=== PATIENT | female | born 1955 | race Caucasian/White ===

== ENCOUNTER 2020-01-20 09:34 | Outpatient (CLI) | payer MEDICARE, OTHER, SELFPAY ==
--- NOTE | 2020-01-20 09:41 | CT_ITS ---
WS: [id number] CT LUNG CANCER SCREENING DLP: 92.11 mGy.cm DIvol: 2.85 mGy CLINICAL INFORMATION SCREENING VISIT: Initial exam. COMPARISON: 01/07/2016 FINDINGS Diagnostic quality: Satisfactory Comments: None. Lung Nodules: There are small peripheral micronodules in the periphery of the lungs. These nodules al l measure less than 3 mm. No groundglass attenuation. Benign calcified 8 mm granuloma LEFT lower lobe . No endobronchial lesions. Lungs: Moderate pulmonary hyperinflation from emphysema. Heart: Normal size heart. No coronary artery calcifications identified. Other findings: Benign calcified LEFT hilar lymph nodes. Mild atherosclerosis aorta. CT/CT lung screening [id number] IMPRESSION: LUNG-RADS: 2-Benign Appearance or Behavior FOLLOW UP: 12 Month: Continue annual screening with LDCT
== END 2020-01-20 09:35 | disposition home or self-care (01) ==
LOC: RAD 09:38
PROVIDERS: Family Provider Nurse Practitioner Family; Visit Provider Nurse Practitioner Family
DX: Z12.2 Encounter for screening for malignant neoplasm of respiratory organs (principal); F17.210 Nicotine dependence, cigarettes, uncomplicated; R91.8 Other nonspecific abnormal finding of lung field; J43.9 Emphysema, unspecified
CPT/HCPCS: G0297

== ENCOUNTER 2020-04-01 15:34 | Outpatient (CLI) | payer MEDICARE, OTHER, SELFPAY ==
[2020-04-01 16:20] LABS: INR 1.06 (0.8-1.2)
[2020-04-01 16:26] LABS: Basophils % 1.3 %; Eosinophils # 0.1 10^3/uL (0.0-0.8); Hematocrit 40.7 % (37.0-47.0); Hemoglobin 13.2 g/dL (11.5-15.3); Lymphocytes # 0.6 10^3/uL (0.8-4.8); Mean Corpuscular HGB Conc 32.4 g/dL (30.0-36.0); Mean Corpuscular Hemoglobin 31.1 pg (28.0-34.0); Mean Platelet Volume 12.1 fL (7.4-10.4); Monocytes # 0.4 10^3/uL (0.2-0.9); Monocytes % 15.3 %; Neutrophils # 1.31 10^3/uL (1.8-7.7); Neutrophils % 55.4 %; Nucleated Red Blood Cells % 0 %; Platelet Count 81 10^3/cmm (130-400); Red Blood Count 4.24 10^6/uL (4.1-5.3); Red Cell Distribution Width 12.4 % (12.1-15.1); White Blood Count 2.4 10^3/uL (4.0-10.0)
[2020-04-01 16:37] LABS: Protein Urine Neg (Negative); Urine Appearance Cloudy (CLEAR); Urine Color Yellow (Yellow); pH Urine 7 (5-7)
[2020-04-01 16:38] LABS: Bilirubin Urine Neg (NEGATIVE); Blood Urine Neg (Negative); Glucose Urine UA Norm (Normal); Ketones Urine Negative (Negative); Leukocyte Esterase Urine 2+ (Negative); Nitrate Urine Negative (Negative); Urobilinogen Urine Norm (Negative)
[2020-04-01 16:49] LABS: Alanine Aminotransferase 100 U/L (0-33); Albumin Level 3.9 g/dL (3.5-5.2); Alkaline Phosphatase 116 IU/L (35-105); Aspartate Amino Transferase 116 U/L (0-32); Blood Urea Nitrogen 14 mg/dL (8-23); Calcium 8.4 mg/dL (8.5-10.5); Carbon Dioxide 24 mmol/L (22-29); Chloride 105 mmol/L (98-107); Globulin 3.8 g/dL (1.3-4.6); Glomerular Filtration Rate 83.5 mL/min (90-130); Glucose 106 mg/dL (65-115); Osmolality Calculated 283 mOsm/kg (285-295); Sodium 138 mmol/L (136-145); Thyroid Stimulating Hormone 0.05 uIU/mL (0.27-4.20); Total Bilirubin 0.9 mg/dL (0.15-1.2); Total Protein 7.7 g/dL (6.6-8.7)
[2020-04-01 16:53] LABS: RBC Urine 0-4 /hpf (0-2); WBC Urine 15-25 /hpf (0-5)
[2020-04-01 16:54] LABS: Add Urine Culture? Yes; Amorphous Sediment Urine 2+; Bacteria Urine 1+
== END 2020-04-01 15:35 | disposition home or self-care (01) ==
PROVIDERS: Family Provider Nurse Practitioner Family; Visit Provider Nurse Practitioner Family
DX: K73.2 Chronic active hepatitis, not elsewhere classified (principal); E03.9 Hypothyroidism, unspecified; N30.00 Acute cystitis without hematuria
CPT/HCPCS: 80053; 81001; 84443; 85025; 85610; 87086

== ENCOUNTER 2020-04-12 06:57 | Outpatient (CLI) | payer MEDICARE, OTHER, SELFPAY ==
--- NOTE | 2020-04-12 07:12 | US_ITS ---
WS: [id number] RIGHT UPPER QUADRANT ULTRASOUND HISTORY: Cirrhosis COMPARISON: 07/25/2019 Liver: 14.4 cm in length. Liver is top normal size. Mild heterogeneity. Surface of the liver is irreg ular and lobular. No mass. No bile duct dilatation. Gallbladder: Normally distended gallbladder with diffuse gallbladder wall thickening and edema. Sever al stones are identified. Diffuse wall thickening is likely related to hepatocellular disease. No catrachita dence for acute cholecystitis. CBD: 0.3 cm Pancreas: Poorly visualized. Mid body is normal. Otherwise not well seen. Right kidney: 8.1 cm in length. Normal echogenicity with no mass or hydronephrosis. Aorta and IVC: Unremarkable. No ascites. US/US abdomen limited [id number] IMPRESSION: 1. Moderate to severe changes of cirrhosis. No mass. 2. Cholelithiasis. No evidence for acute cholecystitis.
== END 2020-04-12 06:58 | disposition home or self-care (01) ==
PROVIDERS: Visit Provider Nurse Practitioner Family
DX: B19.20 Unspecified viral hepatitis C without hepatic coma (principal); K74.60 Unspecified cirrhosis of liver; K80.20 Calculus of gallbladder without cholecystitis without obstruction
CPT/HCPCS: 76705

== ENCOUNTER → 2020-08-13 16:07 | Outpatient (BNVA) | payer MEDICARE, OTHER, SELFPAY | PROVIDERS: PCP Family Medicine Sports Medicine; Visit Provider Nurse Practitioner Family | DX: Z01.812 Encounter for preprocedural laboratory examination (principal); Z20.828 Contact with and (suspected) exposure to other viral communicable diseases | CPT/HCPCS: 87635 ==

== ENCOUNTER 2020-08-16 11:47 | Outpatient (CLI) | payer MEDICARE, OTHER, SELFPAY ==
--- NOTE | 2020-08-16 12:07 | CT_ITS ---
WS: [id number] CT ABDOMEN AND PELVIS NONCONTRAST HISTORY: GROSS HEMATURIA TECHNIQUE: Imaging performed through the abdomen and pelvis. Coronal and sagittal reformats are submi tted. All CT scans at [facility] use at least one of these dose optimization techniques: automated exposure control; mA and/or kV adjustment per patient size (includes targeted exams where d ose is matched to clinical indication); or iterative reconstruction. DLP: 1408.61 mGy.cm COMPARISON: None available. Lower thorax: Chronic emphysematous changes. No mass. Normal size heart. Liver: Marked nodularity involving the surface of the liver. No intrahepatic dilatation. No mass iden tified on this unenhanced study. Gallbladder: Normally distended gallbladder with a very large central calcification. Calcification is lamellated with a maximum diameter of 3.5 cm. No adjacent inflammation. Pancreas: Normal size and attenuation. Normal pancreatic duct. No pancreatitis or mass. Spleen: Enlarged spleen measuring 15.5 cm in length. Adrenal glands: Normal. No mass. Right kidney: Normal size kidney with no mass or hydronephrosis. Left kidney: Normal size kidney with no mass or hydronephrosis. Aorta: Mild atherosclerosis abdominal aorta with no aneurysm. No free fluid, intraperitoneal air or significant lymphadenopathy. GI tract: Mild constipation. The appendix is normal size. There is a calcification within the appendi x measuring 7 mm. Abdominal wall: Negative. No hernia. Pelvis: No free fluid or adenopathy. No wall thickening of the urinary bladder. Osseous structures: Moderate degenerative disc disease at L4-5 and L5-S1. CT/CT kidney stone [id number] IMPRESSION: 1. No renal or ureteral calcifications or obstruction. 2. Cholelithiasis. Large central gallstone within the lumen. No evidence for a cute cholecystitis. 3. Severe cirrhosis with hepatosplenomegaly. 4. Normal size appendix. Appendix contains an appendicolith with places the pa tient at increased risk for developing acute appendicitis.
== END 2020-08-16 11:48 | disposition home or self-care (01) ==
LOC: RAD 11:50
PROVIDERS: PCP Family Medicine Sports Medicine; Visit Provider Nurse Practitioner Family
DX: R31.0 Gross hematuria (principal); K80.20 Calculus of gallbladder without cholecystitis without obstruction; K74.60 Unspecified cirrhosis of liver; R16.2 Hepatomegaly with splenomegaly, not elsewhere classified
CPT/HCPCS: 74176

== ENCOUNTER 2020-08-19 14:07 | Outpatient (CLI) | payer MEDICARE, OTHER, SELFPAY ==
--- NOTE | 2020-08-19 14:25 | PFTS_ITS ---
Date of Study:08/19/20 Date of Dictation: MECHANICS: Forced vital capacity (FVC) is . Forced expiratory volume in one second (FEV1) is . FEV1/FVC is . FLOW VOLUME LOOP: . LUNG VOLUMES: Total lung capacity (TLC) is . Residual volume (RV) is . DIFFUSING CAPACITY FOR CARBON MONOXIDE: . INTERPRETATION: The pulmonary function tests are . mechanics and lung volumes. Gas exchange (DLCO) is . MTDD
--- NOTE | 2020-08-19 14:25 | PFTS_ITS ---
Date of Study:08/19/20 Date of Dictation: MECHANICS: Forced vital capacity (FVC) is normal. Forced expiratory volume in one second (FEV1) is normal. FEV1/FVC is normal. FLOW VOLUME LOOP: Normal. LUNG VOLUMES: Not measured DIFFUSING CAPACITY FOR CARBON MONOXIDE: Not measured. INTERPRETATION: The prebronchodilator spirometry is normal. MTDD
--- NOTE | 2020-08-19 15:07 | XR_ITS ---
WS: [id number] SCREENING DEXA SCAN [employer] CLINICAL INFORMATION: ENCOUNTER FOR SCREENING FOR OSTEOPOROSIS COMPARISON: None. FINDINGS: The L1-L4 bone mineral density measures 0.959 g/cm2. This corresponds to a T score score of -1.8 and Z score of -0.8. Left femoral neck bone mineral density measures 0.878 g/cm2. This corresponds to a T score of -1.0 an d Z score of -0.1. Right femoral neck bone mineral density measures 0.847 g/cm2. This corresponds to a T score -1.3of an d Z score of -0.3. Mean femoral neck bone mineral density measures 0.863 g/cm2. This corresponds to a T score of -1.2 an d Z score of -0.2. Left forearm bone mineral density 0.66 with a T score of -2.4 and Z score of -0.8 XR/XR DEXA peripheral [id number] IMPRESSION: Osteopenia Patient's FRAX calculated 10 year probability for major osteoporotic fracture i s 29.3 % and osteoporotic hip fracture is 7.1%.
== END 2020-08-19 14:08 | disposition home or self-care (01) ==
LOC: RT 14:11
PROVIDERS: PCP Family Medicine Sports Medicine; Visit Provider Nurse Practitioner Family
DX: Z13.820 Encounter for screening for osteoporosis (principal); J44.9 Chronic obstructive pulmonary disease, unspecified; M85.88 Other specified disorders of bone density and structure, other site
CPT/HCPCS: 77081; 94010

== ENCOUNTER → 2020-08-27 09:09 | Outpatient (BNVA) | payer MEDICARE, OTHER, SELFPAY | PROVIDERS: PCP Family Medicine Sports Medicine; Referring Provider Nurse Practitioner Family; Visit Provider Urology | DX: R31.0 Gross hematuria (principal); N35.92 Unspecified urethral stricture, female; N39.9 Disorder of urinary system, unspecified | CPT/HCPCS: 81003 ==

== ENCOUNTER 2021-08-02 11:22 | Outpatient (CLI) | payer MEDICARE, OTHER, SELFPAY ==
--- NOTE | 2021-08-02 | CT_ITS ---
WS: [id number] LDCT LUNG CANCER SCREENING HISTORY: NICOTINE DEPENDENCE,CIGARETTES TECHNIQUE: Axial imaging performed from the apices to 1 cm below the costophrenic angles. Coronal and sagittal reformats are submitted with axial MIP series. All CT scans at [facility] use at least one of these dose optimization techniques: automated exposure control; mA and/or kV adjustment per patient size (includes targeted exams where dose is matched to clinical indication); or iterativ e reconstruction. DLP: 54.58 mGy.cm DIvol: 1.58 mGy COMPARISON: 01/20/2020 Diagnostic quality: Satisfactory Lung Nodules: No enlarging or new pulmonary nodules. Benign granuloma LEFT lower lobe. Lungs: Hyperexpanded with moderate pulmonary hypertension. No pneumonia. Heart: Normal size heart. No effusion. Other findings: Mild atherosclerotic plaque within the aorta. Normal size pulmonary artery. Large gallbladder calcification measures 3.[address]/CT lung screening [id number] IMPRESSION: LUNG-RADS: 2-Benign Appearance or Behavior FOLLOW UP: 12 Month: Continue annual screening with LDCT OTHER FINDINGS (S MODIFIER): None.
== END 2021-08-02 11:23 | disposition home or self-care (01) ==
PROVIDERS: PCP Family Medicine Sports Medicine; Visit Provider Nurse Practitioner Family
DX: Z12.2 Encounter for screening for malignant neoplasm of respiratory organs (principal); F17.210 Nicotine dependence, cigarettes, uncomplicated; R31.0 Gross hematuria
CPT/HCPCS: 71271; 81003; 87086

== ENCOUNTER → 2021-09-20 15:37 | Outpatient (BNVA) | payer MEDICARE, OTHER, SELFPAY | PROVIDERS: PCP Surgery; Visit Provider Urology | DX: N30.80 Other cystitis without hematuria (principal) | CPT/HCPCS: 81003; 87077; 87086; 87184 ==

== ENCOUNTER → 2021-10-24 14:10 | Outpatient (BNVA) | payer MEDICARE, OTHER, SELFPAY | PROVIDERS: PCP Surgery; Visit Provider Social Worker | DX: F43.21 Adjustment disorder with depressed mood (principal); F31.9 Bipolar disorder, unspecified | CPT/HCPCS: 90837; 90834 ==

== ENCOUNTER → 2021-12-01 14:16 | Outpatient (BNVA) | payer MEDICARE, OTHER, SELFPAY | PROVIDERS: PCP Surgery; Visit Provider Urology | DX: N30.80 Other cystitis without hematuria (principal) | CPT/HCPCS: 81003 ==

== ENCOUNTER → 2022-02-07 14:28 | Outpatient (BNVA) | payer MEDICARE, OTHER, SELFPAY | PROVIDERS: PCP Surgery; Visit Provider Urology | DX: N30.80 Other cystitis without hematuria (principal); N35.92 Unspecified urethral stricture, female | CPT/HCPCS: 51798; 81003; 87086; 99213 ==

== ENCOUNTER → 2022-04-11 13:03 | Outpatient (BNVA) | payer MEDICARE, SELFPAY | PROVIDERS: PCP Surgery; Visit Provider Urology | DX: N30.80 Other cystitis without hematuria (principal); N35.92 Unspecified urethral stricture, female; R35.1 Nocturia | CPT/HCPCS: 51798; 52281; 81003; 99213 ==

== ENCOUNTER → 2022-04-17 10:44 | Outpatient (BNVA) | payer MEDICARE, SELFPAY | PROVIDERS: PCP Surgery; Visit Provider Nurse Practitioner Family | DX: N30.80 Other cystitis without hematuria (principal); N35.92 Unspecified urethral stricture, female | CPT/HCPCS: 51700; 99213 ==

== ENCOUNTER → 2022-05-02 13:40 | Outpatient (BNVA) | payer MEDICARE, SELFPAY | PROVIDERS: PCP Surgery; Visit Provider Internal Medicine Cardiovascular Disease | DX: I11.0 Hypertensive heart disease with heart failure (principal); I50.32 Chronic diastolic (congestive) heart failure; B18.2 Chronic viral hepatitis C; F17.200 Nicotine dependence, unspecified, uncomplicated; R07.9 Chest pain, unspecified | CPT/HCPCS: 93005; 99214 ==

== ENCOUNTER → 2022-07-06 15:13 | Outpatient (BNVA) | payer MEDICARE, SELFPAY | PROVIDERS: PCP Surgery; Visit Provider Urology | DX: N30.80 Other cystitis without hematuria (principal); N35.92 Unspecified urethral stricture, female | CPT/HCPCS: 51798; 81003; 99213 ==

== ENCOUNTER → 2022-09-28 15:52 | Outpatient (BNVA) | payer MEDICARE, SELFPAY | PROVIDERS: PCP Surgery; Visit Provider Urology | DX: N30.80 Other cystitis without hematuria (principal); N35.82 Other urethral stricture, female | CPT/HCPCS: 51798; 81003; 99213 ==

== ENCOUNTER → 2022-10-31 13:48 | Outpatient (BNVA) | payer MEDICARE, SELFPAY | PROVIDERS: PCP Surgery; Visit Provider Internal Medicine Cardiovascular Disease | DX: I11.0 Hypertensive heart disease with heart failure (principal); I50.32 Chronic diastolic (congestive) heart failure; G20 Parkinson's disease; F17.210 Nicotine dependence, cigarettes, uncomplicated | CPT/HCPCS: 99214 ==

== ENCOUNTER 2022-12-21 10:11 | Outpatient (CLI) | payer MEDICARE, SELFPAY ==
--- NOTE | 2022-12-21 10:31 | CT_ITS ---
WS: [id number] LDCT LUNG CANCER SCREENING TECHNIQUE: Noncontrast CT of the chest with coronal and sagittal reformatted images. CLINICAL INFORMATION: NICOTINE DEPENDENCE,CIGARETTES COMPARISON: 2020 DLP: 60.67 mGy.cm DIvol: Mean CTDIvol: 1.00 (mGy) All CT scans at [facility] use at least one of these dose optimization techniques: automat ed exposure control; mA and/or kV adjustment per patient size (includes targeted exams where dose is matched to clinical indication); or iterative reconstruction. FINDINGS: Calcified granuloma LEFT lower lobe. Mild chronic emphysematous changes. No acute infiltrat es. Mild aortic calcification. Normal caliber thoracic aorta. Coronary calcification. No mediastinal or hilar lymphadenopathy. No axillary lymphadenopathy. Dense cholelithiasis. Adrenal glands are normal. Mild thoracic kyphosis. CT/CT lung screening [id number] IMPRESSION: LUNG-RADS: 2-Benign Appearance or Behavior FOLLOW UP: 12 Month: Continue annual screening with LDCT
== END 2022-12-21 10:12 | disposition home or self-care (01) ==
PROVIDERS: PCP Surgery; Visit Provider Nurse Practitioner Family
DX: Z12.2 Encounter for screening for malignant neoplasm of respiratory organs (principal); F17.210 Nicotine dependence, cigarettes, uncomplicated
CPT/HCPCS: 71271

== ENCOUNTER → 2023-01-24 13:33 | Outpatient (BNVA) | payer MEDICARE, SELFPAY | PROVIDERS: PCP Surgery; Visit Provider Urology | DX: N30.80 Other cystitis without hematuria (principal); R33.9 Retention of urine, unspecified; Z79.2 Long term (current) use of antibiotics; N35.92 Unspecified urethral stricture, female | CPT/HCPCS: 81003; 99213 ==

== ENCOUNTER → 2023-05-08 13:28 | Outpatient (BNVA) | payer MEDICARE, SELFPAY | PROVIDERS: PCP Surgery; Visit Provider Internal Medicine Cardiovascular Disease | DX: I11.0 Hypertensive heart disease with heart failure (principal); I50.32 Chronic diastolic (congestive) heart failure; G20 Parkinson's disease; B18.2 Chronic viral hepatitis C; F17.200 Nicotine dependence, unspecified, uncomplicated; R07.9 Chest pain, unspecified; R06.02 Shortness of breath | CPT/HCPCS: 36415; 80048; 83880; 99204 ==

== ENCOUNTER 2023-06-04 14:54 | Oncology outpatient (recurring) (ONCR) | payer MEDICARE, SELFPAY ==
[2023-06-04 17:16] LABS: Thyroid Stimulating Hormone 0.73 uIU/mL (0.27-4.20); Vitamin B12 585 pg/mL (232-1245)
[2023-06-04 17:33] LABS: HIV 1 & 2 Antibody Non-Reactive (Non-Reactiv); HIV 1 & 2 Antigen Non-Reactive (Non-Reactiv)
[2023-06-04 17:49] LABS: Folate Level > 20.0 ng/mL (4.8-37.3)
[2023-06-05 22:09] LABS: PTT-LA-Screen 31 sec (< OR = 40)
[2023-06-07 11:54] LABS: Anti-Nuclear Antibody Screen POSITIVE (NEGATIVE); Anti-Nuclear Antibody Titer > OR = 1:1280 titer
== END 2023-06-09 23:59 | disposition home or self-care (01) ==
LOC: ONCMED 14:55
PROVIDERS: PCP Surgery; Visit Provider Internal Medicine Medical Oncology
DX: D69.6 Thrombocytopenia, unspecified (principal); D72.810 Lymphocytopenia; I50.32 Chronic diastolic (congestive) heart failure; D73.1 Hypersplenism; K76.6 Portal hypertension
CPT/HCPCS: 36415; 82607; 82746; 84443; 85613; 85730; 86038; 87806; 99205

== ENCOUNTER 2023-07-03 12:36 | Oncology outpatient (recurring) (ONCR) | payer MEDICARE, SELFPAY | END 2023-07-10 23:59 | disposition home or self-care (01) | LOC: ONCMED 12:36 | PROVIDERS: PCP Surgery; Visit Provider Internal Medicine Medical Oncology | DX: D69.59 Other secondary thrombocytopenia (principal); D73.1 Hypersplenism; D72.810 Lymphocytopenia; Z79.899 Other long term (current) drug therapy | CPT/HCPCS: 99213 ==

== ENCOUNTER 2023-08-15 13:55 | Emergency (ER) | payer MEDICARE, SELFPAY ==
--- NOTE | 2023-08-15 14:02 | ECG_ITS ---
[facility] Test Date: 2023-08-15 Pat Name: Bárbara Mayfield Department: Room: Gender: Female Supervisor Coating: : 1955 Requested By: Sydney Camacho Order Number: [id number] Diane MD: Redd Hunt M.D. Measurements Intervals [place] Rate: 63 P: 77 NC: 139 QRS: -15 QRSD: 106 T: 62 QT: 398 QTc: 410 Interpretive Statements SINUS RHYTHM INCOMPLETE RIGHT BUNDLE BRANCH BLOCK [90+ ms QRS DURATION, TERMINAL R IN V1/V2, 40+ ms S IN I/aVL/V4/V5/V6] Non specific ST T wave changes Compared to ECG 12/07/2015 13:02:45 Incomplete right bundle-branch block now present Electronically Signed On 08-15-2023 15:29:10 HUMAN RESOURCES BENEFITS ASSISTANT by Redd Hunt M.D. [email or web address]/store/[id number]
--- NOTE | 2023-08-15 14:05 | XR_ITS ---
WS: [id number] Portable AP upright chest, 08/15/2023 Clinical Data: cp Comparison: Portable chest, 12/07/2015. Findings: No nodules, masses or effusions are seen. The heart is normal. The pulmonary vascularity is not increased. No pneumonia or pneumothorax is seen. There are calcified granulomas in both lungs. T he thoracic aorta shows mild tortuosity. There are monitor leads on the chest wall. Impression: Atherosclerosis and old granulomatous disease.
--- NOTE | 2023-08-15 14:05 | ECG_ITS ---
[facility] Test Date: 2023-08-15 Pat Name: Bárbara Mayfield Department: Room: Gender: Female Aligning Inspector: : 1955 Requested By: Sydney Camacho Order Number: [id number] Diane MD: Redd Hunt M.D. Measurements Intervals [place] Rate: 62 P: 73 AL: 147 QRS: 33 QRSD: 101 T: 66 QT: 403 QTc: 412 Interpretive Statements SINUS RHYTHM INCOMPLETE RIGHT BUNDLE BRANCH BLOCK [90+ ms QRS DURATION, TERMINAL R IN V1/V2, 40+ ms S IN I/aVL/V4/V5/V6] Compared to ECG 12/07/2015 13:02:45 Incomplete right bundle-branch block now present Electronically Signed On 08-15-2023 15:28:44 TONGUE AND QUARTER STITCHER by Redd Hunt M.D. [id number]
[2023-08-15 14:11] VITALS: BP 164/69; PULSE 62; RESP 18; TEMP 37.2; O2SAT 93; BMI 31.8
[2023-08-15 14:15] VITALS: BP 164/69; PULSE 64; RESP 18; O2SAT 92
--- NOTE | 2023-08-15 14:17 | ED_ITS ---
HPI - Chest Pain 2 General: Chief Complaint: Chest Pain Stated Complaint: chest pain Time Seen by Provider: 08/15/23 14:08 Source: patient Mode of arrival: ambulatory Limitations: no limitations History of Present Illness: 68-year-old female states that over the last 5 days she has had cough along with congestion she is a chronic smoker. She has been having sharp pains in her left chest over the last 5 days as well as states it is much worse with her cough and with palpation denies any known fever denies any vomiting or diarrhea. Associated symptoms: Reports dyspnea; Deny abdominal pain, fever(s), nausea or vomiting Review of Systems 2 Const: Denies: fever(s), chills, body aches or change in appetite Eyes: Denies: blurry vision or eye discomfort ENMT: Denies: throat pain or dental pain Card: Reports: chest pain Resp: Reports: dyspnea and non-productive cough GI: Denies: abdominal pain, nausea, vomiting or diarrhea : Denies: dysuria Musc: Denies: neck pain or back pain Skin/Breast: Denies: rash Neuro: Denies: headache(s) Psych: Denies: depression Hal/Lymph: Denies: easy bruising All/Imm: Denies: urticaria PFSH ED 2 PFSH: Medical History Bipolar disorder CHF (congestive heart failure) Cystitis cystica Gross hematuria Hepatitis C HTN (hypertension) Urethral stricture Discovered during gross hematuria work-up August 2020. Dilated and started SCIC for stricture patency maintenance. Family History Mother , at age 68 Myocardial infarct CAD (coronary artery disease), Onset Age: 50 Diabetes Cancer throat Lung disease Father , at age 77 Myocardial infarct CAD (coronary artery disease), Onset Age: 50 Stroke Hypertension Parkinson disease Dementia Brother Lung disease Sister Lung disease Denies family history of Clotting disorder Chronic kidney disease (CKD) Suicide Anesthesia complication Bleeding disorder Social History Smoking and tobacco/nicotine status: current every day tobacco/nicotine user cigarettes Packs smoked per day: 0.5 Years cigarettes smoked: 40 [ Other cigarette details: Trying to quit] Quit status (tobacco/nicotine): has tried quititng Alcohol intake: never Marital status: / Current occupational status: retired Course 2 Vital Signs: Vital signs: Vital Signs Temperature 98.9 F 08/15/23 14:11 Pulse Rate 63 08/15/23 17:19 Respiratory Rate 21 H 08/15/23 17:19 Blood Pressure 154/84 08/15/23 17:19 Pulse Oximetry 90 08/15/23 17:19 Oxygen Delivery Me thod Room Air 08/15/23 14:36 MDM - Chest Pain Medical Decision Making Patient presents for chest pains atypical in nature she is point tender on exam likely chest wall pain from coughing she has no signs of pneumonia does have a history of COPD likely has an upper respiratory infection we will did give her Decadron here she continue breathing treatments at home. She has no signs of acute coronary syndrome no signs of dissection no signs of pulmonary embolus. She is return to the ER if worsening. Medical Records I reviewed the patient's medical records. Lab Data I reviewed the patient's lab results. 08/15/23 14:24 08/15/23 14:24 Laboratory Results WBC 4.40 10^3/uL (3.29-11.43) 08/15/23 14:24 RBC 4.48 10^6/uL (3.85-5.65) 08/15/23 14:24 Hgb 14.10 g/dL (11.27-16.99) 08/15/23 14:24 Hct 42.1 % (36-47) 08/15/23 14:24 MCV 94.0 fl (85-98) 08/15/23 14:24 MCH 31.5 pg (27-33) 08/15/23 14:24 MCHC 33.5 g/dL (30-55) 08/15/23 14:24 RDW 13.2 % (12.1-15.1) 08/15/23 14:24 Plt Count 67 10^3/cmm (157-399) L 08/15/23 14:24 MPV 10.8 fL (7.4-10.4) H 08/15/23 14:24 Neut % (Auto) 68.4 % 08/15/23 14:24 Lymph % (Auto) 15.2 % 08/15/23 14:24 Campbell % (Auto) 13.4 % 08/15/23 14:24 Eos % (Auto) 2.0 % 08/15/23 14:24 Baso % (Auto) 0.5 % 08/15/23 14:24 Neut # (Auto) 3.01 10^3/uL (1.8-7.7) 08/15/23 14:24 Lymph # (Auto) 0.7 10^3/uL (0.8-4.8) L 08/15/23 14:24 Campbell # (Auto) 0.6 10^3/uL (0.2-0.9) 08/15/23 14:24 Eos # (Auto) 0.1 10^3/uL (0.0-0.8) 08/15/23 14:24 Baso # (Auto) 0.0 10^3/uL (0.0-0.1) 08/15/23 14:24 Nucleated RBC % (auto) 0 % 08/15/23 14:24 Nucleated RBCs # 0.0 /100WBC 08/15/23 14:24 Sodium 141 mmol/L (136-145) 08/15/23 14:24 Potassium 3.7 mmol/L (3.5-5.1) 08/15/23 14:24 Chloride 105 mmol/L (98-107) 08/15/23 14:24 Carbon Dioxide 27 mmol/L (22-29) 08/15/23 14:24 Anion Gap 12.7 (5-19) 08/15/23 14:24 BUN 16 mg/dL (8-23) 08/15/23 14:24 Creatinine 0.9 mg/dL (0.5-0.9) 08/15/23 14:24 GFR Calculation 61.9 mL/min (90-130) L 08/15/23 14:24 Glucose 96 mg/dL (65-115) 08/15/23 14:24 Calculated Osmolality 293 mOsm/kg (285-295) 08/15/23 14:24 Calcium 9.0 mg/dL (8.5-10.5) 08/15/23 14:24 Total Bilirubin 0.9 mg/dL (0.15-1.2) 08/15/23 14:24 AST 49 U/L (0-32) H 08/15/23 14:24 ALT 28 U/L (0-33) 08/15/23 14:24 Alkaline Phosphatase 82 U/L (35-105) 08/15/23 14:24 Troponin T Baseline 14 ng/L (0-10) H 08/15/23 14:24 Troponin T 120 Minute 13.32 ng/L (0-10) H 08/15/23 16:23 Delta Troponin T -0.68 ABS# (0-10) L 08/15/23 16:23 Total Protein 7.7 g/dL (6.6-8.7) 08/15/23 14:24 Albumin 3.8 g/dL (3.5-5.2) 08/15/23 14:24 Globulin 3.9 g/dL (1.3-4.6) 08/15/23 14:24 SARS-CoV-2 Ag (Rapid) negative (Negative) 08/15/23 15:13 All radiology interpretation(s) finalized by discharge EKG Data EKG 1: I personally reviewed and interpreted this EKG as follows: EKG interpretation date: 08/15/23 EKG interpretation time: 14:02 Interpretation: nsr hr [address] or t wave abnormalities qrs 101 qtc 409 Discharge Plan Discharge Patient Disposition: Home Clinical Impression: Acute upper respiratory infection, Chest wall pain Condition: Stable Prescriptions: New Naprosyn 500 mg tablet 500 mg PO BID PRN (Reason: pain) Qty: 20 0RF No Action albuterol sulfate [Ventolin HFA] 90 mcg/actuation HFA aerosol inhaler 2 puff INHALATION Q6H PRN (Reason: Shortness Of Breath Or Wheezing) magnesium oxide 400 mg magnesium capsule 400 mg PO DAILY potassium chloride 10 mEq tablet extended release 10 meq PO DAILY levothyroxine 100 mcg capsule 100 mcg PO DAILY pregabalin 100 mg capsule 100 mg PO BID alprazolam 0.25 mg tablet 0.25 mg PO DAILY omeprazole 20 mg capsule,delayed release(DR/EC) 20 mg PO DAILY buspirone 5 mg tablet 5 mg PO TID albuterol sulfate 2.5 mg/0.5 mL solution for nebulization 10 mg inhalation Q4H PRN (Reason: Shortness Of Breath Or Wheezing) nitroglycerin 0.4 mg tablet, sublingual 0.4 mg sublingual Q5M PRN (Reason: Chest Pain) Rx Instructions: do not exceed 3 doses per episode Probiotic (B. coagulans) 10 billion cell capsule,delayed release(DR/EC) 10 cell PO DAILY isosorbide mononitrate 30 mg tablet extended release 24 hr 15 mg PO DAILY Qty: 45 3RF furosemide 20 mg tablet 20 mg PO DAILY Qty: 90 3RF atenolol 25 mg tablet 25 mg PO DAILY sertraline 100 mg tablet 100 mg PO DAILY carbidopa-levodopa 25-100 mg tablet 1 tab PO TID nitrofurantoin macrocrystal 100 mg capsule 100 mg PO BID Rx Instructions: TAKE 1 CAPSULE BY MOUTH TWICE DAILY WITH MEAL/FOOD Discharge Orders: Discharge ED (Routine); Ordered 08/15/23 Ordered By: Sydney Camacho Referrals: BUNNY ADEN MD [Primary Care Provider] - 1-3 days Discharge Diet: Advance as tolerated Discharge Activity: Resume usual activity Patient Instructions: Upper Respiratory Infection (ED), Chest Wall Pain (ED) Coding Level of Care Code ED Warhead Maintenance Specialist for Barbara Yoder
[2023-08-15 14:36] VITALS: PULSE 62; RESP 16; O2SAT 94
[2023-08-15] MEDS: ondansetron 2 mg/ML SDV 2 mL 4 MG IVP (14:37)
[2023-08-15] MEDS: morphine 4 mg/mL SDV 1 mL IVP (14:37)
[2023-08-15] MEDS: ipratropium-albuterol 3 mL Neb INHALATION (14:39)
[2023-08-15 14:41] LABS: Basophils % 0.5 %; Eosinophils # 0.1 10^3/uL (0.0-0.8); Hematocrit 42.1 % (36-47); Lymphocytes # 0.7 10^3/uL (0.8-4.8); Lymphocytes % 15.2 %; Mean Corpuscular HGB Conc 33.5 g/dL (30-55); Mean Corpuscular Hemoglobin 31.5 pg (27-33); Mean Platelet Volume 10.8 fL (7.4-10.4); Monocytes # 0.6 10^3/uL (0.2-0.9); Monocytes % 13.4 %; Neutrophils # 3.01 10^3/uL (1.8-7.7); Neutrophils % 68.4 %; Nucleated Red Blood Cells % 0 %; Platelet Count 67 10^3/cmm (157-399); Red Blood Count 4.48 10^6/uL (3.85-5.65); Red Cell Distribution Width 13.2 % (12.1-15.1)
[2023-08-15 14:47] VITALS: PULSE 65
[2023-08-15 14:57] LABS: Alanine Aminotransferase 28 U/L (0-33); Albumin Level 3.8 g/dL (3.5-5.2); Alkaline Phosphatase 82 U/L (35-105); Anion Gap 12.7 (5-19); Aspartate Amino Transferase 49 U/L (0-32); Blood Urea Nitrogen 16 mg/dL (8-23); Carbon Dioxide 27 mmol/L (22-29); Chloride 105 mmol/L (98-107); Globulin 3.9 g/dL (1.3-4.6); Glomerular Filtration Rate 61.9 mL/min (90-130); Glucose 96 mg/dL (65-115); Osmolality Calculated 293 mOsm/kg (285-295); Potassium 3.7 mmol/L (3.5-5.1); Sodium 141 mmol/L (136-145); Total Bilirubin 0.9 mg/dL (0.15-1.2); Total Protein 7.7 g/dL (6.6-8.7)
[2023-08-15 14:58] LABS: Troponin(5th) Baseline 14 ng/L (0-10)
[2023-08-15 15:33] LABS: SARS Covid-2 Antigen negative (Negative)
--- NOTE | 2023-08-15 15:52 | PC.PHAR ---
EXTERNAL MED LIST SHOWS CARBIDOPA-LEVODOPA 25-100 TID FILLED 05/2023 90DS ALSO SHOWS CARBIDOPA-LEVODOPA 10-100 TID FILLED 07/05/23 90DS- PT HAS MEDIICATIONS IN THE ROOM WITH HER AND ONLY HAS THE 25-100 TID FILLED IN - PT STS THAT IS THE ONLY ONE SHE IS TAKING- SHIRA STATES THEY FILLED THE 10-100 IN JUNE AND IT WAS PICKED UP
--- NOTE | 2023-08-15 16:09 | ECG_ITS ---
[facility] Test Date: 2023-08-15 Pat Name: Bárbara Mayfield Department: Room: Gender: Female Diesel Technician: : 1955 Requested By: Sydney Camacho Order Number: [id number] Diane MD: Redd Hunt M.D. Measurements Intervals [place] Rate: 61 P: 61 OK: 156 QRS: 1 QRSD: 99 T: 61 QT: 442 QTc: 446 Interpretive Statements SINUS RHYTHM INCOMPLETE RIGHT BUNDLE BRANCH BLOCK [90+ ms QRS DURATION, TERMINAL R IN V1/V2, 40+ ms S IN I/aVL/V4/V5/V6] Compared to ECG 08/15/2023 14:05:50 No significant changes Electronically Signed On 08-15-2023 16:40:51 PAINT ROLLER COVERS SUPERVISOR by Redd Hunt M.D. [id number]
[2023-08-15 16:52] LABS: Troponin 5 2HR 13.32 ng/L (0-10)
[2023-08-15 16:54] LABS: Troponin 5 2HR Delta -0.68 ABS# (0-10)
[2023-08-15] MEDS: dexamethasone 10 mg/mL INJ IVP (17:12)
[2023-08-15 17:19] VITALS: BP 154/84; PULSE 63; RESP 21; O2SAT 90
== END 2023-08-15 17:20 | disposition home or self-care (01) ==
PROVIDERS: Emergency Provider Emergency Medicine; PCP Surgery
DX: J06.9 Acute upper respiratory infection, unspecified (principal); R07.89 Other chest pain; Z11.52 Encounter for screening for COVID-19; F17.210 Nicotine dependence, cigarettes, uncomplicated; I11.0 Hypertensive heart disease with heart failure; I50.9 Heart failure, unspecified; Z86.19 Personal history of other infectious and parasitic diseases
CPT/HCPCS: 36415; 71045; 80053; 84484; 85025; 87426; 93005; 94640; 96374; 96375; 99285; J1100; J2270; J2405

== ENCOUNTER 2023-08-23 09:06 | Outpatient (BNVA) | payer MEDICARE, SELFPAY | END 2023-08-23 11:03 | disposition home or self-care (01) | PROVIDERS: PCP Surgery; Visit Provider Internal Medicine Hematology & Oncology | DX: D69.59 Other secondary thrombocytopenia (principal); B18.2 Chronic viral hepatitis C; K74.69 Other cirrhosis of liver; R16.2 Hepatomegaly with splenomegaly, not elsewhere classified; M77.32 Calcaneal spur, left foot; F17.210 Nicotine dependence, cigarettes, uncomplicated | CPT/HCPCS: 36415; 82105; 85025; 87522; 99214 ==

== ENCOUNTER 2023-10-08 10:00 | Oncology outpatient (recurring) (ONCR) | payer MEDICARE, SELFPAY ==
--- NOTE | 2023-09-13 15:08 | MM_ITS ---
WS: [id number] BILATERAL SCREENING DIGITAL TOMOSYNTHESIS MAMMOGRAM WITH CAD HISTORY: SCREENING COMPARISON: 09/28/2014 Bilateral CC and MLO views with tomosynthesis and synthetic mammography submitted. Computer aided det ection analyzed. Breast composition: There are scattered areas of fibroglandular density. No suspicious masses, microc alcifications or architectural distortion. Long-term stability 6 mm nodule in the medial RIGHT breast . IMPRESSION: MM/[place] [id number] BI-RADS: 2-Benign FOLLOW UP: 1 Year Follow-up
== END 2023-10-10 23:59 | disposition home or self-care (01) ==
PROVIDERS: PCP Surgery; Visit Provider Internal Medicine Medical Oncology
DX: Z53.9 Procedure and treatment not carried out, unspecified reason (principal)
CPT/HCPCS: 36415; 77063; 77067; 82105; 85025; 87522; 99214

== ENCOUNTER 2023-12-21 10:05 | Outpatient (CLI) | payer MEDICARE, SELFPAY ==
--- NOTE | 2023-12-21 10:45 | US_ITS ---
WS: [id number] Complete ABDOMINAL ULTRASOUND HISTORY: hep c COMPARISON: 04/12/2020 Liver: 14.8 cm in length. Cirrhotic liver. Marked nodularity along the surface of the liver. No mass identified. Portal Vein: Normal hepatopetal flow with monophasic waveform. Gallbladder: Normally distended gallbladder with a large central stone. Calcification measures 2.9 cm in diameter and fills a large portion of the gallbladder. There may be a small amount of sludge mariana cent to the stone. CBD: 0.7 cm Pancreas: Normal size and echogenicity. Right kidney: 10.4 cm x 4.7 x 4.4 cm. Cortex:1.2 cm. Normal size and echogenicity. No hydronephrosis or mass. Left kidney: 10.2 cm x 4.8 cm x 4.1 cm. Cortex: 1.0 cm. Normal size and echogenicity. No hydronephrosis or mass. Spleen: 14.4 cm. Mildly enlarged spleen. Aorta and IVC: Poorly visualized. Impression: 1. Cholelithiasis. There is a large stone within the lumen of the gallbladder. No wall thickening. 2. Common bile duct is measuring top normal size. 3. Advanced cirrhosis with splenomegaly.
== END 2023-12-21 10:06 | disposition home or self-care (01) ==
PROVIDERS: PCP Surgery; Visit Provider Internal Medicine Hematology & Oncology
DX: B19.20 Unspecified viral hepatitis C without hepatic coma (principal); D69.6 Thrombocytopenia, unspecified; R16.2 Hepatomegaly with splenomegaly, not elsewhere classified; K80.20 Calculus of gallbladder without cholecystitis without obstruction; K74.60 Unspecified cirrhosis of liver; R16.1 Splenomegaly, not elsewhere classified
CPT/HCPCS: 76700

== ENCOUNTER 2024-01-03 12:01 | Oncology outpatient (recurring) (ONCR) | payer MEDICARE, SELFPAY ==
[2024-01-03 12:50] LABS: Eosinophils # 0.1 10^3/uL (0.0-0.8); Eosinophils % 2.9 %; Hematocrit 41.6 % (36-47); Lymphocytes # 0.7 10^3/uL (0.8-4.8); Mean Corpuscular HGB Conc 32.9 g/dL (30-55); Mean Corpuscular Volume 94.1 fl (85-98); Mean Platelet Volume 11.2 fL (7.4-10.4); Monocytes # 0.5 10^3/uL (0.2-0.9); Monocytes % 12.3 %; Neutrophils # 2.54 10^3/uL (1.8-7.7); Neutrophils % 66.5 %; Nucleated Red Blood Cells % 0 %; Platelet Count 67 10^3/cmm (157-399); Red Blood Count 4.42 10^6/uL (3.85-5.65); Red Cell Distribution Width 13.4 % (12.1-15.1); White Blood Count 3.82 10^3/uL (3.29-11.43)
[2024-01-03 13:07] LABS: Alanine Aminotransferase 19 U/L (0-33); Albumin Level 3.7 g/dL (3.5-5.2); Alkaline Phosphatase 105 U/L (35-105); Anion Gap 11.9 (5-19); Aspartate Amino Transferase 56 U/L (0-32); Blood Urea Nitrogen 11 mg/dL (8-23); Calcium 8.6 mg/dL (8.5-10.5); Carbon Dioxide 26 mmol/L (22-29); Chloride 107 mmol/L (98-107); Creatinine Clr Calc Pharmacy 67.4978; Globulin 3.9 g/dL (1.3-4.6); Glomerular Filtration Rate 70.9 mL/min (90-130); Glucose 95 mg/dL (65-115); Osmolality Calculated 291 mOsm/kg (285-295); Potassium 3.9 mmol/L (3.5-5.1); Sodium 141 mmol/L (136-145); Total Protein 7.6 g/dL (6.6-8.7)
== END 2024-01-08 23:59 | disposition home or self-care (01) ==
PROVIDERS: Internal Medicine; PCP Surgery; Visit Provider Internal Medicine Hematology & Oncology
DX: Z12.31 Encounter for screening mammogram for malignant neoplasm of breast (principal); D69.59 Other secondary thrombocytopenia; D73.1 Hypersplenism; D72.810 Lymphocytopenia; Z79.899 Other long term (current) drug therapy
CPT/HCPCS: 36415; 80053; 85025; 99214

== ENCOUNTER 2024-02-20 13:07 | Oncology outpatient (recurring) (ONCR) | payer MEDICARE, SELFPAY ==
[2024-02-20 13:56] LABS: Eosinophils # 0.1 10^3/uL (0.0-0.8); Hematocrit 40.7 % (36-47); Lymphocytes # 0.7 10^3/uL (0.8-4.8); Lymphocytes % 17.2 %; Mean Corpuscular HGB Conc 33.4 g/dL (30-55); Mean Corpuscular Hemoglobin 31.1 pg (27-33); Mean Corpuscular Volume 93.1 fl (85-98); Mean Platelet Volume 12.4 fL (7.4-10.4); Monocytes # 0.5 10^3/uL (0.2-0.9); Monocytes % 11.9 %; Neutrophils # 2.64 10^3/uL (1.8-7.7); Neutrophils % 66.6 %; Nucleated Red Blood Cells % 0 %; Platelet Count 61 10^3/cmm (157-399); Red Blood Count 4.37 10^6/uL (3.85-5.65); Red Cell Distribution Width 12.9 % (12.1-15.1); White Blood Count 3.96 10^3/uL (3.29-11.43)
[2024-02-20 14:23] LABS: Alanine Aminotransferase 24 U/L (0-33); Albumin Level 3.6 g/dL (3.5-5.2); Alkaline Phosphatase 105 U/L (35-105); Anion Gap 12.4 (5-19); Aspartate Amino Transferase 44 U/L (0-32); Blood Urea Nitrogen 14 mg/dL (8-23); Calcium 8.7 mg/dL (8.5-10.5); Carbon Dioxide 24 mmol/L (22-29); Chloride 104 mmol/L (98-107); Globulin 3.8 g/dL (1.3-4.6); Glucose 93 mg/dL (65-115); Osmolality Calculated 282 mOsm/kg (285-295); Potassium 4.4 mmol/L (3.5-5.1); Sodium 136 mmol/L (136-145); Total Bilirubin 0.8 mg/dL (0.15-1.2); Total Protein 7.4 g/dL (6.6-8.7)
== END 2024-03-09 23:59 | disposition home or self-care (01) ==
LOC: ONCMED 13:08
PROVIDERS: Internal Medicine Medical Oncology; PCP Surgery; Visit Provider Internal Medicine Hematology & Oncology
DX: D69.6 Thrombocytopenia, unspecified (principal); D69.59 Other secondary thrombocytopenia; D73.1 Hypersplenism
CPT/HCPCS: 36415; 80053; 85025; 99214

== ENCOUNTER 2025-06-07 11:13 | Inpatient (IN) | payer MEDICARE, SELFPAY ==
--- OUTSIDE RECORDS SUMMARY | 2021-01-24 03:28 | XMS_ITS | Continuity of Care Document ---
Author Organization [facility] Address [address] [place] [address] Phone Care Team Providers Care Job Setter Honing Name Role Phone Unavailable Unavailable Unavailable Allergies, Adverse Reactions, Alerts Substance Reaction Status Criticality PENICILLIN rash(severe) Active No Information erythromycin base Active No Informa tion codeine Anaphylaxis(severe) Active No Infor mation Medications Medication Instructions Dosage Effective Dates (start - stop) Status Comments LYRICA (unknown strength) Not Available - Active PROPRANOLOL HCL ER (unknown strength) Not Available - Active POTASSIUM ACETATE (unknown strength) Not Available - Active PROAIR RESPICLICK (unknown strength) Not Available - Active ISOSORBIDE MONONITRATE (unknown strength) Not Available - Active SYNTHROID (unknown strength) Not Available - Active Procedures Procedure Date COVID-19 In House Handl/convey Specmn-offic To L Offic/outpt E&m [facility] Services provided in an urgent care cent er Advance Directives Directive Yes / No Effective Date File Name No Information Encounters Encounter Description Practice Location Reason(s) For Visit Diagnoses Date Provider Providers Copied on Encounter [facility], [address], [place], [place], [id number] , [place] tel:[phone] [facility] No Information No Information Offic/outpt E&m [facility], [address], [place], [place], [id number] , [place] tel:[phone] [facility] Asymptomatic COVID evaluation (chief complaint) Contact with and (suspected) exposure to COVID-19 No Information Family History Family Member Type Diagnosis Age At Onset No Information Payers Payer name Insurance type Covered libertarian ID Shauna olivares(s) Medicare B GARETH [id number] Commercial Insurance [facility] [id number] Social History Type Description Quantity Date Captured Comments Alcohol Use Details Unknown Caffeine Use Details Unknown Tobacco Use Status Smoking Status No Information Sex Female Chief Complaint And Reason For Visit No Information Reason For Referral Reason For Referral No Information History Of Present Illness Encounter Date Complaint History Of Prese nt Illness Asymptomatic COVID evaluation On set of symptoms was asymptomatic. Symptoms are asymptomatic. Episodes occur asymptomatic. The patient notes asymptomatic. Context: No known exposure to COVID-19 but lives in a community w/known transmission.She denies any presenting symptoms. The patient does not present with abdominal pain, anorexia, arthralgia, back pain, chills, cough, diarrhea, fatigue, fever, generalized weakness, headache, loss of smell, lymphadenopathy, myalgia, nasal congestion, nausea, runny nose, shortness of breath, sore throat, change in taste or vomiting. Denies aggravating factors. Functional Status Date Functional Assessmen t No Information Instructions Date Instruction Additional Infor mation No Information Assessments Type Assessment Date No Information Patient Care Teams Name Effective Dates (start - stop) Status Members No Information
--- OUTSIDE RECORDS SUMMARY | 2024-04-17 08:20 | XMS_ITS ---
Author Organization [employer] Address [address] [place] [address] Care Team Providers Care Director Quality Assurance Name Role Phone Caden Haas Primary Care Provider Unavailab JOHN Webb Unavailable [phone] Clint Yuen Unavailable Unavailable GUSTAVO HOLLAND Unavailable [phone] REASON FOR VISIT urethral stricture Problems Problem Type SNOMED Code ICD Code Onset Dates Problem Status W/U Status Risk Notes Problem Chronic cystitis (19778971) Chronic cystitis (N30.20) Active confirmed Procedures Procedure Date Ordered Date Performed Result Body Sit e Bladder Scan 04/17/2024 N/A Encounters Encounter Location Date Provider Diagnosis [facility] [address] [place] [address] 04/17/2024 GUSTAVO HOLLAND Chronic cystitis N30.20 and Urethral stricture unspecified N35.919 Assessments Encounter Date Diagnosis (ICD Code) Assessment Notes Treatment Notes Treatment Clinical Notes Section Notes 04/17/2024 Chronic cystitis (ICD-10 - N30.20) 04/17/2024 Urethral stricture unspecified (ICD-10 - N35.919) Plan Of Treatment Pending Test Test Name Order Date Urinalysis, Routine 04/17/2024 Bladder Scan 04/17/2024 Progress Notes * Bárbara MAYFIELD JDOB:[birth year] (70 yo F)Acc No.[id number]:04/17/2024 Progress Notes Patient: Belen MOLINABárbara Provider: Laura Holland APRN :1955 A ge:69 Y S ex:Female Date:04/17/2024 Address:[address], [address] , [facility] Pcp:Caden Haas Subjective: * Chief Complaints: * 1 . Urethral stricture. * HPI: * : Pt is a 69yoF who is here today to transfer care from Dr. Yuen. She has a h/o gross hematuria with negative workup with CT and cystoscopy in August 2020. She did have dense urethral stricture and has undergone q6m in-office dilation. Her last dilation was . She performs CIC . She failed macrobid suppression and was then placed on methanamine suppression for UTI prevention. * Medical History: Objective: * Vitals: Assessment: * Assessment: 1. C hronic cystitis - N30.20 (Primary) 2 . U rethral stricture unspecified - N35.919 Plan: * Treatment: * Procedure Codes: 8 1003 URINALYSIS, AUTO, W/O SCOPE, 81063 US URINE CAPACITY MEASURE * Billing Information: * Visit Code: * Procedure Codes: 30344 URINALYSIS, AUTO, W/O SCOPE. 01392 US URINE CAPACITY MEASURE. * Electronic signature of PEDRO LUIS HOLLAND APRN on 06/07/2025 at 11:29 AM CDT Sign off status: Pending * Provider: Laura Holland APRN Date: 0 04/17/2024 Generated for Vianey veras/Renetta/Yenniitting on: 0 06/07/2025 11:29 AM CDT History and Physical Notes * HPI (History of Present Illness) Category Sub-Category Detail Notes Category Not es Pt is a 69yoF w ho is here today to transfer care from Dr. Yuen. She has a h/o gross hematuria with negative workup with CT and cystoscopy in August 2020. She did have dense urethral stricture and has undergone q6m in-office dilation. Her last dilation was . She performs CIC . She failed macrobid suppression and was then placed on methanamine suppression for UTI prevention.
--- OUTSIDE RECORDS SUMMARY | 2024-04-17 08:20 | XMS_ITS ---
Author Organization [employer] [employer] Address [address] [place] [address] Care Team Providers Care Supervisor Tumblers Name Role Phone Caden Haas Primary Care Provider Unavailab JOHN Webb Unavailable [phone] Clint Yuen Unavailable Unavailable GUSTAVO HOLLAND Unavailable [phone] REASON FOR VISIT urethral stricture Problems Problem Type SNOMED Code ICD Code Onset Dates Problem Status W/U Status Risk Notes Problem Chronic cystitis (47578944) Chronic cystitis (N30.20) Active confirmed Procedures Procedure Date Ordered Date Performed Result Body Sit e Bladder Scan 04/17/2024 N/A Encounters Encounter Location Date Provider Diagnosis [facility] [address] [place] [address] 04/17/2024 GUSTAVO HOLLAND Chronic cystitis N30.20 and [...] Bárbara MAYFIELD JDOB:[birth year] (70 yo F)Acc No.[id number]:04/17/2024 Progress Notes Patient: Belen MOLINABárbara Provider: Laura Holland APRN :1955 A ge:69 Y S ex:Female Date:04/17/2024 Address:[address] [facility] Pcp:Caden Haas Subjective: * Chief Complaints: [...] Codes: 8 1003 URINALYSIS, AUTO, W/O SCOPE, 20339 US URINE CAPACITY MEASURE * Billing Information: * Visit Code: * Procedure Codes: 12106 URINALYSIS, AUTO, W/O SCOPE. 43691 US URINE CAPACITY MEASURE. * Electronic signature of PEDRO LUIS HOLLAND APRN on 06/09/2025 at 10:35 AM CDT Sign off status: Pending * Provider: Laura Holland APRN Date: 0 04/17/2024 Generated for Vianey veras/Renetta/Yenniitting on: 0 06/09/2025 10:35 AM CDT History and Physical Notes * [...]
--- OUTSIDE RECORDS SUMMARY | 2024-05-29 08:00 | XMS_ITS ---
Author Organization [facility] Address [address] [facility] [place] [address] Care Team Providers Care Material Expeditor Name Role Phone Kwesi Carmichael Primary Care Provider UnavailJacky Olsen Unavailable Jorge Cohen Unavailable Unavailable Elicia Mcarthur Unavailable [phone] REASON FOR VISIT [id number] 3 mo f/u - Hep C Encounters Encounter Location Date Provider Diagnosis [facility] [address] [facility] [place] [address] 05/29/2024 Elicia Mcarthur Plan Of Treatment No Information Progress Notes * Bárbara MAYFIELDDOB:[birth year] (70 yo F)Acc No.[id number]:05/29/2024 Progress Notes Patient: Belen padronBárbara ca Provider: Sterling Mcarthur APRN :1955 A ge:69 Y S ex:Female Date:05/29/2024 Address:[address], [address], [place], [place] Pcp:Kwesi Carmichael Subjective: * Chief Complaints: * 6 [id number] 3 mo f/u - Hep C Billing Information: * Procedure Codes: Care Plan Details* * Electronic signature of Marco Mcarthur APRN on 06/09/2025 at 10:35 AM CDT Sign off status: Pending * Provider: Sterling Mcarthur APRN Date: 0 05/29/2024 Generated for Vianey veras/Renetta/Yeny on: 0 06/09/2025 10:35 AM MICHELLE
--- OUTSIDE RECORDS SUMMARY | 2024-05-29 08:00 | XMS_ITS ---
Author Organization [facility] Address [address] [facility] [place] [address] Care Team Providers Care Personal Computer Specialist Name Role Phone Kwesi Carmichael Primary Care Provider UnavailJacky Olsen Unavailable Jorge Cohen Unavailable Unavailable Elicia Mcarthur Unavailable [phone] REASON FOR VISIT [id number] 3 mo f/u - Hep C Encounters Encounter Location Date Provider Diagnosis [facility] [address] [place] [address] 05/29/2024 Elicia Mcarthur Plan Of Treatment No Information Progress Notes * Bárbara MAYFIELDDOB:[birth year] (70 yo F)Acc No.[id number]:05/29/2024 Progress Notes Patient: Belen padronBárbara ca Provider: Sterling Mcarthur APRN :1955 A ge:69 Y S ex:Female Date:05/29/2024 Address:[address], [address], [place], [place] Pcp:Kwesi Carmichael Subjective: * Chief Complaints: * 6 [id number] 3 mo f/u - Hep C Billing Information: * Procedure Codes: Care Plan Details* * Electronic signature of Marco Mcarthur APRN on 06/07/2025 at 11:28 AM CDT Sign off status: Pending * Provider: Sterling Mcarthur APRN Date: 0 05/29/2024 Generated for Vianey veras/Renetta/Yeny on: 0 06/07/2025 11:28 AM MICHELLE
--- OUTSIDE RECORDS SUMMARY | 2024-11-13 10:00 | XMS_ITS ---
Author Organization [facility] [employer] Address [address] [place] [address] Care Team Providers Care Lace Roller Name Role Phone Caden Haas Primary Care Provider Unavailab JOHN Webb Unavailable [phone] Clint Yuen Unavailable Unavailable GUSTAVO HOLLAND Unavailable [phone] REASON FOR VISIT 6 mo w/ ua/pvr Encounters Encounter Location Date Provider Diagnosis [facility] [address] [place] [address] 11/13/2024 GUSTAVO HOLLAND Plan Of Treatment No Information Progress Notes * Bárbara MAYFIELDDOB:[birth year] (70 yo F)Acc No.[id number]:11/13/2024 Progress Notes Patient: Belen MOLINA Bárbara Sanchez Provider: Laura Holland APRN :1955 A ge:69 Y S ex:Female Date:11/13/2024 Address:[address], [address] [place] [address] Pcp:Caden Haas Subjective: * Chief Complaints: * 1 . 6 mo w/ ua/pvr. * Medical History: Objective: * Vitals: Assessment: Plan: * Treatment: * Billing Information: * Visit Code: * Procedure Codes: * Electronic signature of PEDRO LUIS HOLLAND APRN on 06/07/2025 at 11:29 AM CDT Sign off status: Pending * Provider: Laura Holland APRN Date: 0 11/13/2024 Generated for Vianey veras/Renetta/Yenniitting on: 0 06/07/2025 11:29 AM CDT
--- OUTSIDE RECORDS SUMMARY | 2024-11-13 10:00 | XMS_ITS ---
Author Organization [employer] [employer] Address [address] [place] [address] Care Team Providers Care Service Or Work Dispatcher Chief Name Role Phone Caden Haas Primary Care Provider Unavailab JOHN Webb Unavailable [phone] Clint Yuen Unavailable Unavailable GUSTAVO HOLLAND Unavailable [phone] REASON FOR VISIT 6 mo w/ ua/pvr Encounters Encounter Location Date Provider Diagnosis [facility] [address] [place] [address] 11/13/2024 GUSTAVO HOLLAND Plan Of Treatment No Information Progress Notes * Bárbara MAYFIELDDOB:[birth year] (70 yo F)Acc No.[id number]:11/13/2024 Progress Notes Patient: Belen MOLINA Bárbara Sanchez Provider: Laura Holland APRN :1955 A ge:69 Y S ex:Female Date:11/13/2024 Address:[address], [address] [place] [address] Pcp:Caden Haas Subjective: * Chief Complaints: * [...] 11/13/2024 Generated for Vianey veras/Renetta/Yenniitting on: 0 06/09/2025 10:35 AM CDT
--- OUTSIDE RECORDS SUMMARY | 2025-02-17 08:40 | XMS_ITS ---
Author Organization [facility] Address [address] [place] [address] Care Team Providers Care Arranger Assembler Name Role Phone Kwesi Carmichael Primary Care Provider Jacky Robles Unavailable Jorge Cohen Unavailable Unavailable REASON FOR VISIT 4 MONTH F/U Encounters Encounter Location Date Provider Diagnosis [facility] [address] [place] [address] 02/17/2025 Jacky Ritter Plan Of Treatment No Information Progress Notes * Bárbara MAYFIELDDOB:[birth year] (70 yo F)Acc No.[id number]:02/17/2025 Progress Notes Patient: Belen lawrence Bárbara Sanchez Provider: Kelley Ritter MD :1955 A ge:70 Y S ex:Female Date:02/17/2025 Address:[address], [address], [place], [place] Pcp:Kwesi Carmichael Subjective: * Chief Complaints: * 4 MONTH F/U Care Plan Details* * Electronic signature of Marlee Ritter MD on 06/09/2025 at 10:34 AM CDT Sign off status: Pending * Provider: Kelley Ritter MD Date: 0 02/17/2025 Generated for Franciscoi ng/Faxing/eTransmitting on: 0 06/09/2025 10:34 AM CDT
--- OUTSIDE RECORDS SUMMARY | 2025-02-17 08:40 | XMS_ITS ---
Author Organization [facility] Address [address] [place] [address] Care Team Providers Care Plush Dresser Name Role Phone Kwesi Carmichael Primary Care Provider Jacky Robles Unavailable Jorge Cohen Unavailable Unavailable REASON FOR VISIT 4 MONTH F/U Encounters Encounter Location Date Provider Diagnosis [facility] [address] [place] [address] 02/17/2025 Jacky Ritter Plan Of Treatment No Information Progress Notes * Bárbara MAYFIELDDOB:[birth year] (70 yo F)Acc No.[id number]:02/17/2025 Progress Notes Patient: Belen lawrence Bárbara Sanchez Provider: Kelley Ritter MD :1955 A ge:70 Y S ex:Female Date:02/17/2025 Address:[address], [address], [place], [place] Pcp:Kwesi Carmichael Subjective: * Chief Complaints: * 4 MONTH F/U Care Plan Details* * Electronic signature of Marlee Ritter MD on 06/07/2025 at 11:28 AM CDT Sign off status: Pending * Provider: Kelley Ritter MD Date: 0 02/17/2025 Generated for Franciscoi ng/Faxing/eTransmitting on: 0 06/07/2025 11:28 AM CDT
--- OUTSIDE RECORDS SUMMARY | 2025-06-04 15:30 | XMS_ITS | Encounter Summary ---
Author Organization [facility] Address [address] [place] [address] Care Team Providers Care Help Aid Name Role Phone Dae Peacock MD Primary Care Provider [phone] Reason for Referral * Outpatient Surgery (Routine) - Open Specialty Diagnoses / Procedures Referred By Contact Referred To Contact Gastroenterology / Perioperative Diagnoses History of hepatitis C Procedures EGD ID ESOPHAGOGASTRODUODENOSCOPY TRANSORAL DIAGNOSTIC ID EGD TRANSORAL BIOPSY SINGLE/MULTIPLE ID EGD BALLOON DILATION ESOPHAGUS <30 MM DIAM ID DILATION ESOPH UNGUIDED SOUND/BOUGIE 1/MULT PASS Uli Gladis Allen FNP [address] [facility] [address] [place] [address] Phone: tel:[phone] fax:[phone] [facility] [place] [address] [facility] [address] [place] [address] Phone: tel:[phone] fax:[phone] Referral ID Status Reason Start Date Expiration Date Visits Requested Visits Authorized [id number] Open Performing Department to Schedule 06/04/2025 07/05/2026 1 1 * Outpatient Surgery (Routine) - Open Specialty Diagnoses / Procedures Referred By Contact Referred To Contact Gastroenterology / Perioperative Diagnoses History of hepatitis C H/O colonoscopy with polypectomy Procedures ENDOSCOPY, COLON, DIAGNOSTIC ID COLONOSCOPY FLX DX W/COLLJ SPEC WHEN PFRMD ID COLONOSCOPY W/BIOPSY SINGLE/MULTIPLE ID COLSC FLX WITH DIRECTED SUBMUCOSAL NJX ANY SBST ID COLSC FLX W/RMVL OF TUMOR POLYP LESION SNARE TQ Uli Gladis Allen FNP [address] [facility] [address] [place] [address] Phone: tel: fax:[phone] [facility] [place] [address] [facility] [address] [place] [address] Phone: tel: fax: Referral ID Status Reason Start Date Expiration Date Visits Requested Visits Authorized [id number] Open Performing Department to Schedule 06/04/2025 07/05/2026 1 1 * Radiology Services (Urgent) - Open Specialty Diagnoses / Procedures Referred By Braulio barber Referred To Contact Radiology Diagnoses History of hepatitis C Procedures US ELASTOGRAPHY CHG US ABDOMINAL REAL TIME W/IMAGE LIMITED ID PRGRMG EVAL NSTIM PLS GEN SYS SLEEP APNEA STUDY Gladis Allen FNP [address] [facility] [address] [place] [address] Phone: tel: fax: [facility] Ultrasound [address] [place] [address] Phone: tel: fax: Referral ID Status Reason Start Date Expiration Date Visits Re quested Visits Authorized [id number] Sharon 06/04/2025 07/05/2026 1 1 Reason for Visit * Reason Comments Establish Care * Eval and Treat (Routine) - Closed Specialty Diagnoses / Procedures Referred By Braulio barber Referred To Contact Gastroenterology Diagnoses Esophageal varices without bleeding, unspecified esophageal varices type Chronic hepatitis C without hepatic coma Chronic active hepatitis (CMS/HCC) Portal hypertension (CMS/HCC) Procedures ID OFFICE/OUTPATIENT ESTABLISHED MOD MDM 30 MIN ID OFFICE/OUTPATIENT NEW MODERATE MDM 45 MINUTES New Request Ewelina Espinosa, SHIRLEY [address] [place] [address] Phone: tel: fax: [facility] [address] [facility] [address] [place] [address] Phone: tel: fax: Referral ID Status Reason Start Date Expiration Date Visits Requested Visits Authorized [id number] Closed Performing Department to Schedule 01/06/2025 01/06/2026 1 1 Encounter Details Date Type Department Care Team (Late st Contact Info) Description 06/04/2025 3:30 PM CDT [facility] [address] [address] Gladis Allen FNP [address] [facility] [address] [place] [address] History of hepatitis C (Primary Dx); Abnormal findings on diagnostic imaging of liver and biliary tract; Abnormal results of liver function studies; Encounter for screening for other viral diseases; Encounter for hepatitis C virus screening test for high risk patient; History of colon polyps; Other cirrhosis of liver (CMS/HCC); H/O colonoscopy with polypectomy Social History Tobacco Use Types Packs/Day Years Used Date Smoking Tobacco: Every Day Cigarettes Alcohol Use Standard Drinks/Week Comments No 0 (1 standard drink = 0.6 oz pur e alcohol) Comments Unknown Sex and Gender Information Value Date Recorded Sex Assigned at Not on file 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 Gender Identity Not on file Sexual Orientation Not on file documented as of this encounter Last Filed Vital Signs Vital Sign Reading Time Taken Comments Blood Pressure 110/62 06/04/2025 3:27 PM CDT Pulse 68 06/04/2025 3:27 PM CDT Temperature - - Respiratory Rate - - Oxygen Saturation - - Inhaled Oxygen Concentration - - Weight 79.8 kg (176 lb) 06/04/2025 3:27 PM CDT Height 160 cm (5' 3 ) 06/04/2025 3:27 PM CDT Body Mass Index 31.18 06/04/2025 3:27 PM CDT documented in this encounter Progress Notes * Gladis Allen FNP - 06/04/2025 3:28 PM CDT GI Clinic Note Bárbara Mayfield [facility] [id number] 06/04/2025 Collaborative physician: Jaswant Mcnally MD Referring Provider: Dae Peacock MD History of Present Illness The patient is a 70-year-old female who presents for a new patient evaluation of hepatic cirrhosis with chronic hepatitis C and esophageal varices. She was seen by GI in the distant past, specifically in 2011. She has been under the care of a provider within [facility], but it was felt that she needs a specialist. She has never been treated for HCV and I do not see any recent lab work within [facility] in the last year for my review. Her last colonoscopy was in 2019 with polyps removed. She has a long-standing history of hepatitis C, diagnosed in approx. per patient, and esophageal varices, which were last identified and treated in 2011 via EGD reportedly. She was informed that she has cirrhosis. She reports no alcohol consumption. She reports no history of IV drug use. Denies jaundice, yellow eyes, abdominal swelling, nausea, confusion, abnormal weight loss, dysphagia, odynophagia, vomiting, hematemesis, hematochezia, or melena. She is seeking relief for generalized itching. She has been prescribed creams by her primary care physician, which have not been effective. SOCIAL HISTORY Marital Status: . Alcohol: No current alcohol consumption. Recreational Drugs: No history of IV drug use or other substance use. Coffee/Tea/Caffeine-containing Drinks: Drinks coffee regularly FAMILY HISTORY - Mother: Esophageal cancer. - Negative for colon cancer and other GI cancer. PAST MEDICAL HISTORY: Past Medical History: Diagnosis Date Asthma Cancer (CMS/HCC) ovarian Chronic hepatic failure (CMS/HCC) hep c COPD (chronic obstructive pulmonary disease) (CMS/HCC) PAST SURGICAL HISTORY: Past Surgical History: Procedure Laterality Date CHG ANES FOREARM/WRIST SURGERY UNLISTED right HX COLON POLYPECTOMY HX HYSTERECTOMY HX OOPHORECTOMY HX TONSILLECTOMY HX TUBAL LIGATION ID ESOPHAGOGASTRODUODENOSCOPY TRANSORAL DIAGNOSTIC 08/24/2011 ESOPHAGOGASTRODUODENOSCOPY performed [facility] ID ESOPHAGOGASTRODUODENOSCOPY TRANSORAL DIAGNOSTIC 06/14/2011 ESOPHAGOGASTRODUODENOSCOPY performed by OLIVIER ALLEN at [facility] ID ESOPHAGOGASTRODUODENOSCOPY TRANSORAL DIAGNOSTIC 10/05/2011 ESOPHAGOGASTRODUODENOSCOPY performed by Olivier Allen MD at [facility]OSCOPY MEDICATIONS: Current Outpatient Medications on File Prior to Visit Medication Sig Dispense Refill sertraline (ZOLOFT) 100 mg tablet Take 100 mg by mouth daily. levocetirizine (XYZAL) 5 mg tablet Take 5 mg by mouth late in the day. ALPRAZolam (XANAX) 0.25 mg tablet Take 0.25 mg by mouth 3 times daily as needed. isosorbide mononitrate (IMDUR) 30 mg Extended Release 24 hour tablet Take 15 mg by mouth daily in the morning. furosemide (LASIX) 20 mg tablet Take 20 mg by mouth daily. triamcinolone acetonide (KENALOG) 0.1 % Cream Apply to affected area 2 times daily. pregabalin (LYRICA) 100 mg Capsule Take 100 mg by mouth every 12 hours. busPIRone (BUSPAR) 5 mg tablet Take 5 mg by mouth 3 times daily. carbidopa-levodopa (SINEMET) 25-100 mg tablet Take 1 Tablet by mouth 3 times daily. hydrOXYzine HCL (ATARAX) 25 mg tablet Take 25 mg by mouth 3 times daily as needed for Itching. potassium CHLORIDE (MICRO-K EXTENCAPS) 10 mEq Extended Release capsule Take 10 mEq by mouth daily. levothyroxine 75 mcg tablet Take 75 mcg by mouth daily in the morning. nitroglycerin (NITROSTAT) 0.4 mg Tablet, Sublingual Place 0.4 mg under tongue every 5 minutes as needed for Chest Pain. albuterol sulfate HFA 90 mcg/actuation aerosol inhaler Take 1 Puff by inhalation one time only. No current facility-administered medications on file prior to visit. ALLERGIES: Allergies Allergen Reactions Codeine Hives and Itching Erythromycin Hives and Itching Penicillins Anaphylaxis Tramadol Hives Iodinated Contrast Media Other (See Comments) palpitations, itching, dyspnea Ferrous Sulfate Itching REVIEW OF SYSTEMS: Complete ROS was negative aside from what was noted above. PHYSICAL EXAM: VITALS: BP 110/62 Pulse 68 Ht 5' 3 (1.6 m) Wt 79.8 kg (176 lb) BMI 31.18 kg/m?? GEN: Bárbara Mayfield is a 70 y.o. female in no acute distress. HEENT: Mucous membranes pink and moist. Sclera anicteric. LUNGS: Clear to auscultation posteriorly. HEART: Regular rate and rhythm. ABD: Soft with normoactive BS. No palpable abnormalities or masses. No organomegaly noted. No appreciable tenderness. No ascites. RECTAL: Not done at this time. EXT: Without cyanosis, deformity or pitting edema. No asterixis. SKIN: [place], warm, dry. No jaundice. Review of data: I have personally reviewed pertinent labs, imaging and GI procedures in [facility] IMPRESSION and PLAN: Bárbara was seen today for establish care. Diagnoses and all orders for this visit: History of hepatitis C - CBC WITH DIFFERENTIAL; Future - COMPREHENSIVE METABOLIC PANEL; Future - ALPHA FETOPROTEIN TUMOR MARKER; Future - PROTIME-INR; Future - US ELASTOGRAPHY; Future - HEPATITIS A IGM; Future - HEPATITIS B CORE AB TOTAL; Future - HEPATITIS B SURFACE AB, QUAL; Future - HEPATITIS B SURFACE ANTIGEN; Future - HEPATITIS C GENOTYPE; Future - HEPATITIS C RNA PCR, QUANTITATIVE; Future - HIV DETECTION W/REFLX CONFIRMATION; Future - ENDOSCOPY, COLON, DIAGNOSTIC; Future - EGD; Future - MITOCHONDRIAL ANTIBODY; Future - CBC WITH DIFFERENTIAL - COMPREHENSIVE METABOLIC PANEL - ALPHA FETOPROTEIN TUMOR MARKER - PROTIME-INR - HEPATITIS A IGM - HEPATITIS B CORE AB TOTAL - HEPATITIS B SURFACE AB, QUAL - HEPATITIS B SURFACE ANTIGEN - HEPATITIS C GENOTYPE - HEPATITIS C RNA PCR, QUANTITATIVE - HIV DETECTION W/REFLX CONFIRMATION - MITOCHONDRIAL ANTIBODY Abnormal findings on diagnostic imaging of liver and biliary tract - ALPHA FETOPROTEIN TUMOR MARKER; Future - ALPHA FETOPROTEIN TUMOR MARKER Abnormal results of liver function studies - PROTIME-INR; Future - PROTIME-INR Encounter for screening for other viral diseases - HEPATITIS B CORE AB TOTAL; Future - HEPATITIS B SURFACE ANTIGEN; Future - HEPATITIS B CORE AB TOTAL - HEPATITIS B SURFACE ANTIGEN Encounter for hepatitis C virus screening test for high risk patient - HEPATITIS B SURFACE AB, QUAL; Future - HEPATITIS B SURFACE AB, QUAL History of colon polyps Other cirrhosis of liver (CMS/HCC) H/O colonoscopy with polypectomy - ENDOSCOPY, COLON, DIAGNOSTIC; Future Assessment & Plan Cirrhosis: The patient has cirrhosis. The likely etiology is HCV. Will order AMA and F actin IGG to rule out autoimmune cause given her pruritus. Counseled regarding strict alcohol abstinence. Esophageal variceal status: Will order EGD for further evaluation. Last one was in 2011 and reportedly revealed varices. Denies nausea, vomiting, melena. Ascites None present. Will monitor for this. Discussed and recommended salt restriction to 2 gm Na daily only. Hepatic Encephalopathy: No evidence of hepatic encephalopathy at present. Coagulopathy: Will assess PT INR. Hepatorenal syndrome: Will assess CMP. Hepatoma screen: Will arrange for US with elastography. Will obtain AFP. Transplant status: Will obtain MELD lab work. HCV status: Regarding chronic hepatitis C, we will get the necessary labs to document genotype, HIV status, andhepatitis B core status as well as labs if needed to assess hepatic synthetic function and portal hypertension. We discussed the need to assess for underlying fibrosis to determine the duration and type of treatment. We discussed the various treatment options are from 8 to 12 weeks and generally greater than 95% cure rate. We discussed and reviewed the potential for medication interactions and that no new medications should be taken during treatment without checking with my office. We discussedthe treatment failures are rare and generally in treatment na??ve patients related to medication non adherence. We also discussed that I would then expect to follow-up 12 weeks after the completion oftherapy and see no viremia at which point we would pronounce a cure if there was no viremia 12 weeks after therapy. We discussed that sometimes insurance approval take some time because the medications are expensive and many times the treatment choices are dictated by insurance, however all the treatments are very effective in cirrhotic and noncirrhotics alike. CRC Screening: Last colonoscopy was in 2019 and reportedly revealed polyps, will arrange for colonoscopy with EGD. Follow up in 6 months. Discussed alarm signs and symptoms that would indicate need for sooner follow up, such as new onsetor worsening dysphagia, evidence of bloody vomit or stool, weight loss, or changes in bowel habits. The patient indicates understanding of these issues and agrees with the plan. Plan of care discussed and developed in collaboration with Jaswant Mcnally MD Salvatrice Fetty, FNP This note has been partially dictated using voice recognition software. Every effort has been made to ensure accuracy. Patient provided verbal consent for the use of ROBERT [employer] to assist in documentation of today's visit. documented in this encounter Miscellaneous Notes * Patient Instructions - Gladis Allen FNP - 06/04/2025 3:40 PM CDT Cirrhosis: After Your Visit Your Care Instructions Cirrhosis occurs when healthy liver tissue becomes scarred. This keeps the liver from working well.Cirrhosis usually happens after years of liver inflammation. It is the result of any chronic liver disease. Sometimes no reason for the cirrhosis can be found. Treatment cannot completely fix liver damage, but you may be able to slow or prevent more liver damage if you do not drink alcohol or use drugs that harm your liver. Follow-up care is a navarro part of your treatment and safety. Be sure to make and go to all appointments, and call your doctor if you are having problems. It???s also a good idea to know your test results and keep a list of the medicines you take. How can you care for yourself at home? Do not drink any alcohol. It can harm your liver. Talk to your doctor if you need help to stop drinking. Take your medicines exactly as prescribed. Call your doctor if you think you are having a problem with your medicine. Do not take any other medicines, including qzte-cov-urazjbs medicines and herbal products, without talking to your doctor first. Be careful taking acetaminophen (Tylenol), ibuprofen (Advil, Motrin), or naproxen (Aleve). These can sometimes cause more liver damage. Talk with your doctor if you are not sure whether these medicines are safe for you to take. Eat a low-salt diet if your cirrhosis is causing fluid buildup in your body. Use less salt when youcook and at the table. Do not eat fast foods or snack foods with a lot of salt. Fluid buildup in your belly, legs, and chest can cause serious problems. Avoid excessive sugary foods and drinks. When should you call for help? Call 911 anytime you think you may need emergency care. For example, call if: You vomit blood or what looks like coffee grounds. You pass maroon or very bloody stools. You passed out (lost consciousness). You feel very confused and disoriented. This is a sign of brain problems from severe liver damage. You have severe trouble breathing. Call your doctor now or seek immediate medical care if: You have mental changes, such as sleepiness, confusion, moodiness, or a poor memory. You have new belly pain or swelling. You have many nosebleeds or are bleeding from the gums or rectum. You have a fever. Your stools are black and tarlike or have streaks of blood. Watch closely for changes in your health, and be sure to contact your doctor if: Your skin or the whites of your eyes turn yellow, or they are more yellow than they were before. You cannot control itching. documented in this encounter Plan of Treatment Upcoming Encounters Date Type Department Care Team (Late st Contact Info) Description 12/03/2025 2:00 PM CDT Office Visit [facility]- [place] [id number] [address] Gladis Allen FNP [address] [facility] [address] [place] [address] Pending Results Name Type Priority Associated Diagnoses Date /Time ALPHA FETOPROTEIN TUMOR MARKER Lab Routine History of hepatitis C Abnormal findings on diagnostic imaging of liver and biliary tract 06/04/2025 4:07 PM CDT HEPATITIS C GENOTYPE Lab Routine History of hepatitis C 06/04/2025 4:07 PM CDT MITOCHONDRIAL ANTIBODY Lab Routine History of hepatitis C 06/04/2025 4:07 PM CDT Scheduled Orders Name Type Priority Associated Diagnoses Orde r Schedule ALPHA FETOPROTEIN TUMOR MARKER Lab Routine History of hepatitis C Abnormal findings on diagnostic imaging of liver and biliary tract Expected: 06/04/2025, Expires: 06/04/2026 US ELASTOGRAPHY Imaging Stat History of hepatitis C Expected: 06/04/2025, Expires: 06/04/2026 HEPATITIS C GENOTYPE Lab Routine History of hepatitis C Expected: 06/04/2025 (Approximate), Expires: 06/04/2026 ENDOSCOPY, COLON, DIAGNOSTIC GI Routine History of hepatitis C H/O colonoscopy with polypectomy Expected: 06/04/2025 (Approximate), Expires: 06/04/2026 EGD GI Routine History of hepatitis C Expected: 06/04/2025 (Approximate), Expires: 06/04/2026 MITOCHONDRIAL ANTIBODY Lab Routine History of hepatitis C Expected: 06/04/2025 (Approximate), Expires: 10/02/2025 documented as of this encounter Procedures Procedure Name Priority Date/Time Associated Diagnosis Comments HIV DETECTION W/REFLX CONFIRMATION Routine 06/04/2025 4:06 PM CDT History of hepatitis C HEPATITIS B CORE AB TOTAL Routine 06/04/2025 4:06 PM CDT History of hepatitis C Encounter for screening for other viral diseases HEPATITIS B SURFACE AB, QUAL Routine 06/04/2025 4:06 PM CDT History of hepatitis C Encounter for hepatitis C virus screening test for high risk patient HEPATITIS C RNA PCR, QUANTITATIVE Routine 06/04/2025 4:06 PM CDT History of hepatitis C HEPATITIS B SURFACE ANTIGEN Routine 06/04/2025 4:06 PM CDT History of hepatitis C Encounter for screening for other viral diseases HEPATITIS A IGM Routine 06/04/2025 4:06 PM CDT History of hepatitis C CBC WITH DIFFERENTIAL Routine 06/04/2025 4:06 PM CDT History of hepatitis C PROTIME-INR Routine 06/04/2025 4:06 PM CDT History of hepatitis C Abnormal results of liver function studies COMPREHENSIVE METABOLIC PANEL Routine 06/04/2025 4:06 PM CDT History of hepatitis C documented in this encounter Results * HIV DETECTION W/REFLX CONFIRMATION (06/04/2025 4:06 PM CDT) [facility] RESULT HIV NEGATIVE [facility] [place] Comment: [facility] component Name and Code: HIV FINAL INTERPRETATION [[id number]] HIV-1 antigen and HIV-1/HIV-2 antibodies were not detected. There is no laboratory evidence of HIV infection. HIV-1/2 AG AND AB SCREEN NON-REACTIVE NON-REACT ERIC [facility] [place] Comment: Test [facility]: [facility] [address] [facility] [place] [address] Jane Rizvi MD Blood 06/04/2025 4:06 PM CDT 06/04/2025 4:07 PM CDT [facility] [employer] NURSING SUPPORT WORKER CHEMISTRY ORDERABLES Final Result Performing Organization Address City/[facility]/ZIP Co de Phone Number [facility] [phone] [place] [id number] [facility] [place] [address] * (ABNORMAL) HEPATITIS C RNA PCR, QUANTITATIVE (06/04/2025 4:06 PM CDT) [facility] HCV RNA, QUANT REAL TIME PCR [id number](H) IU/mL [facility]N [employer] [facility], HCV RNA QUANT PCR COPIES IU/ML 6.69(H) Log IU/mL [facility] [employer] [facility], Comment: REFERENCE RANGE: NOT DETECTED IU/mL NOT DETECTED Log IU/mL For additional information, please refer to http://education.Bridgestream/faq/UWN35h3 (This link is being provided for informational/ educational purposes only.) FASTING:NO FASTING: NO Test Performed at: [facility] [facility], [address] [place] [address] Wendy Taylor MD,PhD,CARINA Blood 06/04/2025 4:06 PM CDT 06/04/2025 4:07 PM CDT [facility] [employer] NURSING SUPPORT WORKER CHEMISTRY ORDERABLES Final Result [facility] [phone] [facility], [address] [place] [address] * HEPATITIS B SURFACE ANTIGEN (06/04/2025 4:06 PM CDT) HEPATITIS B SURFACE AG NON-REACTI VE NON-REACTI VE [facility] Comment: For additional information, please refer to http://education.Bridgestream/faq/ZYN164 (This link is being provided for informational/ educational purposes only.) Test Performed at: [facility] [address] [facility] [place] [address] Jane Rizvi MD Blood 06/04/2025 4:06 PM CDT 06/04/2025 4:07 PM CDT [employer] NURSING SUPPORT WORKER CHEMISTRY ORDERABLES Final Result Performing Organization Address City/[facility]/ZIP Co de Phone Number [facility] [phone] [facility] [address] [place] [address] * HEPATITIS B SURFACE AB, QUAL (06/04/2025 4:06 PM CDT) Pathologist [facility] HEPATITIS B SURFACE AB, QUAL NON-REACTI VE NON-REACTI VE [facility] Comment: FASTING:NO FASTING: NO Test Performed at: [facility] [address] [facility] [place] [address] Jane Rizvi MD Blood 06/04/2025 4:06 PM CDT 06/04/2025 4:07 PM CDT [employer] NURSING SUPPORT WORKER CHEMISTRY ORDERABLES Final Result [facility] [phone] [facility] [address] [place] [address] * HEPATITIS B CORE AB TOTAL (06/04/2025 4:06 PM CDT) [facility] HEPATITIS B CORE AB NON-REACTI VE NON-REACTI VE [facility] Comment: For additional information, please refer to http://Play It Interactive.Bridgestream/faq/QJD140 (This link is being provided for informational/ educational purposes only.) FASTING:NO FASTING: NO Test Performed at: [facility] [address] Jane Rizvi MD Blood 06/04/2025 4:06 PM CDT 06/04/2025 4:07 PM CDT [facility] [employer] CHEMISTRY ORDERABLES Final Result Performing Organization Address [facility] de Phone Number [facility] [phone] [facility] [employer] [address] * HEPATITIS A IGM (06/04/2025 4:06 PM CDT) [facility] HEPATITIS A IGM NON-REACTI VE NON-REACTI VE [facility] Comment: For additional information, please refer to http://Play It Interactive.Bridgestream/faq/WKS961 (This link is being provided for informational/ educational purposes only.) FASTING:NO FASTING: NO Test Performed at: [facility] [address] Jane Rizvi MD Blood 06/04/2025 4:06 PM CDT 06/04/2025 4:07 PM CDT [facility] CHEMISTRY ORDERABLES Final Result Performing Organization Address [place] Hospital/[facility] Co de Phone Number [facility] [phone] [facility] [employer] [address] * (ABNORMAL) PROTIME-INR (06/04/2025 4:06 PM CDT) [facility] INR 1.2(H) [facility] RR Comment: Reference Range 0.9-1.1 Moderate-intensity Warfarin Therapy 2.0-3.0 Higher-intensity Warfarin Therapy 3.0-4.0 PROTIME 12.1(H) 9.0 - 11.5 sec [facility] RRL Comment: For additional information, please refer to http://education.Bridgestream/faq/PEF601 (This link is being provided for informational/ educational purposes only.) FASTING:NO FASTING: NO Test Performed at: [facility] [address] [place] [address] Mukesh Stacy Blood 06/04/2025 4:06 PM CDT 06/04/2025 4:07 PM CDT Gladis Herrera NURSING SUPPORT WORKER HEMATOLOGY ORDERABLES Final Result [facility] [phone] [facility] [address] [place] [address] * (ABNORMAL) COMPREHENSIVE METABOLIC PANEL (06/04/2025 4:06 PM CDT) [facility] GLUCOSE 94 65 - 139 mg/dL [facility] RR Comment: Non-fasting reference interval BUN 12 7 - 25 mg/dL [facility] RR CREATININE 0.76 0.60 - 1.00 mg/dL [facility] RR GFR 83 > OR = 60 mL/min/1. 73m2 [facility] RR BUN/CREAT RATIO SEE NOTE: 6 - 22 (calc) [facility] RRL Comment: Not Reported: BUN and Creatinine are within reference range. SODIUM 137 135 - 146 mmol/L [facility] RRL POTASSIUM 3.7 3.5 - 5.3 mmol/L [facility] RRL CHLORIDE 104 98 - 110 mmol/L [facility] RRL CO2 30 20 - 32 mmol/L [facility] RRL CALCIUM 8.9 8.6 - 10.4 mg/dL [facility] RRL TOTAL PROTEIN 7.8 6.1 - 8.1 g/dL [facility] ALBUMIN 4.1 3.6 - 5.1 g/dL [facility] GLOBULIN 3.7 1.9 - 3.7 g/dL (calc) [facility] RRL ALBUMIN/GLOBULIN RATIO 1.1 1.0 - 2.5 (calc) [facility] BILIRUBIN TOTAL 1.3(H) 0.2 - 1.2 mg/dL [facility] ALKALINE PHOSPHATASE 87 37 - 153 U/L [facility] RRL AST 41(H) 10 - 35 U/L [facility] RRL ALT 14 6 - 29 U/L [facility] RRL Comment: Test Performed at: [facility] [address] [place] [address] Mukesh Stacy Blood 06/04/2025 4:06 PM CDT 06/04/2025 4:07 PM CDT Gladis Allen [facility] CHEMISTRY ORDERABLES Final Result Performing Organization Address City/State/[facility] Co de Phone Number [facility] [phone] [facility] [address] [place] [address] * (ABNORMAL) CBC WITH DIFFERENTIAL (06/04/2025 4:06 PM CDT) WBC 8.0 3.8 - 10.8 Thousand/u L [facility] RRL RBC 4.46 3.80 - 5.10 Million/uL [facility] HEMOGLOBIN 13.8 11.7 - 15.5 g/dL [facility] RR HEMATOCRIT 41.4 35.0 - 45.0 % [facility] MCV 92.8 80.0 - 100.0 fL [facility] MCH 30.9 27.0 - 33.0 pg [facility] [place] RRL MCHC 33.3 32.0 - 36.0 g/dL [facility] Comment: For adults, a slight decrease in the calculated MCHC value (in the range of 30 to 32 g/dL) is most likely not clinically significant; however, it should be interpreted with caution in correlation with other red cell parameters and the patient's clinical condition. RDW 14.2 11.0 - 15.0 % [facility] PLATELETS 52(L) 140 - 400 Thousand/u L [facility] RR Comment: Verified by repeat analysis. MPV 11.4 7.5 - 12.5 fL [facility] RR NEUTROPHIL ABSOLUTE 6,768 1,500 - 7,800 cells/uL [facility] RR LYMPHOCYTE ABSOLUTE 400(L) 850 - 3,900 cells/uL [facility] RRL MONOCYTE ABSOLUTE 696 200 - 950 cells/uL [facility] RR EOSINOPHIL ABSOLUTE 88 15 - 500 cells/uL [facility] RR BASOPHILS ABSOLUTE 48 0 - 200 cells/uL [facility] RRL NEUTROPHIL 84.6 % [facility] LYMPHOCYTES 5.0 % [facility] MONOCYTE 8.7 % [facility] EOSINOPHILS 1.1 % [facility] R[facility] BASOPHILS 0.6 % [facility] COMMENT HEMATOLOGY [facility] RR Comment: Red cell morphology appears unremarkable Review of the peripheral smear reveals decreased numbers of platelets. Slide review performed at: [facility] [address] [place] [address] Cycle Liaison: Irvin Kohli [id number] FASTING:NO FASTING: NO Test Performed at: [facility] [address] [place] [address] Mukesh Stacy Blood 06/04/2025 4:06 PM CDT 06/04/2025 4:07 PM CDT Gladis Allen NURSING SUPPORT WORKER HEMATOLOGY ORDERABLES Final Result [facility] [phone] [facility] [address] [place] [address] documented in this encounter Visit Diagnoses Diagnosis History of hepatitis C- Primary Personal history of other infectious and parasitic disease Abnormal findings on diagnostic imaging of liver and biliary tract Abnormal results of liver function studies Nonspecific abnormal results of liver function study Encounter for screening for other viral diseases Encounter for hepatitis C virus screening test for high risk patient History of colon polyps Personal history of colonic polyps Other cirrhosis of liver H/O colonoscopy with polypectomy Other postprocedural status documented in this encounter Care Teams Help Aid Relationship Specialty Start Date End Date Dae Peacock MD [facility] [address] [place] [address] PCP - General Family Practice 06/12/11 documented as of this encounter
--- OUTSIDE RECORDS SUMMARY | 2025-06-04 15:30 | XMS_ITS | Encounter Summary ---
Author Organization [facility] Address [address] [place] [address] Care Team Providers Care Ccnp Name Role Phone Dae Peacock MD Primary Care Provider [phone] Reason for Referral * Outpatient Surgery (Routine) - Open Specialty Diagnoses / Procedures Referred By Contact Referred To Contact Gastroenterology Diagnoses History of hepatitis C Procedures EGD VA ESOPHAGOGASTRODUODENOSCOPY TRANSORAL DIAGNOSTIC VA EGD TRANSORAL BIOPSY SINGLE/MULTIPLE VA EGD BALLOON DILATION ESOPHAGUS <30 MM DIAM VA DILATION ESOPH UNGUIDED SOUND/BOUGIE 1/MULT PASS Uli Gladis Allen FNP [address] [address] Phone: tel:[phone] fax:[phone] [facility] G[facility]enterology - [place] [address] [address] Phone: tel:[phone] fax:[phone] Referral ID Status Reason Start Date Expiration Date Visits Requested Visits Authorized [id number] Open Performing Department to Schedule 06/04/2025 07/05/2026 1 1 * Outpatient Surgery (Routine) - Open Specialty Diagnoses / Procedures Referred By Contdonald t Referred To Contact Gastroenterology Diagnoses History of hepatitis C H/O colonoscopy with polypectomy Procedures ENDOSCOPY, COLON, DIAGNOSTIC VA COLONOSCOPY FLX DX W/COLLJ SPEC WHEN PFRMD VA COLONOSCOPY W/BIOPSY SINGLE/MULTIPLE VA COLSC FLX WITH DIRECTED SUBMUCOSAL NJX ANY SBST VA COLSC FLX W/RMVL OF TUMOR POLYP LESION SNARE TQ Uli Gladis Allen FNP [address] [facility] [address] [place] [address] Phone: tel: fax: [facility] Gastroenterology- [place] [address] [place] [address] Phone: tel: fax: Referral ID Status Reason Start Date Expiration Date Visits Requested Visits Authorized [id number] Open Performing Department to Schedule 06/04/2025 07/05/2026 1 1 * Radiology Services (Urgent) - Open Specialty Diagnoses / Procedures Referred By Braulio barber Referred To Contact Radiology Diagnoses History of hepatitis C Procedures US ELASTOGRAPHY CHG US ABDOMINAL REAL TIME W/IMAGE LIMITED VA PRGRMG EVAL NSTIM PLS GEN SYS SLEEP APNEA STUDY Gladis Allen FNP [address] [address] Phone: tel: fax: [facility] Ultrasound [address] [place] [address] Phone: tel: fax: Referral ID Status Reason Start Date Expiration Date Visits Re quested Visits Authorized [id number] Sharon 06/04/2025 07/05/2026 1 1 Reason for Visit * Reason Comments Establish Care * Eval and Treat (Routine) - Closed Specialty Diagnoses / Procedures Referred By Braulio barber Referred To Contact Gastroenterology Diagnoses Esophageal varices without bleeding, unspecified esophageal varices type Chronic hepatitis C without hepatic coma Chronic active hepatitis (CMS/HCC) Portal hypertension (CMS/HCC) Procedures VA OFFICE/OUTPATIENT ESTABLISHED MOD MDM 30 MIN VA OFFICE/OUTPATIENT NEW MODERATE MDM 45 MINUTES New Request Ewelina Espinosa, SHIRLEY [address] [place] [address] Phone: tel: fax: [facility] 2[address] [facility] [address] [place] [address] Phone: tel: fax: Referral ID Status Reason Start Date Expiration Date Visits Requested Visits Authorized [id number] Closed Performing Department to Schedule 01/06/2025 01/06/2026 1 1 Encounter Details Date Type Department Care Team (Late st Contact Info) Description 06/04/2025 3:30 PM CDT [facility] 5 [facility] [address] [place] [address] Gladis Allen FNP 2115 [facility] [address] [place] [address] History of hepatitis C (Primary Dx); [...] on file 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 [id number] 06/04/2025 Collaborative physician: Jaswant Mcnally MD Referring Provider: Dae Peacock MD History of Present Illness The patient is a 70-year-old female who presents for a new patient evaluation of hepatic cirrhosis with chronic hepatitis C and esophageal varices. She was seen by GI in the distant past, specifically in 2011. She has been under the care of a provider within [facility], but it was felt that she needs a specialist. She has never been treated for HCV and I do not see any recent lab work within [facility] in the last year for my review. [...] HX OOPHORECTOMY HX TONSILLECTOMY HX TUBAL LIGATION VA ESOPHAGOGASTRODUODENOSCOPY TRANSORAL DIAGNOSTIC 08/24/2011 ESOPHAGOGASTRODUODENOSCOPY performed by Olivier Allen MD at [facility] OR ENDOSCOPY VA ESOPHAGOGASTRODUODENOSCOPY TRANSORAL DIAGNOSTIC 06/14/2011 ESOPHAGOGASTRODUODENOSCOPY performed by OLIVIER ALLEN at [facility] ENDOSCOPY VA ESOPHAGOGASTRODUODENOSCOPY TRANSORAL DIAGNOSTIC 10/05/2011 ESOPHAGOGASTRODUODENOSCOPY performed by Olivier Allen MD at [facility] OR ENDOSCOPY MEDICATIONS: Current Outpatient Medications [...] deformity or pitting edema. No asterixis. SKIN: Hiko, warm, dry. No jaundice. Review of data: I have personally reviewed pertinent labs, imaging and GI procedures in [facility] IMPRESSION and PLAN: Bárbara was seen today [...] treatment without checking with my office. We discussed the treatment failures are rare and generally in treatment na??ve patients related to medication no nadherence. We also discussed that I would then expect to follow-up 12 weeks after the completion of therapy and see no viremia at which point [...] Do not take any other medicines, including [id number] medicines and herbal products, without talking to [...] Description 12/03/2025 2:00 PM CDT Office Visit [facility] Gastroenterology- [place] [address] [facility] [address] [place] [phone] Gladis Allen FNP [address] [facility] [address] [place] [address] Scheduled Orders Name Type Priority Associated Diagnoses Orde r Schedule US ELASTOGRAPHY Imaging Stat History of hepatitis C Expected: 06/04/2025, Expires: 06/04/2026 ENDOSCOPY, COLON, DIAGNOSTIC GI Routine History of hepatitis C H/O colonoscopy with polypectomy Expected: 06/04/2025 (Approximate), Expires: 06/04/2026 EGD GI Routine History of hepatitis C Expected: 06/04/2025 (Approximate), Expires: 06/04/2026 documented as of this encounter Procedures Procedure [...] Encounter for screening for other viral diseases MITOCHONDRIAL ANTIBODY Routine 4:06 PM CDT History of hepatitis C HEPATITIS C GENOTYPE Routine 06/04/2025 4:06 PM CDT History of hepatitis C HEPATITIS A IGM Routine 06/04/2025 4:06 PM CDT History of hepatitis C ALPHA FETOPROTEIN TUMOR MARKER Routine 06/04/2025 4:06 PM CDT History of hepatitis C Abnormal findings on diagnostic imaging of liver and biliary tract CBC WITH DIFFERENTIAL Routine 06/04/2025 4:06 PM CDT History of hepatitis C PROTIME-INR Routine 06/04/2025 4:06 PM CDT History of hepatitis C Abnormal results of liver function studies COMPREHENSIVE METABOLIC PANEL Routine 06/04/2025 4:06 PM CDT History of hepatitis C documented in this encounter Results * MITOCHONDRIAL ANTIBODY (06/04/2025 4:06 PM CDT) MITOCHONDRIAL AB <20.[address] [facility]/N [facility], Comment: Reference Range: NEGATIVE: < OR = 20.0 EQUIVOCAL: 20.1-24.9 POSITIVE: > OR = 25.0 FASTING:NO FASTING: NO Test Performed at: [facility], [address] [place] [address] Wendy Taylor MD,PhD,CARINA Blood 06/04/2025 4:06 PM CDT 06/04/2025 4:07 PM CDT Gladis Herreraty ELECTRIC POWERLINE EXAMINER CHEMISTRY ORDERABLES Final Result Performing Organization Address [facility] Co de Phone Number [facility] [phone] [facility], [address] [place] [address] * HIV DETECTION W/REFLX CONFIRMATION (06/04/2025 4:06 PM CDT) Pathologist [facility] QUEST RESULT HIV NEGATIVE [facility] [employer] [place] Comment: [facility] component Name and Code: HIV FINAL INTERPRETATION [[id number]] HIV-1 antigen and HIV-1/HIV-2 antibodies were not detected. There is no laboratory evidence of HIV infection. HIV-1/2 AG AND AB SCREEN NON-REACTIVE NON-REACT ERIC [facility] [place] Comment: Test Performed at: [employer] [facility] [address] [employer] [address] Jane Rizvi MD Blood 06/04/2025 4:06 PM CDT 06/04/2025 4:07 PM CDT Salvatrice Shayne [employer] ELECTRIC POWERLINE EXAMINER CHEMISTRY ORDERABLES Final Result Performing Organization Address [facility] [[email or web address]] de Phone Number [facility] [phone] [facility] [address] [employer] [address] * (ABNORMAL) HEPATITIS C RNA PCR, QUANTITATIVE (06/04/2025 4:06 PM CDT) [facility] HCV RNA, QUANT REAL TIME PCR 9282303(H) IU/mL [facility]/N [facility], HCV RNA QUANT PCR COPIES IU/ML 6.69(H) Log IU/mL [facility]/N [facility], Comment: REFERENCE RANGE: NOT DETECTED IU/mL NOT DETECTED Log IU/mL For additional information, please refer to http://KitNipBox.Vector City Racers/faq/SZO00g6 (This link is being provided for informational/ educational purposes only.) FASTING:NO FASTING: NO Test Performed at: [facility], [address] [place] [phone] Wendy Taylor MD,PhD,CARINA Blood 06/04/2025 4:06 PM CDT 06/04/2025 4:07 PM CDT us Salvatrice Fetty ELECTRIC POWERLINE EXAMINER CHEMISTRY ORDERABLES Final Result [facility] [phone] [facility], [address] [place] [address] * HEPATITIS C GENOTYPE (06/04/2025 4:06 PM CDT) HEPATITIS C GENOTYPE 1a [facility], Comment: REFERENCE RANGE: NOT DETECTED The methods used in this test are RT-PCR and DNA Sequencing of the 5' UTR and core region of the HCV genome. For additional information, please refer to http://KitNipBox.Lexity/faq/HCVGenotyping (This link is being provided for informational/ educational purposes only.) This test was developed and its analytical performance characteristics have been determined by [facility]. It has not been cleared or approved by the FDA. This assay has been validated pursuant to the CLIA regulations and is used for clinical purposes. FASTING:NO FASTING: NO Test Performed at: [facility], [address] [place] [phone] Wendy Taylor MD,PhD,CARINA Blood 06/04/2025 4:06 PM CDT 06/04/2025 4:07 PM CDT us Salvatrice Fetty ELECTRIC POWERLINE EXAMINER CHEMISTRY ORDERABLES Final Result [facility] [phone] [facility], [address] [place] [address] * HEPATITIS B SURFACE ANTIGEN (06/04/2025 4:06 PM CDT) HEPATITIS B SURFACE AG NON-REACTI VE NON-REACTI VE [facility] Comment: For additional information, please refer to http://education.Vector City Racers/faq/LKH625 (This link is being provided for informational/ educational purposes only.) Test Performed at: [employer] [facility] [place] [address] Jane Rizvi MD Blood 06/04/2025 4:06 PM CDT 06/04/2025 4:07 PM CDT us Salvatrice Fetty ELECTRIC POWERLINE EXAMINER CHEMISTRY ORDERABLES Final Result Performing Organization Address [facility] Co de Phone Number [facility] [phone] [facility] [address] [place] [address] * HEPATITIS B SURFACE AB, QUAL (06/04/2025 4:06 PM CDT) HEPATITIS B SURFACE AB, QUAL NON-REACTI VE NON-REACTI VE [facility] Comment: FASTING:NO FASTING: NO Test Performed at: [employer] [address] [place] [address] Jane Rizvi MD Blood 06/04/2025 4:06 PM CDT 06/04/2025 4:07 PM CDT us Salvatrice Fetty ELECTRIC POWERLINE EXAMINER CHEMISTRY ORDERABLES Final Result Performing Organization Address City/[facility]/ZIP Co de Phone Number [facility] [phone] [facility] [address] * HEPATITIS B CORE AB TOTAL (06/04/2025 4:06 PM CDT) HEPATITIS B CORE AB NON-REACTI VE NON-REACTI VE [facility] Comment: For additional information, please refer to http://KitNipBox.Vector [employer] Racers/faq/PFV030 (This link is being provided for informational/ educational purposes only.) FASTING:NO FASTING: NO Test Performed at: [facility] [address] Jane Rizvi MD Blood 06/04/2025 4:06 PM CDT 06/04/2025 4:07 PM CDT Salvatrice Fetty ELECTRIC POWERLINE EXAMINER CHEMISTRY ORDERABLES Final Result Performing Organization Address [facility] [[email or web address]] de Phone Number [facility] [phone] [facility] [employer] [address] * HEPATITIS A IGM (06/04/2025 4:06 PM CDT) Pathologist [facility] HEPATITIS A IGM NON-REACTI VE NON-REACTI VE [facility] Comment: For additional information, please refer to http://Wonolo/faq/GNT153 (This link is being provided for informational/ educational purposes only.) FASTING:NO FASTING: NO Test Performed at: [facility] [place] [address] Jane Rizvi MD Blood 06/04/2025 4:06 PM CDT 06/04/2025 4:07 PM CDT Salvatrice Fetty ELECTRIC POWERLINE EXAMINER CHEMISTRY ORDERABLES Final Result Performing Organization Address [facility] Co de Phone Number [facility] [phone] [facility] [employer] [address] * (ABNORMAL) PROTIME-INR (06/04/2025 4:06 PM CDT) Pathologist [facility] INR 1.2(H) [facility] Comment: Reference Range 0.9-1.1 Moderate-intensity Warfarin Therapy 2.0-3.0 Higher-intensity Warfarin Therapy 3.0-4.0 PROTIME 12.1(H) 9.0 - 11.5 sec [facility] Comment: For additional information, please refer to http://education.Vector City Racers/faq/VCC317 (This link is being provided for informational/ educational purposes only.) FASTING:NO FASTING: NO Test Performed at: [facility] [address] [place] [address] Mukesh Stacy Blood 06/04/2025 4:06 PM CDT 06/04/2025 4:07 PM CDT [facility] Fetty ELECTRIC POWERLINE EXAMINER HEMATOLOGY ORDERABLES Final Result [facility] [phone] [facility] [address] [place] [address] * (ABNORMAL) ALPHA FETOPROTEIN TUMOR MARKER (06/04/2025 4:06 PM CDT) [facility] ALPHA FETOPROTEIN TUMOR MARKER 6.9(H) ng/mL [facility] mandy Dawn Comment: Reference Range: <6.1 The use of AFP as a tumor marker in females is not recommended. This test was performed using the Lupe [place] chemiluminescent method. Values obtained from different assay methods cannot be used interchangeably. AFP levels, regardless of value, should not be interpreted as absolute evidence of the presence or absence of disease. FASTING:NO FASTING: NO Test Performed at: [facility] [address] [place] [address] Myke Martinez Blood 06/04/2025 4:06 PM CDT 06/04/2025 4:07 PM CDT Gladis Allen ELECTRIC POWERLINE EXAMINER CHEMISTRY ORDERABLES Final Result [facility] [phone] [facility] [address] [place] [address] * (ABNORMAL) COMPREHENSIVE METABOLIC PANEL (06/04/2025 4:06 PM CDT) GLUCOSE 94 65 - 139 mg/dL [facility] Comment: Non-fasting reference interval BUN 12 7 - 25 mg/dL [facility] CREATININE 0.76 0.60 - 1.00 mg/dL [facility] RR GFR 83 > OR = 60 mL/min/1. 73m2 [facility] RR BUN/CREAT RATIO SEE NOTE: 6 - 22 (calc) [facility] [employer] [facility]-S [facility] RRL Comment: Not Reported: BUN and Creatinine are within reference range. SODIUM 137 135 - 146 mmol/L [facility] POTASSIUM 3.7 3.5 - 5.3 mmol/L [facility] CHLORIDE 104 98 - 110 mmol/L [facility] CO2 30 20 - 32 mmol/L [facility] CALCIUM 8.9 8.6 - 10.4 mg/dL [facility] R[facility] TOTAL PROTEIN 7.8 6.1 - 8.1 g/dL [facility] R[facility] ALBUMIN 4.1 3.6 - 5.1 g/dL [facility] GLOBULIN 3.7 1.9 - 3.7 g/dL (calc) [facility]-S [facility] RRL ALBUMIN/GLOBULIN RATIO 1.1 1.0 - 2.5 (calc) [facility]-S [facility] RRL BILIRUBIN TOTAL 1.3(H) 0.2 - 1.2 mg/dL [facility]-S [facility] RRL ALKALINE PHOSPHATASE 87 37 - 153 U/L [facility] RRL AST 41(H) 10 - 35 U/L [facility] RRL ALT 14 6 - 29 U/L [facility]-S [facility] RRL Comment: Test Performed at: [facility] RR [address] [place] [address] Mukesh Stacy Blood 06/04/2025 4:06 PM CDT 06/04/2025 4:07 PM CDT Gladis Allen ELECTRIC POWERLINE EXAMINER CHEMISTRY ORDERABLES Final Result [facility] [phone] [facility] [address] [place] [address] * (ABNORMAL) CBC WITH DIFFERENTIAL (06/04/2025 4:06 PM CDT) WBC 8.0 3.8 - 10.8 Thousand/u L [facility]-S [facility] RRL RBC 4.46 3.80 - 5.10 Million/uL [facility] HEMOGLOBIN 13.8 11.7 - 15.5 g/dL [facility] HEMATOCRIT 41.4 35.0 - 45.0 % [facility] MCV 92.8 80.0 - 100.0 fL [facility] MCH 30.9 27.0 - 33.0 pg [facility] [facility] MCHC 33.3 32.0 - 36.0 g/dL [facility] Comment: For adults, a slight decrease in the calculated MCHC value (in the range of 30 to 32 g/dL) is most likely not clinically significant; however, it should be interpreted with caution in correlation with other red cell parameters and the patient's clinical condition. RDW 14.2 11.0 - 15.0 % [facility] [facility] PLATELETS 52(L) 140 - 400 Thousand/u L [facility] [place] [facility] Comment: Verified by repeat analysis. MPV 11.4 7.5 - 12.5 fL [facility] [facility] NEUTROPHIL ABSOLUTE 6,768 1,500 - 7,800 cells/uL [facility] [place] [facility] LYMPHOCYTE ABSOLUTE 400(L) 850 - 3,900 cells/uL [facility] [place] [facility] MONOCYTE ABSOLUTE 696 200 - 950 cells/uL [facility] [place] [facility] EOSINOPHIL ABSOLUTE 88 15 - 500 cells/uL [facility] [place] [facility] BASOPHILS ABSOLUTE 48 0 - 200 cells/uL [facility] [place] [facility] NEUTROPHIL 84.6 % [facility] [place] [facility] LYMPHOCYTES 5.0 % [facility] [place] [facility] MONOCYTE 8.7 % [facility] [place] [facility] EOSINOPHILS 1.1 % [facility] [place] [facility] BASOPHILS 0.6 % [facility] [place] [facility] COMMENT HEMATOLOGY [facility] [place] [facility] Comment: Red cell morphology appears unremarkable Review of the peripheral smear reveals decreased numbers of platelets. Slide review performed at: [facility] [place] [address] [place] [address] Product Inspection Supervisor: Irvin Kohli [id number] FASTING:NO FASTING: NO Test Performed at: [facility] [address] [place] [address] Mukesh Stacy Blood 06/04/2025 4:06 PM CDT 06/04/2025 4:07 PM CDT Gladis Allen ELECTRIC POWERLINE EXAMINER HEMATOLOGY ORDERABLES Final Result [facility] [phone] [facility] [address] [place] [address] documented in this encounter Visit Diagnoses Diagnosis [...] status documented in this encounter Care Teams Ccnp Relationship Specialty Start Date End Date Dae Peacock MD [facility] [address] [place] [address] PCP - General Family Practice 06/12/11 documented as of this encounter
[2025-06-07] VITALS (11 sets, daily range): BP systolic 92–115; BP diastolic 52–80; PULSE 59–140; RESP 16–17; TEMP 36.7–36.8; O2SAT 91–100; BMI 30.8
--- OUTSIDE RECORDS SUMMARY | 2025-06-07 11:28 | XMS_ITS | Encounter Summary ---
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) Procedures MRI ABDOMEN PELVIS W WO CONT Olivier Allen MD [address] [place] [address] Phone: tel: Referral ID Status Reason Start Date Expiration Date Visits Re quested Visits Authorized [id number] Closed 06/07/2011 06/06/2012 1 1 Encounter Details Date Type Department Care Team (Late st Contact Info) Description 06/07/2011 Ancillary Orders [facility] Gastroenterology- Dewy Rose [address] [facility] [address] [place] [address] Olivier Allen MD [address] [place] [address] 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) Social History Tobacco Use Types Packs/Day Years Used Date Smoking Tobacco: Every Day Cigarettes Alcohol Use Standard Drinks/Week Comments Not Asked 0 (1 standard drink = 0.6 oz pur e alcohol) Comments No Sex and Gender Information Value Date Recorded Sex Assigned at Not on file 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 Gallbladder is distended with prominent sized gallstone and trace pericholecystic fluid. ekp - uploaded from [employer] 06/08/2011 8:25 AM CDT Abdomen Pelvic MRI 06/07/2011 Abdomen and pelvis imaged with sequences obtained in several planes pre- and post administration of 20 mL Optimark intravenous contrast. Mild to moderate irregularity of liver contour. No apparent abnormal enhancing liver lesion. Gallbladder is distended with a prominent sized stone within gallbladder neck. Trace pericholecystic fluid. Splenomegaly measuring 16.5 cm in greatest length. Remainder of solid upper abdominal organs unremarkable. Biliary tree not abnormally dilated. Remainder of solid upper abdominal organs unremarkable. No apparent lymphadenopathy. No free fluid. Varices within gastrosplenic ligament. Surgical absence of uterus. Trace pocket of free fluid within dependent recesses of pelvis. Imaged bowel structures nonspecific. Procedure Note Tg Edwards MD - 06/08/2011 Abdomen Pelvic MRI 06/07/2011 Abdomen and pelvis imaged with sequences obtained in several planes pre- and post administration of 20 mL Optimark intravenous contrast. Mild to moderate irregularity of liver contour. No apparent abnormal enhancing liver lesion. Gallbladder is distended with a prominent sized stone within gallbladder neck. Trace pericholecystic fluid. Splenomegaly measuring 16.5 cm in greatest length. Remainder of solid upper abdominal organs unremarkable. Biliary tree not abnormally dilated. Remainder of solid upper abdominal organs unremarkable. No apparent lymphadenopathy. No free fluid. Varices within gastrosplenic ligament. Surgical absence of uterus. Trace pocket of free fluid within dependent recesses of pelvis. Imaged bowel structures nonspecific. IMPRESSION Impression: Overall findings most compatible with cirrhosis which includes splenomegaly and mild upper abdominal varices. Gallbladder is distended with prominent sized gallstone and trace pericholecystic fluid. 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
--- OUTSIDE RECORDS SUMMARY | 2025-06-07 11:29 | XMS_ITS | Patient Health Record ---
Author Organization [facility] [employer] Address [address] [place] [address] Care Team Providers Care Chuck Splitter Name Role Phone Caden Haas Primary Care Provider Unavailab JOHN Webb Unavailable [phone] Clint Yuen Unavailable Unavailable GUSTAVO HOLLAND Unavailable [phone] Allergies Allergen (clinical drug ingredient) Drug/Non Drug Allergy documented on EMR Reaction Allergy Type Onset Date Status erythromycin Erythromycin Base Unknown Drug Allergy Active acetaminophen Acetaminophen Unknown Drug Allergy Active codeine Codeine Unknown Drug Allergy Active Iodinated contrast media (substance) Iodinated Diagnostic Agents Unknown Drug Allergy Active Penicillin Unknown Drug Allergy Active Reason For Referral No Information Medications Medication SIG (Take, Route, Frequency, Duration) Notes Start Date End Date Status hydrOXYzine HCl 25 MG 1 tablet as needed Orally Once a day Active Carbidopa-Levodopa 10-100 MG 1 tablet Orally Three times a day Active Furosemide 20 MG 1 tablet Orally Once a day Active busPIRone HCl 5 MG 1 tablet Orally Twic e a day Active Isosorbide Mononitrate 10 MG 1 tablet Orally Twice a day Active Pregabalin 100 MG 1 capsule in the talib juany 1 to 3 hours before bedtime Orally Once a day Active Nitroglycerin 0.3 MG as directed Sublingual Active Diclofenac Sodium 3 % 1 application Exte rnally Twice a day Active Triamcinolone (oint)-Silicone Active Albuterol Sulfate 108 (90 Base) MCG/ACT 1 puff as needed Inhalation every 4 hrs Active ALPRAZolam 0.25 MG 1 tablet Orally Twic e a day Active Levothyroxine Sodium 75 MCG 1 tablet in the morning on an empty stomach Orally Once a day Active Sertraline HCl 100 MG 1 tablet Orally On ce a day Active Social History Tobacco Use: Social History Observation Description Date Details (start date - stop date) Current Smoker NA - NA Tobacco Control (Standard) Question Answer Notes Tobacco use: Current smoker Problems Problem Type SNOMED Code ICD Code Onset Dates Problem Status W/U Status Risk Notes Problem Cystitis (98115198) Other cystitis without hematuria (N30.80) Active confirmed Problem Urethral stricture (disorder) (72736005) Urethral stricture unspecified (N35.919) Active confirmed Problem Chronic cystitis (49065865) Chronic cystitis (N30.20) Active confirmed Problem Bladder diverticulum (120336704) Bladder diverticulum (N32.3) Active confirmed Problem Incomplete emptying of bladder (472147712) Incomplete emptying of bladder (R33.9) Active confirmed Plan Of Treatment No Information Insurance Providers Payer Name Payer Address Payer Phone Subscriber Number Group Number Insured Name Patient Relationship to Insured Coverage Start Date Coverage End Date [employer] Medicare Replacement [address] [address] [place], [place] [id number] Bárbara Mayfield Self - patient is the insured Medical (General) History Medical History History ICD Code hep c anexiety hematuria incontinence COPD DDD Arthritis Surgical History Surgery Date(Month/Year) total hysterectomy' 1985 vein surgery nerve block Hospitalization History Reason Date(Month/Year) see above
--- OUTSIDE RECORDS SUMMARY | 2025-06-07 11:29 | XMS_ITS | Clinical Summary ---
Author Organization [facility] Address [address] [place] [address] Phone Care Team Providers Care Quirk Sander Name Role Phone Dae Peacock MD Primary Care Provider [phone] Allergies Active Allergy Reactions Criticality Noted Date Comments Codeine Hives,Itching High 05/31/2011 Erythromycin Hives,Itching High 05/31/2011 Ferrous Sulfate Itching Low 01/09/2012 Iodinated Contrast Media Other (See Comments) 05/31/2011 palpitations, itching, dyspnea Penicillins Anaphylaxis High 05/31/2011 Tramadol Hives High 08/15/2011 Medications ibuprofen (ADVIL) 200 mg Oral tablet Take 200 mg by mouth every 6 hours as needed. Active cyclobenzaprine (FLEXERIL) 10 mg Oral tablet Take 10 mg by mouth 3 times daily as needed. Active albuterol (VENTOLIN HFA) 90 mcg/Actuation Inhalation HFAA Take 1 Puff by inhalation one time only. Active Peginterferon leyla-2b (PEG-INTRON REDIPEN) 120 mcg/0.5 mL subCUT PnKtIndications :Chronic hepatitis C without mention of hepatic coma (CMS/HCC) Inject 120 mcg by subcutaneous injection every 7 days. 52 Each 11 1 Active ribavirin (REBETOL) 200 mg Oral CapIndications: Chronic hepatitis C without mention of hepatic coma (CMS/HCC) Take 3 Caps by mouth 2 times daily with meals. 60 Cap 11 1 Active diphenhydrAMINE (BENADRYL) 25 mg Oral tablet Take 25 mg by mouth every 6 hours as needed. Active MOMETASONE/FORM OTEROL (DULERA INHALATION) Take by inhalation. Active promethazine (PHENERGAN) 25 mg Oral tablet Take 25 mg by mouth every 6 hours as needed. Active Levothyroxine 25 mcg Oral Cap Take by mouth daily before breakfast. Active furosemide (LASIX) 10 mg Oral Tab daily. Active escitalopram (LEXAPRO) 10 mg Oral tablet 5 mg daily. Active hydrOXYzine HCl (ATARAX) 25 mg Oral tablet Take 1 Tab by mouth 4 times daily as needed for Itching. 60 Tab 0 2 Active zolpidem (AMBIEN) 10 mg Oral tablet Take 5 mg by mouth nightly as needed. 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 Gender Identity Not on file Sexual Orientation Not on file Occupation Industry Job Start Date Job End Date Not on file Not on file Not on file Not on file Last Filed Vital Signs Vital Sign Reading Time Taken Comments Blood Pressure 160/78 02/21/2012 2:02 PM CDT Pulse 85 02/21/2012 2:02 PM CDT Temperature 36.7 C (98 F) 12/03/2011 12:06 PM CDT Respiratory Rate 18 12/03/2011 12:06 PM CDT Oxygen Saturation 100% 02/21/2012 2:02 PM CDT Inhaled Oxygen Concentration - - Weight 87 kg (191 lb 12 oz) 02/21/2012 2:02 PM C DT Height 162.6 cm (5' 4 ) 02/21/2012 2:02 PM CDT Body Mass Index 32.91 02/21/2012 2:02 PM CDT Plan of Treatment Health Maintenance Due Date Last Done Comments DTAP/TDAP/TD VACCINES (1 - Tdap) 01/04/1972 PNEUMOCOCCAL VACCINE 50+ YEA RS (1 of 2 - PCV) 01/04/1972 BREAST CANCER SCREENING 1993 COLORECTAL SCREENING 1998 Colorectal Cancer Screening 1998 FIT-DNA Q 3 years 1998 FIT/FOBT Q 1 year 1998 Flex Sig/CT Colonography Q 5 years 1998 ZOSTER VACCINE (1 of 2) 2003 UPPER GI ENDOSCOPY 04/04/2012 10/05/2011, 0 10/05/2011, 08/24/2011, Additional history exists RSV VACCINE (60+ or ) (1 - Risk 60-74 years 1-dose series) 2013 OSTEOPOROSIS SCREENING 2018 INFLUENZA VACCINE (#1) 2025 Medical Devices Implanted Type Area Brick Molder Hand Device Identifier Shelf Expiration Date Model / Serial / Lot Log [id number] - Endoscopy Ligation - 1 - Ligator Band Super 7 [id number] Implanted:Qty: 1 on 08/24/2011 at [facility] Other Esophagus [employer]- ENDOSCOPY 04/24/2012 4225-40 / / [id number] Log [id number] - Endoscopy Ligation - 1 - Ligator Band Super 7 [id number] Implanted:Qty: 1 on 10/05/2011 at [facility] Other N/A: Esophagus [employer]- ENDOSCOPY 08/09/2012 4225-40 / [id number] / [id number] Description:2 bands placed Insurance Immunity Project [employer] ACCESS PLUS Advance Directives For more information, please contact: [phone] * Full Code (Latest Code Status on File) Date Activated Date Inactivated Comments 10/05/2011 10:26 AM 10/05/2011 4:24 PM * Full Code Date Activated Date Inactivated Comments 08/24/2011 9:39 AM 08/25/2011 2:01 AM * Full Code Date Activated Date Inactivated Comments 06/14/2011 2:34 PM 06/14/2011 6:10 PM Care Teams Quirk Sander Relationship Specialty Start Date End Date Dae Peacock MD [facility] [address] [place] [address] PCP - General Family Practice 06/12/11
--- OUTSIDE RECORDS SUMMARY | 2025-06-07 11:29 | XMS_ITS | Patient Health Record ---
Author Organization [facility] Address [address] [place] [address] Care Team Providers Care Blow Up Operator Name Role Phone Kwesi Carmichael Primary Care Provider Unavailabl e Jacky Ritter Unavailable [phone] Jorge Cohen Unavailable Unavailable Allergies Allergen (clinical drug ingredient) Drug/Non Drug Allergy documented on EMR Reaction Allergy Type Onset Date Status cat dander allergenic extract / cat skin extract Cat Hair Extract Unknown Drug Allergy Active Sulfacet-Sulfur Pad & Cleanser Unknown Drug Allergy Active codeine Codeine Unknown Drug Allergy Active Dust Mites Unknown Allergy Active Dye, Red Unknown Drug Allergy Active erythromycin Erythromycin Unknown Drug Allergy A ctive Mold Unknown Allergy Active Penicillin Unknown Drug Allergy Active Reason For Referral No Information Medications Medication SIG (Take, Route, Frequency, Duration) Notes Start Date End Date Status Milk Thistle 500 MG Capsule as directed Orally Active Advil Dual Action 125-250 MG Tablet 2 tablets as needed Orally every 8 hrs Not-Taking Levocetirizine Dihydrochloride 5 MG Tablet 1 tablet in the evening Orally Once a day Active Ibuprofen 200 MG Tablet 1 tablet with fo od or milk as needed Orally Three times a day Not-Taking Ondansetron 4 MG Tablet Disintegrating 1 tablet on the tongue and allow to dissolve Orally Once a day Active Albuterol Sulfate 0.63 MG/3ML Nebulization Solution as directed Inhalation Activ e hydrOXYzine HCl 10 MG Tablet 1 tablet as needed Orally Three times a day Active Triamcinolone Acetonide 0.1 % Cream APPLY EXTERNALLY TWICE A DAY FOR 30 DAYS; Duration: 30 Active Doxycycline Hyclate 100 MG Capsule 1 capsule Orally Once a day Not-Taking Calcium 500 MG Tablet 1 tablet with meal s Orally Twice a day Active Bacillus Coagulans-Inulin - Capsule as directed Orally Not-Takin g Salicylic Acid 40 % Miscellaneous 1 application Externally Not-Taking Holman 0.65 % Solution as directed Nasally Not-Taking Magnesium Oxide 400 MG Tablet 1 tablet as needed Orally Once a day Active Isosorbide Mononitrate ER 30 MG Tablet Extended Release 24 Hour 1/2 tablet Orally Once a day Active Isosorbide Mononitrate Not-Taking Pregabalin 100 MG Capsule 1 capsule Oral ly Twice a day Active Omeprazole 20 MG Capsule Delayed Release 1 capsule 30 minutes before morning meal Orally Once a day Not-Taking Furosemide 20 MG Tablet 1 tablet Orally Once a day Active Levothyroxine Sodium 75 MCG Tablet 1 tablet in the morning on an empty stomach Orally Once a day Active Nitrofurantoin Macrocrystal 100 MG Capsule 1 capsule at bedtime with food or milk Orally Once a day Not-Taking Diclofenac Sodium 1 % Gel as directed Externally Not-Taking ALPRAZolam 0.25 MG Tablet 1 tablet Orall y Three a day Active busPIRone HCl 5 MG Tablet 1 tablet Orall y Three a day Active Carbidopa-Levodopa 10-100 MG Tablet 1 tablet as needed Orally Three times a day Active Nitroglycerin 0.4 MG Tablet Sublingual as directed Sublingual Active Nystatin 424122 UNIT/GM Cream 1 application Externally Twice a day Active Potassium Chloride 10 MEQ Packet 1 packet with food Orally Once a day Active Sertraline HCl 100 MG Tablet 1 tablet Orally Once a day Active Immunizations Vaccine Route Administration Date Status Comme nts Flucelvax Trivalent, Syringe 0.5 mL, PF Unknown 025 Refused Social History Tobacco Use: Social History Observation Description Date Details (start date - stop date) Current Smoker NA - NA Social History Depression Screening Social Info Question Answer Notes depression screening findings Findings Negative (0 -4) 08/04/24 PHQ-9 Little interest or p reshma in doing things Not at all Feeling down, depressed, or hopeless Not at all Trouble falling or staying asleep, or sleeping t oo much Not at all Feeling tired or having little energy Not at all Poor appetite or overeating Not at all Feeling bad about yourself, or that you are a failure, or have let yourself or your family down Not at all Trouble concentrating on thi ngs, such as reading the newspaper or watching television Not at all Moving or speaking so slowly that other people could have noticed. Or the opposite ? being so fidgety or restless that you have been moving around a lot more than usual Not at all Thoughts that you would be b shaq off , or of hurting yourself in some way Not at all Total Score 0 Drugs/Alcohol: Social Info Question Answer Notes Drugs Have you used drugs other than those for medical reasons in the past 12 months? Yes Marijuana? Yes Drug/Alcohol: Social Info Question Answer Notes AUDIT-C (Standard) Did you have a drink containing alcohol in the past year? Yes How often did you have six or more drinks on one occasion in the past year? Less than monthly (1 point) How many drinks did you have on a typical day when you were drinking in the past year? 1 or 2 drinks (0 point) How often did you have a drink containing alcohol in the past year? Monthly or less (1 point) Points 2 Interpretation Negative Tobacco Use: Social Info Question Answer Notes Tobacco Control (Standard) Tobacco use: Current smoker How often do you smoke cigarettes? Every day How many cigarettes a day do you smoke? - Additional Details Category Social Info Options Details Drugs/Alcohol: Do you smoke marijuana? Ad mits Do you drink alcohol? past Section Notes: Dep - 07/15/24 Tob - 07/15/24 07/15/24 Problems Problem Type SNOMED Code ICD Code Onset Dates Problem Status W/U Status Risk Notes Problem Obesity (517403102) Obesity, unspecified (E66.9) Active confirmed Problem Cirrhosis of liver (62777356) Unspecified cirrhosis of liver (K74.60) Active confirmed Problem Cirrhosis of liver () Other cirrhosis of liver (K74.69) Active confirmed Problem Chronic hepatitis C (354889434) Chronic hepatitis C without hepatic coma (B18.2) Active confirmed Problem Body mass index 30.00 to 34.99 (7796500673938 07) BMI 31.0-31.9,adult (Z68.31) Active confirmed Problem Viral hepatitis type C (05105525) Hepatitis C virus infection without hepatic coma, unspecified chronicity (B19.20) Active confirmed Vital Signs Heart Rate 64 /min 10/20/2024 Temperature 98 degrees Fahrenheit 10/20/2024 Height-cm 160.02 cm 10/20/2024 Blood pressure diastolic 74 mm Hg 10/20/2024 Oximetry 98 % 10/20/2024 Weight-kg 80.47 kg 10/20/2024 Height 63 in 10/20/2024 Blood pressure systolic 130 mm Hg 10/20/2024 Weight 177.4 lbs 10/20/2024 BMI 31.42 kg/m2 10/20/2024 Encounters Encounter Location Date Provider Diagnosis [facility] [address] [address] 07/15/2024 Jacky Ritter Chronic hepatitis C without hepatic coma B18.2 ; BMI 31.0-31.9,adult Z68.31 and Depression screen Z13.31 [facility] [address] [address] 10/20/2024 Jacky Ritter Chronic hepatitis C without hepatic coma B18.2 ; Depression screen Z13.31 ; Exercise counseling Z71.82 ; Obesity, unspecified E66.9 ; Encounter for immunization Z23 and Immunization not carried out because of patient refusal Z28.21 [facility] [address] [address] 10/28/2024 Jacky Ritter Chronic hepatitis C without hepatic coma B18.2 [facility] [address] [address] 10/28/2024 Jacky Ritter Chronic hepatitis C without hepatic coma B18.2 Assessments Encounter Date Diagnosis (ICD Code) Assessment Notes Treatment Notes Treatment Clinical Notes Section Notes 07/15/2024 BMI 31.0-31.9,adult (ICD-10 - Z68.31) 07/15/2024 Chronic hepatitis C without hepatic coma (ICD-10 - B18.2) 10/20/2024 Chronic hepatitis C without hepatic coma (ICD-10 - B18.2) 10/28/2024 Chronic hepatitis C without hepatic coma (ICD-10 - B18.2) 10/28/2024 Chronic hepatitis C without hepatic coma (ICD-10 - B18.2) 10/20/2024 Depression screen (ICD-10 - Z13.31) 07/15/2024 Depression screen (ICD-10 - Z13.31) 10/20/2024 Exercise counseling (ICD-10 - Z71.82) 10/20/2024 Obesity, unspecified (ICD-10 - E66.9) 10/20/2024 Encounter for immunization (ICD-10 - Z23) 10/20/2024 Immunization not carried out because of patient refusal (ICD-10 - Z28.21) 10/20/2024 Other Body Mass Index calculated and found to be greater than 25. Weight loss plan discussed verbally with patient and appropriate goals set. 6 mins spent in counseling Patient education provided specific to patient's overall health and included the applicable items below: Sample weight-loss diet plan Information regarding nutritional supplements Contact information for [place] Department of Health and Human Services for additional resources Guide to reading nutrition labels Pharmacologic intervention options Surgical intervention options Mental health related to nutrition Portion distortion education Follow-Up appointment scheduled at check out. Plan Of Treatment No Information Insurance Providers Payer Name Payer Address Payer Phone Subscriber Number Group Number Insured Name Patient Relationship to Insured Coverage Start Date Coverage End Date [place] [address] [address] [place] [address] [id number] Bárbara Mayfield Self - patient is the insured Human Medicare Supplement [address] [address] [place] [address] [id number] Bárbara Mayfield Self - patient is the insured Medical (General) History Medical History History ICD Code measles mumps Chicken Pox scarlet fever Pneumonia Heart Disease rheumatic fever Venereal Disease anemia bladder infections blood transfusion Back Trouble hemorrhoids asthma hives eczema bronchitis cancer Hepatitis c Surgical History Surgery Date(Month/Year) Oral surgery tonsillectomy Liver biopsy x 7 R wrist surgery L shoulder tumor removal L leg tumor removal above knee hysterectomy
--- OUTSIDE RECORDS SUMMARY | 2025-06-07 11:29 | XMS_ITS | Clinical Summary ---
Author Organization [facility] Address [address] Florezn: Epic Prelude ADT [place] [address] Care Team Providers Care Housekeeper Head Name Role Phone Dae Peacock MD Primary Care Provider [phone] Allergies Active Allergy Reactions Criticality Noted Date Comments Codeine Hives,Itching High 05/31/2011 Erythromycin Hives,Itching High 05/31/2011 Ferrous Sulfate Itching Low 01/09/2012 Iodinated Contrast Media Other (See Comments) 05/31/2011 palpitations, itching, dyspnea Penicillins Anaphylaxis High 05/31/2011 Tramadol Hives High 08/15/2011 Medications sertraline (ZOLOFT) 100 mg tablet Take 100 mg by mouth daily. 5 Active levocetirizine (XYZAL) 5 mg tablet Take 5 mg by mouth late in the day. 5 Active ALPRAZolam (XANAX) 0.25 mg tablet Take 0.25 mg by mouth 3 times daily as needed. 5 Active isosorbide mononitrate (IMDUR) 30 mg Extended Release 24 hour tablet Take 15 mg by mouth daily in the morning. 5 Active furosemide (LASIX) 20 mg tablet Take 20 mg by mouth daily. 5 Active triamcinolone acetonide (KENALOG) 0.1 % Cream Apply to affected area 2 times daily. 5 Active pregabalin (LYRICA) 100 mg Capsule Take 100 mg by mouth every 12 hours. 5 Active busPIRone (BUSPAR) 5 mg tablet Take 5 mg by mouth 3 times daily. 5 Active carbidopa-levodo pa (SINEMET) 25-100 mg tablet Take 1 Tablet by mouth 3 times daily. 5 Active hydrOXYzine HCL (ATARAX) 25 mg tablet Take 25 mg by mouth 3 times daily as needed for Itching. 5 Active potassium CHLORIDE (MICRO-K EXTENCAPS) 10 mEq Extended Release capsule Take 10 mEq by mouth daily. 5 Active levothyroxine 75 mcg tablet Take 75 mcg by mouth daily in the morning. 5 Active albuterol sulfate HFA 90 mcg/actuation aerosol inhaler Take 1 Puff by inhalation one time only. Active nitroglycerin (NITROSTAT) 0.4 mg Tablet, Sublingual Place 0.4 mg under tongue every 5 minutes as needed for Chest Pain. Active Active Problems Problem Noted Date Diagnosed Date Chronic hepatitis C without mention of hepatic c radha 11/14/2011 Encounters Date Type Department Care Team Description 06/04/2025 3:30 PM CDT Office Visit [facility] Gastroenterology[address] [place] [phone] Gladis Allen FNP History of hepatitis C (Primary Dx); Abnormal findings on diagnostic imaging of liver and biliary tract; Abnormal results of liver function studies; Encounter for screening for other viral diseases; Encounter for hepatitis C virus screening test for high risk patient; History of colon polyps; Other cirrhosis of liver (CMS/HCC); H/O colonoscopy with polypectomy from Last 3 Months Family History Medical History Relation Name Comments Colon Cancer Neg Hx Social History Tobacco Use Types Packs/Day Years Used Date Smoking Tobacco: Every Day Cigarettes Alcohol Use Standard Drinks/Week Comments No 0 (1 standard drink = 0.6 oz pur e alcohol) Comments Unknown Sex and Gender Information Value Date Recorded Sex Assigned at Not on file 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 Gender Identity Not on file Sexual Orientation Not on file Last Filed Vital Signs [...] Mass Index 31.18 06/04/2025 3:27 PM CDT Plan of Treatment Upcoming Encounters Date Type Department Care Team (Late st Contact Info) Description 12/03/2025 2:00 PM CDT Office Visit [facility]ology- [place] [address] [place] [address] Gladis Allen, COMPLIANCE SPEC [address] [place] [address] Health Maintenance Due Date Last Done Comments UPPER GI ENDOSCOPY 1971 PNEUMOCOCCAL VACCINE 50+ YEA RS (1 of 2 - PCV) 01/04/1972 06/18/1998 BREAST CANCER SCREENING 1993 COLORECTAL SCREENING 1998 Colorectal Cancer Screening 1998 FIT-DNA Q 3 years 1998 FIT/FOBT Q 1 year 1998 Flex Sig/CT Colonography Q 5 years 1998 DTAP/TDAP/TD VACCINES (1 - Tdap) 11/02/2000 11/01/19, 04/23/1997 ZOSTER VACCINE (1 of 2) 2003 RSV VACCINE (60+ or ) (1 - Risk 60-74 years 1-dose series) 2013 OSTEOPOROSIS SCREENING 2018 INFLUENZA VACCINE (#1) 2025 Medical Devices Implanted Type Area Conditioner Tumbler Device Identifier Shelf Expiration Date Model / Serial / Lot Log [id number] - Endoscopy Ligation - 1 - Ligator Band Super 7 [id number] Implanted:Qty : 1 on 08/24/2011 Other Esophagus [employer] ENDOSCOPY 04/24/2012 4225-40 / / [id number] Log [id number] - Endoscopy Ligation - 1 - Ligator Band Super 7 [id number] Implanted:Qty : 1 on 10/05/2011 Other N/A: Esophagus [employer] ENDOS[employer] 08/09/2012 4225-40 / [id number] / [id number] Description:2 bands placed Procedures Procedure Name Priority Date/Time Associated Diagnosis Comments HIV DETECTION W/REFLX CONFIRMATION Routine 06/04/2025 4:06 PM CDT History of hepatitis C HEPATITIS C RNA PCR, QUANTITATIVE Routine 06/04/2025 4:06 PM CDT History of hepatitis C HEPATITIS B SURFACE ANTIGEN Routine 06/04/2025 4:06 PM CDT History of hepatitis C Encounter for screening for other viral diseases HEPATITIS B SURFACE AB, QUAL Routine 06/04/2025 4:06 PM CDT History of hepatitis C Encounter for hepatitis C virus screening test for high risk patient HEPATITIS B CORE AB TOTAL Routine 06/04/2025 [...] 4:06 PM CDT History of hepatitis C from Last 3 Months Results * HIV DETECTION W/REFLX CONFIRMATION (06/04/2025 4:06 PM CDT) [facility] RESULT HIV NEGATIVE [facility] [place] Comment: Quest component Name and Code: HIV FINAL INTERPRETATION [[id number]] HIV-1 antigen and HIV-1/HIV-2 antibodies were not detected. There is no laboratory evidence of HIV infection. HIV-1/2 AG AND AB SCREEN NON-REACTIVE NON-REACT ERIC [facility] [place] Comment: Test Performed at: [facility] [address] [place] [address] Jane Rizvi MD Blood 06/04/2025 4:06 PM CDT 06/04/2025 4:07 PM CDT Gladis Herrera COMPLIANCE SPEC CHEMISTRY ORDERABLES Final Result Performing Organization Address City/[facility]/ZIP Co de Phone Number [facility] [phone] [facility] [address] [place] [address] * HEPATITIS B CORE AB TOTAL (06/04/2025 4:06 PM CDT) HEPATITIS B CORE AB NON-REACTI VE NON-REACTI VE [facility] Comment: For additional information, please refer to http://education.[employer]/faq/RKF707 (This link is being provided for informational/ educational purposes only.) FASTING:NO FASTING: NO Test Performed at: [facility] [address] [place] [phone] MaritzaAnn-Marie Rizvi MD Blood 06/04/2025 4:06 PM CDT 06/04/2025 4:07 PM CDT Gladis Allen [facility] CHEMISTRY ORDERABLES Final Result Performing Organization Address City/[facility]/ZIP Co de Phone Number [facility] [phone] [facility] [address] [place] [address] * HEPATITIS B SURFACE AB, QUAL (06/04/2025 4:06 PM CDT) HEPATITIS B SURFACE AB, QUAL NON-REACTI VE NON-REACTI VE [facility] Comment: FASTING:NO FASTING: NO Test Performed at: [facility] [address] [facility] [place] [address] Jane Rizvi MD Blood 06/04/2025 4:06 PM CDT 06/04/2025 4:07 PM CDT Jonesatrice Fetty COMPLIANCE SPEC CHEMISTRY ORDERABLES Final Result Performing Organization Address [facility] Co de Phone Number [facility] [phone] [facility] [address] [address] [address] * (ABNORMAL) HEPATITIS C RNA PCR, QUANTITATIVE (06/04/2025 4:06 PM CDT) HCV RNA, QUANT REAL TIME PCR 6602385(H) IU/mL [facility], HCV RNA QUANT PCR COPIES IU/ML 6.69(H) Log IU/mL [facility], Comment: REFERENCE RANGE: NOT DETECTED IU/mL NOT DETECTED Log IU/mL For additional information, please refer to http://Web and Rank.[employer]/faq/IEY37j2 (This link is being provided for informational/ educational purposes only.) FASTING:NO FASTING: NO Test Performed at: [facility], [id number] [place] [phone] Wendy Taylor MD,PhD,CARINA Blood 06/04/2025 4:06 PM CDT 06/04/2025 4:07 PM CDT Arabellae Fetty COMPLIANCE SPEC CHEMISTRY ORDERABLES Final Result Performing Organization Address [facility] Co de Phone Number [facility] [phone] [facility], [address] [place] [address] * HEPATITIS B SURFACE ANTIGEN (06/04/2025 4:06 PM CDT) HEPATITIS B SURFACE AG NON-REACTI VE NON-REACTI VE [facility] Comment: For additional information, please refer to http://Web and Rank.[employer]/faq/NRE743 (This link is being provided for informational/ educational purposes only.) Test Performed at: [facility] [address] Jane Rizvi MD Blood 06/04/2025 4:06 PM CDT 06/04/2025 4:07 PM CDT [facility] COMPLIANCE SPEC CHEMISTRY ORDERABLES Final Result [facility] [phone] [facility] [address] * HEPATITIS A IGM (06/04/2025 4:06 PM CDT) Pathologist [facility] HEPATITIS A IGM NON-REACTI VE NON-REACTI VE [facility] Comment: For additional information, please refer to http://education.[employer]/faq/WRQ024 (This link is being provided for informational/ educational purposes only.) FASTING:NO FASTING: NO Test Performed at: [facility] [address] Jane Rizvi MD Blood 06/04/2025 4:06 PM CDT 06/04/2025 4:07 PM CDT [facility]LES Final Result [facility] [phone] [facility] [address] * (ABNORMAL) CBC WITH DIFFERENTIAL (06/04/2025 4:06 PM CDT) Pathologist [facility] WBC 8.0 3.8 - 10.8 Thousand/u L [facility] RBC 4.46 3.80 - 5.10 Million/uL [facility] HEMOGLOBIN 13.8 11.7 - 15.5 g/dL [facility] HEMATOCRIT 41.4 35.0 - 45.0 % [facility] MCV 92.8 80.0 - 100.0 fL [facility] MCH 30.9 27.0 - 33.0 pg [facility] MCHC 33.3 32.0 - 36.0 g/dL [facility] Comment: For adults, a slight decrease [...] 88 15 - 500 cells/uL [facility] BASOPHILS ABSOLUTE 48 0 - 200 [...] numbers of platelets. Slide review performed at: [facility] [place] [address] [place] [address] Hemotherapist: Irvin Kohli [id number] FASTING:NO FASTING: NO Test Performed at: [facility] [address] [place] [address] Mukesh Stacy Blood 06/04/2025 4:06 PM CDT 06/04/2025 4:07 PM CDT Gladis Allen COMPLIANCE SPEC HEMATOLOGY ORDERABLES Final Result Performing Organization Address City/[facility] Co de Phone Number [facility] [phone] [facility] [address] [place] [address] * (ABNORMAL) PROTIME-INR (06/04/2025 4:06 PM CDT) Pathologist [facility] INR 1.2(H) [facility] Comment: Reference Range 0.9-1.1 Moderate-intensity Warfarin Therapy 2.0-3.0 Higher-intensity Warfarin Therapy 3.0-4.0 PROTIME 12.1(H) 9.0 - 11.5 sec [facility] Comment: For additional information, please refer to http://Web and Rank.[employer]/faq/UKK034 (This link is being provided for informational/ educational purposes only.) FASTING:NO FASTING: NO Test Performed at: [facility] [address] [place] [address] Mukesh Stacy Blood 06/04/2025 4:06 PM CDT 06/04/2025 4:07 PM CDT Gladis Allen COMPLIANCE SPEC HEMATOLOGY ORDERABLES Final Result Performing Organization Address City/[facility] de Phone Number [facility] [phone] [facility] [address] [place] [address] * (ABNORMAL) COMPREHENSIVE METABOLIC PANEL (06/04/2025 4:06 PM CDT) Pathologist [facility] GLUCOSE 94 65 - 139 mg/dL [facility] Comment: Non-fasting reference interval BUN 12 7 - 25 mg/dL [facility] CREATININE 0.76 0.60 - 1.00 mg/dL [facility] GFR 83 > OR = 60 mL/min/1. 73m2 [facility] BUN/CREAT RATIO SEE NOTE: 6 - 22 (calc) [facility] Comment: Not Reported: BUN and Creatinine are within reference range. SODIUM 137 135 - 146 mmol/L [facility] POTASSIUM 3.7 3.5 - 5.3 mmol/L [facility] CHLORIDE 104 98 - 110 mmol/L [facility] CO2 30 20 - 32 mmol/L [facility] CALCIUM 8.9 8.6 - 10.4 mg/dL [facility] TOTAL PROTEIN 7.8 6.1 - 8.1 g/dL [facility] ALBUMIN 4.1 3.6 - 5.1 g/dL [facility] GLOBULIN 3.7 1.9 - 3.7 g/dL (calc) [facility] ALBUMIN/GLOBULIN RATIO 1.1 1.0 - 2.5 (calc) [facility] RR BILIRUBIN TOTAL 1.3(H) 0.2 - 1.2 mg/dL [facility] ALKALINE PHOSPHATASE 87 37 - 153 U/L [facility] AST 41(H) 10 - 35 U/L [facility] ALT 14 6 - 29 U/L [facility] Comment: Test Performed at: [facility] [address] [place] [address] Mukesh Stcay Blood 06/04/2025 4:06 PM CDT 06/04/2025 4:07 PM CDT Gladis Allen COMPLIANCE SPEC CHEMISTRY ORDERABLES Final Result [facility] [phone] [facility] [address] [place] [address] from Last 3 Months Insurance [facility] [id number] [facility] Care Teams Housekeeper Head Relationship Specialty Start Date End Date Dae Peacock MD [facility] [address] [place] [phone] PCP - General Family Practice 06/12/11
--- NOTE | 2025-06-07 11:46 | W.ED.EXTPRO ---
HPI - Extremity Problem General: Chief complaint: Extremity Problem,Nontraumatic Stated complaint: right foot pain swelling up to the knee Time Seen by Provider: 06/07/25 11:44 History of Present Illness: 70-year-old female with history of COPD, cirrhosis, bipolar disorder, hypertension and congestive heart failure who presents to the emergency room with right foot and lower extremity pain redness and swelling. No trauma. He is not on any anticoagulation. No chest pain. No shortness of breath. No oxygen requirements and no tachycardia. Related Data Home Medications ?Medication ?Instructions ?Recorded ?Confirmed albuterol sulfate 90 mcg/actuation 2 puff inhalation Q6H PRN 06/01/20 02/20/24 aerosol inhaler (Ventolin HFA) Shortness Of Breath Or Wheezing magnesium oxide 400 mg PO DAILY 06/01/20 02/20/24 potassium chloride 10 mEq 10 meq PO DAILY 06/01/20 02/20/24 tablet,extended release alprazolam 0.25 mg tablet 0.25 mg PO DAILY 08/02/21 02/20/24 levothyroxine 100 mcg capsule 100 mcg PO DAILY 08/02/21 02/20/24 omeprazole 20 mg capsule,delayed 20 mg PO DAILY 08/02/21 02/20/24 release pregabalin 100 mg capsule 100 mg PO BID 08/02/21 02/20/24 buspirone 5 mg tablet 5 mg PO TID 05/02/22 02/20/24 albuterol sulfate 2.5 mg/0.5 mL 10 mg inhalation Q4H PRN Shortness 07/06/22 02/20/24 solution for nebulization Of Breath Or Wheezing Bacillus coagulans 10 billion cell 10 cell PO DAILY 10/31/22 02/20/24 capsule,delayed release (Probiotic (B. coagulans)) carbidopa 25 mg-levodopa 100 mg 1 tab PO TID 08/15/23 02/20/24 tablet nitrofurantoin macrocrystal 100 mg 100 mg PO BID 08/15/23 02/20/24 capsule sertraline 100 mg tablet 100 mg PO DAILY 08/15/23 02/20/24 doxycycline hyclate 100 mg capsule 100 mg PO BID 08/23/23 02/20/24 ibuprofen 200 mg capsule 200 mg PO Q6H PRN 08/23/23 02/20/24 nystatin 100,000 unit/gram topical 1 applic topical DAILY PRN 08/23/23 02/20/24 ointment salicylic acid 40 % topical patch 1 applic topical Q48H 08/23/23 02/20/24 (Compound W) hydroxyzine HCl 10 mg tablet 10 mg PO BID PRN 01/03/24 02/20/24 triamcinolone acetonide 0.1 % 1 applic topical BID 01/03/24 02/20/24 topical cream Previous Rx's ?Medication ?Instructions ?Recorded furosemide 20 mg tablet 20 mg PO DAILY #90 tabs 06/02/22 eltrombopag olamine 12.5 mg tablet 12.5 mg PO DAILY 30 days #30 tabs 01/16/24 (Promacta) isosorbide mononitrate 30 mg See Rx Instructions .Route 03/12/24 tablet,extended release 24 hr .COMPLEX #45 tabs nitroglycerin 0.4 mg sublingual See Rx Instructions .Route 07/28/24 tablet .COMPLEX #25 tabs Allergies Allergy/AdvReac Type Severity Reaction Status Date / Time sulfur dioxide Allergy Severe ADR-Itching Verified 06/07/25 11:25 /SOB codeine Allergy Unknown Unknown Verified 06/07/25 11:25 Iodinated Contrast Media Allergy Unknown Unknown Verified 06/07/25 11:25 Penicillins Allergy Unknown Unknown Verified 06/07/25 11:25 acetaminophen (From Allergy rash Verified 06/07/25 11:25 Darvocet-N) erythromycin base Allergy rash Verified 06/07/25 11:25 propoxyphene (From Allergy rash Verified 06/07/25 11:25 Darvocet-N) Review of Systems Narrative: Constitutional symptoms: Negative except as documented in HPI. Skin symptoms: Negative except as documented in HPI. Eye symptoms: Negative except as documented in HPI. ENMT symptoms: Negative except as documented in HPI. Respiratory symptoms: Negative except as documented in HPI. Cardiovascular symptoms: Negative except as documented in HPI. Gastrointestinal symptoms: Negative except as documented in HPI. Genitourinary symptoms: Negative except as documented in HPI. Musculoskeletal symptoms: Negative except as documented in HPI. Neurologic symptoms: Negative except as documented in HPI. Psychiatric symptoms: Negative except as documented in HPI. Endocrine symptoms: Negative except as documented in HPI. PFSH ED PFSH: Medical History (Updated 06/07/25 @ 13:18 by Rayne Bermudez MD) COPD (chronic obstructive pulmonary disease) Hx of fracture of wrist bilateral Liver cirrhosis Bipolar disorder Urethral stricture Discovered during gross hematuria work-up August 2020. Dilated and started SCIC for stricture patency maintenance. Cystitis cystica Gross hematuria HTN (hypertension) Hepatitis C CHF (congestive heart failure) Surgical History (Updated 02/21/24 @ 07:04 by Jorge Cohen MD) History of tonsillectomy H/O: hysterectomy History of liver biopsy H/O tubal ligation History of eyelid surgery Family History Mother , at age 68 Myocardial infarct CAD (coronary artery disease), Onset Age: 50 Diabetes Cancer throat Lung disease Father , at age 77 Myocardial infarct CAD (coronary artery disease), Onset Age: 50 Stroke Hypertension Parkinson disease Dementia Brother Lung disease Sister Lung disease Denies family history of Clotting disorder Chronic kidney disease (CKD) Suicide Anesthesia complication Bleeding disorder Social History Smoking and tobacco/nicotine status: current every day tobacco/nicotine user cigarettes Packs smoked per day: 0.5 Years cigarettes smoked: 40 [ Other cigarette details: Trying to quit] Quit status (tobacco/nicotine): has tried quititng Alcohol intake: never Marital status: / Current occupational status: retired Physical Exam Narrative: EXAM NARRATIVE: General: Alert, no acute distress. Skin: Warm, dry. Head: Normocephalic, atraumatic. Neck: Supple, trachea midline. Eye: Extraocular movements are intact. Ears, nose, mouth and throat: mucosa moist. Cardiovascular: Regular, Normal peripheral perfusion. Respiratory: Lungs are clear to auscultation, respirations are non-labored, breath sounds are equal, Symmetrical chest wall expansion. Gastrointestinal: Soft, Nontender, Non distended Musculoskeletal: Normal ROM, no deformity. Right lower extremity with edema, erythema circumferentially and is very tender to palpation diffusely. Neurological: Alert and oriented, No focal neurological deficit observed. Psychiatric: Cooperative, appropriate mood & affect. Course Vital Signs: Vital signs: Vital Signs Temperature 98.3 F 06/07/25 11:18 Pulse Rate 65 06/07/25 11:18 Blood Pressure 115/60 06/07/25 11:18 Pulse Oximetry 97 06/07/25 11:18 Oxygen Delivery Me thod Room Air 06/07/25 11:18 MDM - Extremity (Nontraumatic) Medical Decision Making Medical decision making: Differential diagnosis including but not limited to and based on the above HPI, review of systems and physical exam: In this patient with redness and swelling of her lower extremity unilaterally would have concern for DVT versus cellulitis. Orders placed to evaluate differential diagnosis based on the above differential, HPI and physical exam Lab Review: Laboratory results were reviewed and interpreted by myself the emergency room physician. White count is just 8000 but is 82% left shifted which would point to bacterial infection. CRP is elevated at 88 and ESR is elevated at 28. Ultrasound lower extremity: No DVT. This was reviewed and interpreted by myself the emergency room physician. I also reviewed the radiology report. I reviewed the patient's medical record. 70-year-old female with history of COPD, cirrhosis, bipolar disorder, hypertension and congestive heart failure Reexamination: Patient remained stable. No increased work of breathing. No altered mental status. No focal motor deficits. Consultation: I spoke with Dr. Edwards who is on-call for the hospital service who agrees to admission. Assessment and plan: Cellulitis of the lower extremity ?IV vancomycin and cefepime. IV morphine. IV Zofran. -I discussed the patient with the hospitalist on-call who is admitting the patient. - Discussed findings and plan with patient. Answered any questions. - All laboratory values were reviewed and interpreted personally by myself, the ER physician - All imaging was reviewed and interpreted personally by myself, the ER physician. - Evaluation and treatment of this problem were appropriate in the emergency setting Lab Data 06/07/25 11:50 06/07/25 11:50 Radiology Impressions Venous Duplex 06/07/25 12:12 IMPRESSION: No evidence of deep vein thrombosis. Laboratory Results WBC 8.25 10^3/uL (3.29-11.43) 06/07/25 11:50 RBC 4.35 10^6/uL (3.85-5.65) 06/07/25 11:50 Hgb 13.00 g/dL (11.27-16.99) 06/07/25 11:50 Hct 39.9 % (36-47) 06/07/25 11:50 MCV 91.7 fl (85-98) 06/07/25 11:50 MCH 29.9 pg (27-33) 06/07/25 11:50 MCHC 32.6 g/dL (30-55) 06/07/25 11:50 RDW 14.4 % (12.1-15.1) 06/07/25 11:50 Plt Count 56 10^3/cmm (157-399) L 06/07/25 11:50 MPV 11.6 fL (7.4-10.4) H 06/07/25 11:50 Neut % (Auto) 81.9 % 06/07/25 11:50 Lymph % (Auto) 5.9 % 06/07/25 11:50 [place] % (Auto) 9.0 % 06/07/25 11:50 Eos % (Auto) 2.2 % 06/07/25 11:50 Baso % (Auto) 0.6 % 06/07/25 11:50 Neut # (Auto) 6.76 10^3/uL (1.8-7.7) 06/07/25 11:50 Lymph # (Auto) 0.5 10^3/uL (0.8-4.8) L 06/07/25 11:50 [place] # (Auto) 0.7 10^3/uL (0.2-0.9) 06/07/25 11:50 Eos # (Auto) 0.2 10^3/uL (0.0-0.8) 06/07/25 11:50 Baso # (Auto) 0.1 10^3/uL (0.0-0.1) 06/07/25 11:50 Nucleated RBC % (auto) 0 % 06/07/25 11:50 Nucleated RBCs # 0.0 /100WBC 06/07/25 11:50 ESR 28 mm/hr (0-15) H 06/07/25 11:50 Sodium 137 mmol/L (136-145) 06/07/25 11:50 Potassium 3.6 mmol/L (3.5-5.1) 06/07/25 11:50 Chloride 103 mmol/L (98-107) 06/07/25 11:50 Carbon Dioxide 25 mmol/L (22-29) 06/07/25 11:50 Anion Gap 12.6 (5-19) 06/07/25 11:50 BUN 17 mg/dL (8-23) 06/07/25 11:50 Creatinine 0.9 mg/dL (0.5-0.9) 06/07/25 11:50 GFR Calculation Not Reportable 06/07/25 11:50 Glucose 139 mg/dL (65-115) H 06/07/25 11:50 Calculated Osmolality 288 mOsm/kg (285-295) 06/07/25 11:50 Lactic Acid 1.4 mmol/L (0.5-2.2) 06/07/25 11:50 Calcium 8.5 mg/dL (8.5-10.5) 06/07/25 11:50 Total Bilirubin 1.0 mg/dL (0.15-1.2) 06/07/25 11:50 AST 35 U/L (0-32) H 06/07/25 11:50 ALT 7 U/L (0-33) 06/07/25 11:50 Alkaline Phosphatase 102 U/L (35-105) 06/07/25 11:50 C-Reactive Protein 87.5 mg/L (0.0-4.9) H 06/07/25 11:50 Total Protein 7.2 g/dL (6.6-8.7) 06/07/25 11:50 Albumin 3.3 g/dL (3.5-5.2) L 06/07/25 11:50 Globulin 3.9 g/dL (1.3-4.6) 06/07/25 11:50 All radiology interpretation(s) finalized by discharge Discharge Plan Discharge Patient Disposition: Admitted As Inpatient Clinical Impression: Cellulitis of lower leg Condition: Stable Coding Level of Care Code ED Market Development Trainer for Barbara Yoder
[2025-06-07 12:00] LABS: Hematocrit 39.9 % (36-47); Hemoglobin 13.00 g/dL (11.27-16.99); Mean Corpuscular HGB Conc 32.6 g/dL (30-55); Mean Corpuscular Hemoglobin 29.9 pg (27-33); Mean Corpuscular Volume 91.7 fl (85-98); Nucleated Red Blood Cells % 0 %; Platelet Count 56 10^3/cmm (157-399); Red Blood Count 4.35 10^6/uL (3.85-5.65); White Blood Count 8.25 10^3/uL (3.29-11.43)
--- NOTE | 2025-06-07 12:12 | USR_ITS ---
PROCEDURE INFORMATION: Exam: US Duplex Right Lower Extremity Veins, Limited Exam date and time: 06/07/2025 12:54 PM Age: 70 years old Clinical indication: Pain; Leg, upper and leg, lower; Right; Additional info: Right-sided calf pain and swelling. Concern for dvt TECHNIQUE: Imaging protocol: Real-time duplex ultrasound of the right extremity with 2-D figueroa scale, color Doppler flow and spectral waveform analysis including responses to compression and other maneuvers (when performed) with image documentation. Limited exam was focused on the right lower extremity veins. COMPARISON: CT kidney stone [id number] 08/16/2020 12:24 PM FINDINGS: Right deep veins: Unremarkable. The common femoral, femoral, proximal profunda femoral and popliteal veins are patent without thrombus. Normal Doppler waveforms. Normal compressibility and/or augmentation response. Superficial veins: Greater saphenous vein at the saphenofemoral junction is patent without thrombus. Soft tissues: Unremarkable. US/[place] [id number] IMPRESSION: No evidence of deep vein thrombosis.
[2025-06-07 12:15] LABS: Alanine Aminotransferase 7 U/L (0-33); Albumin Level 3.3 g/dL (3.5-5.2); Alkaline Phosphatase 102 U/L (35-105); Anion Gap 12.6 (5-19); Aspartate Amino Transferase 35 U/L (0-32); Blood Urea Nitrogen 17 mg/dL (8-23); Calcium 8.5 mg/dL (8.5-10.5); Carbon Dioxide 25 mmol/L (22-29); Chloride 103 mmol/L (98-107); Creatinine Clr Calc Pharmacy 56.3653; Globulin 3.9 g/dL (1.3-4.6); Glucose 139 mg/dL (65-115); Osmolality Calculated 288 mOsm/kg (285-295); Potassium 3.6 mmol/L (3.5-5.1); Sodium 137 mmol/L (136-145); Total Protein 7.2 g/dL (6.6-8.7)
[2025-06-07 12:16] LABS: Lactic Sepsis W/Reflex 1.4 mmol/L (0.5-2.2)
[2025-06-07] MEDS: ondansetron 2 mg/ML SDV 2 mL 4 MG IVP (14:15)
[2025-06-07] MEDS: morphine 4 mg/mL SDV 1 mL IVP (14:17)
[2025-06-07] MEDS: cefepime 2,000 mg SDV 2000 MG IVP (14:19)
--- NOTE | 2025-06-07 18:02 | PM.HP ---
Providers/Chief Complaint Admitting Physician: Jagjit Edwards MD Primary Care Provider: Ewelina Espinosa Chief Complaint: right foot pain swelling up to the knee History of Present Illness Bárbara Mayfield is a 70 year old female with history of hep C cirrhosis, hypersplenism with thrombocytopenia tobacco abuse with COPD who states she had gone to [place] to To visit and came back with leg swelling this was acutely painful and red in the emergency department and she was aggressively treated with vancomycin and cefepime. Ultrasound was done which showed no DVT Review of Systems Narrative: General No fevers chills Cardiovascular no chest pain or palpitation Respiratory no shortness of breath cough wheezing Musculoskeletal she had redness and pain in the right leg which has improved since emergency department Medications/Allergies Home Medications ?Medication ?Instructions ?Recorded ?Confirmed ?Last Taken ?Type albuterol sulfate 90 mcg/actuation 2 puff inhalation Q6H PRN 06/01/20 06/07/25 Unknown History aerosol inhaler (Ventolin HFA) Shortness Of Breath Or Wheezing potassium chloride 10 mEq 10 meq PO DAILY 06/01/20 06/07/25 06/07/25 08:30 History tablet,extended release alprazolam 0.25 mg tablet 0.25 mg PO DAILY 08/02/21 06/07/25 06/07/25 08:00 History levothyroxine 100 mcg capsule 100 mcg PO DAILY 08/02/21 06/07/25 06/07/25 07:30 History pregabalin 100 mg capsule 100 mg PO BID 08/02/21 06/07/25 06/07/25 08:30 History buspirone 5 mg tablet 5 mg PO TID 05/02/22 06/07/25 06/07/25 08:00 History furosemide 20 mg tablet 20 mg PO DAILY #90 tabs 06/02/22 06/07/25 06/07/25 08:30 Rx albuterol sulfate 2.5 mg/0.5 mL 10 mg inhalation Q4H PRN Shortness 07/06/22 06/07/25 Unknown History solution for nebulization Of Breath Or Wheezing carbidopa 25 mg-levodopa 100 mg 1 tab PO TID 08/15/23 06/07/25 06/07/25 08:00 History tablet sertraline 100 mg tablet 100 mg PO DAILY 08/15/23 06/07/25 06/07/25 08:00 History triamcinolone acetonide 0.1 % 1 applic topical BID 01/03/24 06/07/25 06/06/25 History topical cream isosorbide mononitrate 30 mg See Rx Instructions .Route 03/12/24 06/07/25 06/07/25 08:30 Rx tablet,extended release 24 hr .COMPLEX #45 tabs nitroglycerin 0.4 mg sublingual See Rx Instructions .Route 07/28/24 06/07/25 Unknown Rx tablet .COMPLEX #25 tabs hydroxyzine HCl 25 mg tablet 25 mg PO TID 06/07/25 06/07/25 06/07/25 08:30 History levocetirizine 5 mg tablet 5 mg PO BEDTIME 06/07/25 06/07/25 06/06/25 20:00 History Allergies Allergy/AdvReac Type Severity Reaction Status Date / Time sulfur dioxide Allergy Severe ADR-Itching Verified 06/07/25 11:25 /SOB codeine Allergy Unknown Unknown Verified 06/07/25 11:25 Iodinated Contrast Media Allergy Unknown Unknown Verified 06/07/25 11:25 Penicillins Allergy Unknown Unknown Verified 06/07/25 11:25 acetaminophen (From Allergy rash Verified 06/07/25 11:25 Darvocet-N) erythromycin base Allergy rash Verified 06/07/25 11:25 propoxyphene (From Allergy rash Verified 06/07/25 11:25 Darvocet-N) PFSH Acute PFSH: Medical History (Updated 06/07/25 @ 13:18 by Rayne Bermudez MD) COPD (chronic obstructive pulmonary disease) Hx of fracture of wrist bilateral Liver cirrhosis Bipolar disorder Urethral stricture Discovered during gross hematuria work-up August 2020. Dilated and started SCIC for stricture patency maintenance. Cystitis cystica Gross hematuria HTN (hypertension) Hepatitis C CHF (congestive heart failure) Surgical History (Updated 02/21/24 @ 07:04 by Jorge Cohen MD) History of tonsillectomy H/O: hysterectomy History of liver biopsy H/O tubal ligation History of eyelid surgery Family History Mother , at age 68 Myocardial infarct CAD (coronary artery disease), Onset Age: 50 Diabetes Cancer throat Lung disease Father , at age 77 Myocardial infarct CAD (coronary artery disease), Onset Age: 50 Stroke Hypertension Parkinson disease Dementia Brother Lung disease Sister Lung disease Denies family history of Clotting disorder Chronic kidney disease (CKD) Suicide Anesthesia complication Bleeding disorder Social History (Updated 06/07/25 @ 18:07 by Jagjit Edwards MD) Smoking and tobacco/nicotine status: current every day tobacco/nicotine user cigarettes Packs smoked per day: 0.5 Years cigarettes smoked: 40 [ Other cigarette details: Trying to quit] Quit status (tobacco/nicotine): has tried quititng Alcohol intake: former Year of sobriety/quit date alcohol: 2021 Substance/Drug Use: never Additional social history: She wants full CODE STATUS but no prolong life support as discussed on 06/07/2025 with Jagjit Edwards MD Marital status: / Current occupational status: retired Vitals/I&O/Wt Last Vital Signs Temp 98.3 F 06/07/25 11:18 Pulse 120 H 06/07/25 14:35 Resp 16 06/07/25 14:17 BP 93/72 06/07/25 14:35 Pulse Ox 94 06/07/25 14:35 O2 Del Method Room Air 06/07/25 16:00 06/07/25 06/07/25 06/07/25 06:59 14:59 22:59 Intake Total 400 / 400 Balance 400 / 400 Weight last 48 hrs Weight 78.88 kg Weight 79.379 kg Physical Exam Narrative: General Well-developed well-nourished female in no acute cardiopulmonary stress CV regular rate and rhythm Lungs clear to auscultation bilaterally Abdomen positive bowel tones soft nontender Calves right side is enlarged compared to the left and there is erythema from ankle to just below the knee Extremity: NARRATIVE EXTREMITY EXAM: Data 06/07/25 11:50 06/07/25 11:50 Micro: Microbiology 06/07/25 11:52 Blood Culture - Preliminary Blood SPECIMEN COLLECTED 06/07/25 11:50 Blood Culture - Preliminary Blood SPECIMEN COLLECTED A&P Assessment and plan 1. Cellulitis of lower leg: Patient had rapid onset of erythema and swelling with tenderness and pain consistent with strep. This responded to vancomycin and cefepime broad coverage but I am going to simplify this to cefazolin strep coverage. If she continues to do well as I have drawn borders then she can go home on Keflex in the next 1 to 2 days. She is admitted to observation 2. Liver cirrhosis: As above at high risk for strep infection 3. Thrombocytopenia: Stable recheck CBC in the morning 4. Smoking addiction: Start nicotine patch 14 mg daily PDMP PDMP Reviewed: Not Reviewed Attestations Medical Necessity Statement*: Patient mid to the hospital and will require anticipated 1-2 midnights Coding Level of Care Code 03789 Diagnoses Cellulitis of lower leg L03.119 Liver cirrhosis K74.60 Thrombocytopenia D69.6 Smoking addiction F17.200 Time Spent (min) 55
--- NOTE | 2025-06-07 19:29 | PC.NURSE ---
Patient refused evening lovenox due to liver issues and platlet counts being low. She would like to talk to the doctor tomorrow about the medication and if it is ok to take.
[2025-06-07] MEDS: oxyCODONE 5 mg IR Tab/Cap PO (20:48)
[2025-06-07] MEDS: carbidopa-levodopa 25-100mg Tablet 1 EACH PO (20:51)
[2025-06-07] MEDS: efferdent effervescent 1 EACH DENTAL (23:16)
[2025-06-08] VITALS (10 sets, daily range): BP systolic 96–153; BP diastolic 56–87; PULSE 56–66; RESP 14–19; TEMP 36.4–36.7; O2SAT 92–97
[2025-06-08 04:27] LABS: Hematocrit 38.4 % (36-47); Hemoglobin 12.30 g/dL (11.27-16.99); Mean Corpuscular HGB Conc 32.0 g/dL (30-55); Mean Corpuscular Hemoglobin 29.8 pg (27-33); Mean Corpuscular Volume 93.0 fl (85-98); Nucleated Red Blood Cells % 0 %; Platelet Count 64 10^3/cmm (157-399); Red Blood Count 4.13 10^6/uL (3.85-5.65); White Blood Count 5.12 10^3/uL (3.29-11.43)
[2025-06-08] MEDS: oxyCODONE 5 mg IR Tab/Cap PO ×3 (04:57→22:08)
--- NOTE | 2025-06-08 05:56 | PC.NURSE ---
Cefazolin order a post op order and unable to pull from pyxis. Nurse attempted to contact Dr. Boyce to get the order corrected but received no answer. Medication non administered due to this and will be passed on to day time nurse.
[2025-06-08] MEDS: carbidopa-levodopa 25-100mg Tablet 1 EACH PO ×3 (08:33→20:56)
[2025-06-08] MEDS: ceFAZolin 2,000 mg SDV 2000 MG IVP ×3 (08:35→23:23)
--- NOTE | 2025-06-08 09:56 | PC.CHAP ---
Pastoral Care Encounter/Spiritual Assessment Type of Contact [] Declined typesetter perforator operator visit [] Patient/Family/Request visit [] Outpatient visit [] Follow-up visit [] Physician referral [] Code/Alert [x] Routine visit [] Staff referral [] Actively dying [] Patient sleeping [] Family support [] [] Out of room [] Palliative care [] [] Receiving care in room [] Pre-surgical visit [] Trauma [] Long length of stay [] ICU visit [] Other: Relational/Emotional Strength [] Patient feels connected with others/family/visitors/staff [] Distress [] Loneliness/isolation [] Abandonment Spirituality of Patient [x] Person of [place] [x] Attends Sabianism of their [place] [x] Believes in Prayer [] Reads Bible or Yazdanism materials [] There are Spiritual issues to be addressed Contact Lens Inspector Interventions [x] Prayer [x] Active listening [] Non-anxious presence [] Spiritual/emotional support [] Crisis/trauma care [] Spiritual counseling [] Bereavement support [] Provided bereavement packet [x] Provided Bible/devotional materials [] Provided toy/stuffed animal, coloring book to patient or family member [] Provided Communion [] Anointing/[place] [] Salvation [x] Completed spiritual assessment [] Other: Impact on Illness or Injury [] Angry [] Fearful [] Anxious [] Often cries [] Exhaustion [] Unable to work [] Unable to attend sikh [] Unable to walk/stand [] Unable to read [] Unable to drive [] Unable to eat/drink [] Unable to sleep [] Unable to be with family [] Patient intubated [] Other: Summary Time spent with patient 20 min
--- NOTE | 2025-06-08 11:41 | P.PN_ITS ---
Subjective 2 Subjective: Hospital course, labs appreciated. Today morning patient seen laying comfortably in bed. States she is feeling better. Complaining of itching all over her body which she states has been ongoing for last 5 years. Denies any nausea, vomiting, headache. Vitals/I&O/Wt Last Vital Signs Temp 98.1 F 06/08/25 07:16 Pulse 59 L 06/08/25 08:23 Resp 18 06/08/25 08:23 BP 103/59 06/08/25 07:16 Pulse Ox 92 06/08/25 08:23 O2 Del Method Room Air 06/08/25 08:23 06/07/25 06/08/25 06/08/25 22:59 06:59 14:59 Intake Total 640 / 640 240 / 240 Output Total 250 / 250 300 / 550 Balance 390 / 390 -300 / 90 240 / 240 Weight last 48 hrs Weight 79.152 kg Weight 79.152 kg Weight 78.88 kg Weight 79.379 kg Physical Exam 2 Narrative: General Well-developed well-nourished female in no acute cardiopulmonary stress CV regular rate and rhythm Lungs clear to auscultation bilaterally Abdomen positive bowel tones soft nontender Calves right side is enlarged compared to the left and there is erythema from ankle to just below the knee Skin: OTHER: Data 06/08/25 03:53 06/07/25 11:50 Micro: Microbiology 06/07/25 11:52 Blood Culture - Preliminary Blood SPECIMEN COLLECTED 06/07/25 11:50 Blood Culture - Preliminary Blood SPECIMEN COLLECTED A&P Assessment and plan 1. Cellulitis of lower leg: Seems to be improving. Check MRSA swab. Continue with cefazolin for now. Add vancomycin. If MRSA swab negative will discontinue vancomycin. Follow-up blood cultures. 2. Liver cirrhosis: In setting of untreated hepatitis C associated with thrombocytopenia. Monitor CMP daily. Check hepatitis panel. Will refer to ID as an outpatient for treatment for hepatitis C. Patient is agreeable. 3. Thrombocytopenia: Stable. Monitor. 4. Smoking addiction: Start nicotine patch 14 mg daily Plan: Continue other chronic home medications including Xanax, BuSpar, carbidopa/levodopa, hydroxyzine pregabalin, sertraline. Goal blood pressure less than 140/90 [place]. Continue with home dose of Imdur. Uptitrate as for goal blood pressure. Full code Cardiac diet Lovenox for DVT prophylaxis Protonix for PUD prophylaxis PDMP PDMP Reviewed: Not Reviewed Attestations 2 Medical Necessity Statement*: Requires further hospitalization for management of cellulitis of lower leg Diagnoses Cellulitis of lower leg L03.119 Liver cirrhosis K74.60 Thrombocytopenia D69.6 Smoking addiction F17.200
[2025-06-08 12:01] LABS: Estmated Average Glucose 94; Hemoglobin A1C 4.9 % (4.0-6.0)
[2025-06-08 12:25] LABS: Procalcitonin 0.22 ng/mL (0-0.5); Thyroid Stimulating Hormone 1.99 uIU/mL (0.27-4.20); Vitamin B12 488 pg/mL (232-1245)
--- NOTE | 2025-06-08 12:29 | PHA.VACGOAL ---
Vancomycin Goal - Goal Vancomycin Goal:: 10-15 mg/L Vancomycin Indication:: SSTI - Therapy Current therapy:: Cefazolin Day of therpy:: Day []of [] . Actual body weight (kg): 174 lb 8 oz - Data Labs: WBC 5.12 10^3/uL (3.29-11.43) 06/08/25 03:53 RBC 4.13 10^6/uL (3.85-5.65) 06/08/25 03:53 Hgb 12.30 g/dL (11.27-16.99) 06/08/25 03:53 Hct 38.4 % (36-47) 06/08/25 03:53 MCV 93.0 fl (85-98) 06/08/25 03:53 MCH 29.8 pg (27-33) 06/08/25 03:53 MCHC 32.0 g/dL (30-55) 06/08/25 03:53 RDW 14.5 % (12.1-15.1) 06/08/25 03:53 Sodium 137 mmol/L (136-145) 06/07/25 11:50 Potassium 3.6 mmol/L (3.5-5.1) 06/07/25 11:50 Chloride 103 mmol/L (98-107) 06/07/25 11:50 Carbon Dioxide 25 mmol/L (22-29) 06/07/25 11:50 Anion Gap 12.6 (5-19) 06/07/25 11:50 BUN 17 mg/dL (8-23) 06/07/25 11:50 Creatinine 0.9 mg/dL (0.5-0.9) 06/07/25 11:50 GFR Calculation Not Reportable 06/07/25 11:50 Last dialysis session:: N/A Drug administration history:: Medications Cefazolin Sodium (Cefazolin 2,000 Mg Sdv) 2,000 mg IVP Q8H MACKENZIE; Protocol Last Admin: 06/08/25 08:35 Dose: 2,000 mg Discontinued Medications Cefepime HCl (Cefepime 2,000 Mg Sdv) 2,000 mg IVP ONCE STA; Protocol Stop: 06/07/25 13:13 Last Admin: 06/07/25 14:19 Dose: 2,000 mg Vancomycin HCl (Vancocin) 2,000 mg in 400 mls @ 200 mls/hr IV ONCE ONE; Protocol Stop: 06/07/25 15:11 Last Admin: 06/07/25 16:42 Dose: Infused Treatment plan:: new consult Regimen:: 2000 MG WAS GIVEN 06/07/25 IN ER AT 1421. STARTED MAINTENANCE DOSE OF 750 MG Q12H. Follow up:: WILL CONTINUE TO MONITOR DAILY AND PLAN TO DRAW TROUGH PRIOR TO 5TH DOSE.
[2025-06-08 12:36] LABS: Iron 61 ug/dL (37-145); Total Iron Binding Capacity 157 mcg/dl; Unsaturated Iron Binding 96 ug/dL (112-347)
[2025-06-08 13:16] LABS: Hepatitis A Antibody IgM Non-Reactive (Nonreactive); Hepatitis B Surface Antigen Non-Reactive (Nonreactive)
[2025-06-08 14:01] LABS: MRSA PCR OZH (swab) NOT DETECTED (Not Detecte)
[2025-06-08] MEDS: pantoprazole 40 mg SDV IVP (15:10)
--- NOTE | 2025-06-08 18:19 | PC.NURSE ---
When I took over care for patient, I noted that she had tele monitor at bedside and she was unsure if she was supposed to have it on. I verified and there was no order placed, so I spoke with Dr. Ashraf and he provided a verbal order for telemetry monitoring. Order placed and tele placed on patient as ordered.
[2025-06-09 04:00] VITALS: BP 125/77; PULSE 57; RESP 16; O2SAT 91
[2025-06-09 05:19] LABS: Hematocrit 35.9 % (36-47); Hemoglobin 11.60 g/dL (11.27-16.99); Mean Corpuscular HGB Conc 32.3 g/dL (30-55); Mean Corpuscular Hemoglobin 30.1 pg (27-33); Mean Corpuscular Volume 93.2 fl (85-98); Nucleated Red Blood Cells % 0 %; Platelet Count 63 10^3/cmm (157-399); Red Blood Count 3.85 10^6/uL (3.85-5.65); White Blood Count 3.54 10^3/uL (3.29-11.43)
[2025-06-09 05:30] VITALS: RESP 16
[2025-06-09] MEDS: oxyCODONE 5 mg IR Tab/Cap PO (05:30)
[2025-06-09] MEDS: ceFAZolin 2,000 mg SDV 2000 MG IVP (05:31)
[2025-06-09 05:46] LABS: Alanine Aminotransferase 6 U/L (0-33); Albumin Level 2.9 g/dL (3.5-5.2); Alkaline Phosphatase 89 U/L (35-105); Anion Gap 12.1 (5-19); Aspartate Amino Transferase 32 U/L (0-32); Blood Urea Nitrogen 16 mg/dL (8-23); Calcium 8.0 mg/dL (8.5-10.5); Carbon Dioxide 25 mmol/L (22-29); Chloride 107 mmol/L (98-107); Creatinine Clr Calc Pharmacy 63.3199; Globulin 3.7 g/dL (1.3-4.6); Glucose 105 mg/dL (65-115); Osmolality Calculated 292 mOsm/kg (285-295); Potassium 4.1 mmol/L (3.5-5.1); Sodium 140 mmol/L (136-145); Total Protein 6.6 g/dL (6.6-8.7)
[2025-06-09 05:47] LABS: Cholesterol 127 mg/dL (0-200); HDL Cholesterol 28 mg/dL (60-100); Magnesium 1.8 mg/dL (1.7-2.3); Triglycerides 80 mg/dL (0-150); VLDL Cholestrol Calculation 16 mg/dL (0-30)
[2025-06-09 07:14] VITALS: BP 122/62; PULSE 59; RESP 18; TEMP 36.8; O2SAT 94
[2025-06-09 07:48] VITALS: PULSE 60; RESP 16; O2SAT 95
[2025-06-09] MEDS: pantoprazole 40 mg SDV IVP (08:39)
[2025-06-09] MEDS: carbidopa-levodopa 25-100mg Tablet 1 EACH PO (08:40)
--- NOTE | 2025-06-09 08:44 | P.DS_ITS ---
Discharge Providers 2 Date of Admission: 06/07/25 13:25 Date of Discharge: June 09, 2025 Attending Provider at Admission: Jagjit Edwards MD Attending Provider at Discharge: John Ashraf MD Primary Care Provider: Ewelina Espinosa Diagnoses at Discharge Discharge Diagnosis 1. Cellulitis of lower le. Liver cirrhosis: 3. Thrombocytopenia: 4. Smoking addiction: Reason for Visit 2 Reason for Visit: right foot pain swelling up to the knee Brief History: Bárbara Mayfield is a 70 year old female with history of hep C cirrhosis, hypersplenism with thrombocytopenia tobacco abuse with COPD who states she had gone to [place] to To visit and came back with leg swelling this was acutely painful and red in the emergency department and she was aggressively treated with vancomycin and cefepime. Ultrasound was done which showed no DVT Hospital Course Hospital Course She was stated on broad spectrum Abx for cellulitis to which she responded well. Blood cultures remained negative. She is discharged on cefdinir BID for 7 days with advice to f/u with PCP in 1 week, ID clinic for Hep C treatment. Physical Exam 2 Narrative: General Well-developed well-nourished female in no acute cardiopulmonary stress CV regular rate and rhythm Lungs clear to auscultation bilaterally Abdomen positive bowel tones soft nontender Calves right side is enlarged compared to the left and there is erythema from ankle to just below the knee Skin: OTHER: Discharge Data Studies Completed and Pending Completed Studies During Hospitalization Category Date Time Status US venous duplex lower extremity RT [CV venous duplex Ultrasound 06/07/25 12:12 [place] [id number]] Stat Pending at discharge Category Date Time Status Blood Culture Stat Lab 06/07/25 11:52 Results Hepatitis C RNA Viral Load Qnt Routine Lab 06/08/25 14:01 Received MAG [Magnesium] AM LABS Lab 06/10/25 04:00 Ordered MAG [Magnesium] AM LABS Lab 06/11/25 04:00 Ordered Vancomycin Trough Timed Lab 06/10/25 11:30 Ordered Radiology Impressions Venous Duplex 06/07/25 12:12 IMPRESSION: No evidence of deep vein thrombosis. Microbiology 06/07/25 11:52 Blood Blood Culture - Preliminary NEGATIVE TO DATE 06/07/25 11:50 Blood Blood Culture - Preliminary NEGATIVE TO DATE Laboratory Results WBC 3.54 10^3/uL (3.29-11.43) 06/09/25 04:36 RBC 3.85 10^6/uL (3.85-5.65) 06/09/25 04:36 Hgb 11.60 g/dL (11.27-16.99) 06/09/25 04:36 Hct 35.9 % (36-47) L 06/09/25 04:36 MCV 93.2 fl (85-98) 06/09/25 04:36 MCH 30.1 pg (27-33) 06/09/25 04:36 MCHC 32.3 g/dL (30-55) 06/09/25 04:36 RDW 14.1 % (12.1-15.1) 06/09/25 04:36 Plt Count 63 10^3/cmm (157-399) L 06/09/25 04:36 MPV 11.6 fL (7.4-10.4) H 06/09/25 04:36 Neut % (Auto) 61.1 % 06/09/25 04:36 Lymph % (Auto) 14.1 % 06/09/25 04:36 Real % (Auto) 17.2 % 06/09/25 04:36 Eos % (Auto) 6.2 % 06/09/25 04:36 Baso % (Auto) 1.1 % 06/09/25 04:36 Neut # (Auto) 2.16 10^3/uL (1.8-7.7) 06/09/25 04:36 Lymph # (Auto) 0.5 10^3/uL (0.8-4.8) L 06/09/25 04:36 Real # (Auto) 0.6 10^3/uL (0.2-0.9) 06/09/25 04:36 Eos # (Auto) 0.2 10^3/uL (0.0-0.8) 06/09/25 04:36 Baso # (Auto) 0.0 10^3/uL (0.0-0.1) 06/09/25 04:36 Nucleated RBC % (auto) 0 % 06/09/25 04:36 Nucleated RBCs # 0.0 /100WBC 06/09/25 04:36 ESR 28 mm/hr (0-15) H 06/07/25 11:50 Sodium 140 mmol/L (136-145) 06/09/25 04:36 Potassium 4.1 mmol/L (3.5-5.1) 06/09/25 04:36 Chloride 107 mmol/L (98-107) 06/09/25 04:36 Carbon Dioxide 25 mmol/L (22-29) 06/09/25 04:36 Anion Gap 12.1 (5-19) 06/09/25 04:36 BUN 16 mg/dL (8-23) 06/09/25 04:36 Creatinine 0.8 mg/dL (0.5-0.9) 06/09/25 04:36 GFR Calculation Not Reportable 06/09/25 04:36 Glucose 105 mg/dL (65-115) 06/09/25 04:36 Estimat Average Glucose 94 06/08/25 03:53 Hemoglobin A1c 4.9 % (4.0-6.0) 06/08/25 03:53 Calculated Osmolality 292 mOsm/kg (285-295) 06/09/25 04:36 Lactic Acid 1.4 mmol/L (0.5-2.2) 06/07/25 11:50 Calcium 8.0 mg/dL (8.5-10.5) L 06/09/25 04:36 Magnesium 1.8 mg/dL (1.7-2.3) 06/09/25 04:36 Iron 61 ug/dL (37-145) 06/08/25 03:53 TIBC 157 mcg/dl 06/08/25 03:53 % Saturation 38.8 % (20-50) 06/08/25 03:53 Unsat Iron Binding 96 ug/dL (112-347) L 06/08/25 03:53 Total Bilirubin 0.8 mg/dL (0.15-1.2) 06/09/25 04:36 AST 32 U/L (0-32) 06/09/25 04:36 ALT 6 U/L (0-33) 06/09/25 04:36 Alkaline Phosphatase 89 U/L (35-105) 06/09/25 04:36 C-Reactive Protein 87.5 mg/L (0.0-4.9) H 06/07/25 11:50 Total Protein 6.6 g/dL (6.6-8.7) 06/09/25 04:36 Albumin 2.9 g/dL (3.5-5.2) L 06/09/25 04:36 Globulin 3.7 g/dL (1.3-4.6) 06/09/25 04:36 Triglycerides 80 mg/dL (0-150) 06/09/25 04:36 Cholesterol 127 mg/dL (0-200) 06/09/25 04:36 LDL Cholesterol, Calc 83 mg/dL (50-129) 06/09/25 04:36 Total VLDL Cholesterol 16 mg/dL (0-30) 06/09/25 04:36 HDL Cholesterol 28 mg/dL (60-100) L 06/09/25 04:36 Cholesterol/HDL Ratio 4.54 mg/dL (0.0-4.40) H 06/09/25 04:36 Vitamin B12 488 pg/mL (232-1245) 06/08/25 03:53 Folate 7.0 ng/mL (4.8-37.3) 06/09/25 04:36 Procalcitonin 0.22 ng/mL (0-0.5) 06/08/25 03:53 TSH 1.99 uIU/mL (0.27-4.20) 06/08/25 03:53 Nasal MRSA (PCR) Not detected (Not Detecte) 06/08/25 12:39 Hepatitis A IgM Ab Non-reactive (Nonreactive) 06/08/25 03:53 Hep Bs Antigen Non-reactive (Nonreactive) 06/08/25 03:53 Hep Bs Antibody < 3.5 (11.5-1000) L 06/08/25 03:53 Hep B Core Total Ab Non-reactive (Nonreactive) 06/08/25 03:53 Hepatitis C Antibody Reactive (Nonreactive) H 06/08/25 03:53 Vitals Last Vital Signs Temp 98.2 F 06/09/25 07:14 Pulse 60 06/09/25 07:48 Resp 16 06/09/25 07:48 BP 122/62 06/09/25 07:14 Pulse Ox 95 06/09/25 07:48 O2 Del Method Room Air 06/09/25 07:48 Discharge Plan Discharge Patient Disposition: Home Health Service Condition: Stable Prescriptions: New cefdinir 300 mg capsule 300 mg PO BID 5 Days Qty: 10 0RF Continued albuterol sulfate [Ventolin HFA] 90 mcg/actuation HFA aerosol inhaler 2 puff INHALATION Q6H PRN (Reason: Shortness Of Breath Or Wheezing) potassium chloride 10 mEq tablet extended release 10 meq PO DAILY levothyroxine 100 mcg capsule 100 mcg PO DAILY pregabalin 100 mg capsule 100 mg PO BID alprazolam 0.25 mg tablet 0.25 mg PO DAILY buspirone 5 mg tablet 5 mg PO TID albuterol sulfate 2.5 mg/0.5 mL solution for nebulization 10 mg inhalation Q4H PRN (Reason: Shortness Of Breath Or Wheezing) triamcinolone acetonide 0.1 % cream 1 applic topical BID furosemide 20 mg tablet 20 mg PO DAILY Qty: 90 3RF isosorbide mononitrate 30 mg tablet extended release 24 hr See Rx Instructions .ROUTE .COMPLEX Qty: 45 3RF Dose Instruction: TAKE ONE HALF (1/2) TABLET BY MOUTH DAILY Rx Instructions: TAKE ONE HALF (1/2) TABLET BY MOUTH DAILY nitroglycerin 0.4 mg tablet, sublingual See Rx Instructions .ROUTE .COMPLEX Qty: 25 0RF Dose Instruction: DISSOLVE 1 TABLET UNDER TONGUE EVERY 5 MINUTES NEEDED FOR CHEST PAIN; DO NOT EXCEED 3 DOSES PER EPISODE. NEED APPOINTMENT Rx Instructions: DISSOLVE 1 TABLET UNDER TONGUE EVERY 5 MINUTES NEEDED FOR CHEST PAIN; DO NOT EXCEED 3 DOSES PER EPISODE. NEED APPOINTMENT sertraline 100 mg tablet 100 mg PO DAILY carbidopa-levodopa 25-100 mg tablet 1 tab PO TID hydroxyzine HCl 25 mg tablet 25 mg PO TID levocetirizine 5 mg tablet 5 mg PO BEDTIME Discharge Order = DC NOW: Discharge Order (Routine); Ordered 06/09/25 Ordered By: John Ashraf Referrals: Infectious Disease Group [facility] [Provider Group, Infectious Disease] - 1 month Referral Note: Hepatitis C We have notified your physician's clinic of the need for a follow-up appointment to be scheduled. If you have not heard from them within the next 2 business days, please call them directly. [facility] [Outside] Ewelina Espinosa [Primary Care Provider] - 06/22/25 9:00 am Discharge Diet: Cardiac Discharge Activity: Resume usual activity and Increase activity as tolerated Patient Instructions: Cellulitis, Cefdinir (By mouth), Opioid Safety, Patient Portal & Messi Instructions Activity Restrictions/Additional Instructions: Please follow-up with your primary care provider in the next 1 week. Cefdinir is the antibiotic which is supposed to take for next 5 days twice daily. Follow-up with infectious disease clinic as per the appointment scheduled for treatment of hepatitis C. Discharge Attestations 2 Time Spent in Discharge Care*: greater than 30 min Specific Discharge Activities: educating patient, discussing with pcp/other providers, discussing with returned case inspector/social workers/dc planners, documenting/other paperwork and evaluating patient/reviewing data Status at Discharge: Cognitive status at discharge: cognitively intact , B ehavioral status at discharge: cooperative , Functional status at discharge: i ndependent ambulation , Overall status at discharge: patient is progressing back to baseline Quality Metrics Clinical Quality Measures [ No reported AMI, CVA or VTE this stay] Coding Level of Care Code 01775 Total time (in minutes) for Discharge: 65 Diagnoses Cellulitis of lower leg L03.119 Liver cirrhosis K74.60 Thrombocytopenia D69.6 Smoking addiction F17.200
--- OUTSIDE RECORDS SUMMARY | 2025-06-09 10:34 | XMS_ITS | Encounter Summary ---
Author Organization [facility] Address [address] [place] [address] Care Team Providers Care Tester Electronic Scale Name Role Phone Dae Peacock MD Primary Care Provider [phone] Reason for Referral * Outpatient Services (Routine) - Closed Specialty Diagnoses / Procedures Referred By Contac t Referred To Contact Diagnoses 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) Procedures MRI ABDOMEN PELVIS W WO CONT Olivier Allen MD [address] [place] [address] Phone: tel: Referral ID Status Reason Start Date Expiration Date Visits Re quested Visits Authorized [id number] Closed 06/07/2011 06/06/2012 1 1 Encounter Details Date Type Department Care Team (Late st Contact Info) Description 06/07/2011 Ancillary Orders [facility] [place] [address] 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 ekp - uploaded from [employer] 06/08/2011 8:25 AM CDT Abdomen Pelvic MRI [...] trace pericholecystic fluid. ekp - uploaded from [employer] [facility] Olivier Allen MD MR ORDERABLES Final Result documented in this encounter Visit Diagnoses Diagnosis 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) Cirrhosis of liver without mention of alcohol 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) Cirrhosis of liver without mention of alcohol documented in this encounter Care Teams Tester Electronic Scale Relationship Specialty Start Date End Date Dae Peacock MD [facility] [address] [place] [address] PCP - General Family Practice 06/12/11 documented as of this encounter
--- OUTSIDE RECORDS SUMMARY | 2025-06-09 10:35 | XMS_ITS | Patient Health Record ---
Author Organization [employer] Address [address] [place] [address] Care Team Providers Care Case Briefer Name Role Phone Caden Haas Primary Care Provider Unavailab JOHN Webb Unavailable [phone] Clint Yuen Unavailable Unavailable GUSTAVO HOLLAND Unavailable [phone] Allergies Allergen (clinical drug ingredient) Drug/Non Drug [...] Status W/U Status Risk Notes Problem Cystitis (87714416) Other cystitis without hematuria (N30.80) Active confirmed Problem Urethral stricture (disorder) (94188792) Urethral stricture unspecified (N35.919) Active confirmed Problem Chronic cystitis (41530242) Chronic cystitis (N30.20) Active confirmed Problem Bladder diverticulum (232510568) Bladder diverticulum (N32.3) Active confirmed Problem Incomplete emptying of bladder (323556827) Incomplete emptying of bladder (R33.9) Active confirmed Plan Of Treatment No Information Insurance Providers Payer Name Payer Address Payer Phone Subscriber Number Group Number Insured Name Patient Relationship to Insured Coverage Start Date Coverage End Date [employer] Medicare Replacement [address] [place], [place] [id number] Bárbara Mayfield Self - patient is the insured Medical (General) History Medical History History ICD Code hep c anexiety hematuria incontinence COPD DDD Arthritis Surgical History Surgery Date(Month/Year) total hysterectomy' 1985 vein surgery nerve block Hospitalization History Reason Date(Month/Year) see above
--- OUTSIDE RECORDS SUMMARY | 2025-06-09 10:35 | XMS_ITS | Clinical Summary ---
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 Gender Identity Not on file Sexual [...] (#1) 2025 Medical Devices Implanted Type Area Maintenance Painter Device Identifier Shelf Expiration Date Model / Serial / Lot Log [id number] - Endoscopy Ligation - 1 - Ligator Band Super 7 [id number] Implanted:Qty: 1 on 08/24/2011 at [facility] Other Esophagus [employer] 04/24/2012 4225-40 / / [id number] Log [id number] - Endoscopy Ligation - 1 - Ligator Band Super 7 [id number] Implanted:Qty: 1 on 10/05/2011 at [facility] Other N/A: Esophagus [employer] 08/09/2012 4225-40 / [id number] / [id number] Description:[address] [employer] ACCESS PLUS Advance Directives For more information, please contact: [phone] * Full Code (Latest Code Status on File) Date Activated Date Inactivated Comments 10/05/2011 10:26 AM 10/05/2011 4:24 PM * Full Code Date Activated Date Inactivated Comments 08/24/2011 9:39 AM 08/25/2011 2:01 AM * Full Code Date Activated Date Inactivated Comments 06/14/2011 2:34 PM 06/14/2011 6:10 PM Care Teams Plastics Production Machine Operator Relationship Specialty Start Date End Date Dae Peacock MD [facility] [address] [place] [address] PCP - General Family Practice 06/12/11
--- OUTSIDE RECORDS SUMMARY | 2025-06-09 10:36 | XMS_ITS | Clinical Summary ---
Author Organization [facility] Address [address] Florezn: Epic Prelude ADT [place] [address] Care Team Providers Care Supervisor Shrimp Pond Name Role Phone Dae Peacock MD Primary Care Provider [phone] Allergies Active Allergy Reactions Criticality Noted Date [...] Encounters Date Type Department Care Team Description 06/08/2025 Results Follow-Up [facility] Gastroenter[facility] [address] Gladis Allen FNP CBC WITH DIFFERENTIAL, COMPREHENSIVE METABOLIC PANEL, ALPHA FETOPROTEIN TUMOR MARKER, Additional followed-up results: 9 06/04/2025 3:30 PM CDT Office Visit [facility] Gastroenterology[address] [place] [address] Gladis Allen FNP History of hepatitis C [...] on file 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 Gender Identity Not on file Sexual Orientation [...] Description 12/03/2025 2:00 PM CDT Office Visit [facility]- [place] [address] [facility] [address] [place] [address] Gladis Allen FNP [address] [facility] [address] [place] [address] Health Maintenance Due Date Last [...] years 1-dose series) 2013 OSTEOPOROSIS SCREENING 2018 [place] Prev entative Visit/Annual Wellness Visit 09/10/2024 INFLUENZA VACCINE (#1) 2025 Medical Devices Implanted Type Area Dragline Engineer Device Identifier Shelf Expiration Date Model / Serial / Lot Log [id number] - Endoscopy Ligation - 1 - Ligator Band Super 7 [id number] Implanted:Qty : 1 on 08/24/2011 Other Esophagus [employer] 04/24/2012 4225-40 / / [id number] Log [id number] - Endoscopy Ligation - 1 - Ligator Band Super 7 [id number] Implanted:Qty : 1 on 10/05/2011 Other N/A: Esophagus [employer] 08/09/2012 4225-40 / [id number] / [id number] Description:2 bands placed Procedures Procedure Name Priority Date/Time Associated Diagnosis Comments MITOCHONDRIAL ANTIBODY Routine 4:06 PM CDT History of hepatitis C HIV DETECTION W/REFLX CONFIRMATION Routine 06/04/2025 4:06 [...] C Abnormal results of liver function studies ALPHA FETOPROTEIN TUMOR MARKER Routine 06/04/2025 4:06 PM CDT History of hepatitis C Abnormal findings on diagnostic imaging of liver and biliary tract COMPREHENSIVE METABOLIC PANEL Routine 06/04/2025 4:06 PM CDT History of hepatitis C CBC WITH DIFFERENTIAL Routine 06/04/2025 4:06 PM CDT History of hepatitis C from Last 3 Months Results * HIV DETECTION W/REFLX CONFIRMATION (06/04/2025 4:06 PM CDT) [facility] RESULT HIV NEGATIVE [facility] [place] Comment: [facility] component Name and Code: HIV FINAL INTERPRETATION [[id number]] HIV-1 antigen and HIV-1/HIV-2 antibodies were not detected. There is no laboratory evidence of HIV infection. HIV-1/2 AG AND AB SCREEN NON-REACTIVE NON-REACT ERIC [facility] [place] Comment: Test Performed at: [facility] [place] [address] Jane Rizvi MD Blood 06/04/2025 4:06 PM CDT 06/04/2025 4:07 PM CDT Salvatrice Fetty VENEER SUPERVISOR CHEMISTRY ORDERABLES Final Result [facility] [phone] [facility] [place] [place] [address] * HEPATITIS B CORE AB TOTAL (06/04/2025 4:06 PM CDT) HEPATITIS B CORE AB NON-REACTI VE NON-REACTI VE [facility] Comment: For additional information, please refer to http://education.[employer]/faq/AHG230 (This link is being provided for informational/ educational purposes only.) FASTING:NO FASTING: NO Test Performed at: [facility] [place] [place] [address] Jane Rizvi MD Blood 06/04/2025 4:06 PM CDT 06/04/2025 4:07 PM CDT us Salvatrice Fetty VENEER SUPERVISOR CHEMISTRY ORDERABLES Final Result Performing Organization Address [facility]/ZIP Co de Phone Number [facility] [phone] [facility] [place] [address] * HEPATITIS B SURFACE AB, QUAL (06/04/2025 4:06 PM CDT) Pathologist [facility] HEPATITIS B SURFACE AB, QUAL NON-REACTI VE NON-REACTI VE [facility] Comment: FASTING:NO FASTING: NO Test Performed at: [facility] [address] [place] [address] Jane Rizvi MD Blood 06/04/2025 4:06 PM CDT 06/04/2025 4:07 PM CDT FreeChargeatrice Fetty VENEER SUPERVISOR CHEMISTRY ORDERABLES Final Result Performing Organization Address [facility] Co de Phone Number [facility] [phone] [facility] [place] [address] * (ABNORMAL) HEPATITIS C RNA PCR, QUANTITATIVE (06/04/2025 4:06 PM CDT) [facility] HCV RNA, QUANT REAL TIME PCR [id number](H) IU/mL [facility], HCV RNA QUANT PCR COPIES IU/ML 6.69(H) Log IU/mL [facility], Comment: REFERENCE RANGE: NOT DETECTED IU/mL NOT DETECTED Log IU/mL For additional information, please refer to http://education.[employer]/faq/KQV65y1 (This link is being provided for informational/ educational purposes only.) FASTING:NO FASTING: NO Test Performed at: [facility], [address] [place] [place] [address] Wendy Taylor MD,PhD,CARINA Blood 06/04/2025 4:06 PM CDT 06/04/2025 4:[address] [facility] CHEMISTRY ORDERABLES Final Result Performing Organization Address [facility] de Phone Number [facility] [phone] [facility], [address] [place] [address] * HEPATITIS B SURFACE ANTIGEN (06/04/2025 4:06 PM CDT) [facility] HEPATITIS B SURFACE AG NON-REACTI VE NON-REACTI VE [facility] Comment: For additional information, please refer to http://education.[employer]/faq/LJV088 (This link is being provided for informational/ educational purposes only.) Test Performed at: [facility] [address] [place] [address] Jane Rizvi MD Blood 06/04/2025 4:06 PM CDT 06/04/2025 4:07 PM CDT [facility] CHEMISTRY ORDERABLES Final Result Performing Organization Address [facility] de Phone Number [facility] [phone] [facility] [place] [address] [place] [address] [place] [address] * MITOCHONDRIAL ANTIBODY (06/04/2025 4:06 PM CDT) [facility] MITOCHONDRIAL AB <20.[address] [facility], Comment: Reference Range: NEGATIVE: < OR = 20.0 EQUIVOCAL: 20.1-24.9 POSITIVE: > OR = 25.0 FASTING:NO FASTING: NO Test Performed at: [facility], [address] [place] [address] Wendy Taylor MD,PhD,CARINA Blood 06/04/2025 4:06 PM CDT 06/04/2025 4:07 PM CDT Salvatrice Fetty VENEER SUPERVISOR CHEMISTRY ORDERABLES Final Result Performing Organization Address [facility] Co de Phone Number [facility] [phone] [facility], [address] [place] [address] * HEPATITIS C GENOTYPE (06/04/2025 4:06 PM CDT) HEPATITIS C GENOTYPE 1a [facility], Comment: REFERENCE RANGE: NOT DETECTED The methods used in this test are RT-PCR and DNA Sequencing of the 5' UTR and core region of the HCV genome. For additional information, please refer to http://education.[employer]/faq/HCVGenotyping (This link is being provided for informational/ educational purposes only.) This test was developed and its analytical performance characteristics have been determined by [facility]. It has not been cleared or approved by the FDA. This assay has been validated pursuant to the CLIA regulations and is used for clinical purposes. FASTING:NO FASTING: NO Test Performed at: [facility], [address] [place] [address] Wendy Taylor MD,PhD,CARINA Blood 06/04/2025 4:06 PM CDT 06/04/2025 4:07 PM CDT Salvatrice Fetty VENEER SUPERVISOR CHEMISTRY ORDERABLES Final Result Performing Organization Address [facility] Co de Phone Number [facility] [phone] [facility], [address] [place] [address] * HEPATITIS A IGM (06/04/2025 4:06 PM CDT) HEPATITIS A IGM NON-REACTI VE NON-REACTI VE [facility] Comment: For additional information, please refer to http://education.[employer]/faq/YBZ216 (This link is being provided for informational/ educational purposes only.) FASTING:NO FASTING: NO Test Performed at: [facility] [place] [address] [place] [address] Jane Rizvi MD Blood 06/04/2025 4:06 PM CDT 06/04/2025 4:07 PM CDT Salvatrice Fetty VENEER SUPERVISOR CHEMISTRY ORDERABLES Final Result [facility] [phone] [facility] [place] [address] [facility] [place] [address] * (ABNORMAL) ALPHA FETOPROTEIN TUMOR MARKER (06/04/2025 4:06 PM CDT) Pathologist [facility] ALPHA FETOPROTEIN TUMOR MARKER 6.9(H) ng/mL [facility] mandy Dawn Comment: Reference Range: <6.1 The use of AFP as a tumor marker in females is not recommended. This test was performed using the Lupe Kadoka chemiluminescent method. Values obtained from different assay methods cannot be used interchangeably. AFP levels, regardless of value, should not be interpreted as absolute evidence of the presence or absence of disease. FASTING:NO FASTING: NO Test Performed at: [facility] [address] Myke Martinez Blood 06/04/2025 4:06 PM CDT 06/04/2025 4:07 PM CDT [facility] VENEER SUPERVISOR CHEMISTRY ORDERABLES Final Result Performing Organization Address City/[facility]/ZIP Co de Phone Number [facility] [phone] [facility] [address] [place] [address] * (ABNORMAL) CBC WITH DIFFERENTIAL (06/04/2025 4:06 PM CDT) [facility] WBC 8.0 3.8 - 10.8 Thousand/u L [...] 33.3 32.0 - 36.0 g/dL [facility] Comment: For adults, a slight decrease [...] 140 - 400 Thousand/u L [facility] Comment: Verified by repeat analysis. MPV 11.4 7.5 - 12.5 fL [facility] [place] [facility] NEUTROPHIL ABSOLUTE 6,768 1,500 - 7,800 cells/uL [facility] [place] [facility] LYMPHOCYTE ABSOLUTE 400(L) 850 - 3,900 cells/uL [facility] [place] [facility] MONOCYTE ABSOLUTE 696 200 - 950 cells/uL [facility] EOSINOPHIL ABSOLUTE 88 15 - 500 cells/uL [facility] BASOPHILS ABSOLUTE 48 0 - 200 cells/uL [facility] [place] [facility] NEUTROPHIL 84.6 % [facility] [place] [facility] LYMPHOCYTES 5.0 % [facility] [place] [facility] MONOCYTE 8.7 % [facility] [place] [facility] EOSINOPHILS 1.1 % [facility] [place] [facility] BASOPHILS 0.6 % [facility] [place] [facility] COMMENT HEMATOLOGY [facility] Comment: Red cell morphology appears unremarkable Review of the peripheral smear reveals decreased numbers of platelets. Slide review performed at: [facility] [place] [address] [place] [address] Bowling Ball Assembler: Jane Rizvi M.D [facility] [id number] FASTING:NO FASTING: NO Test Performed at: [facility] [address] [place] [address] Mukesh Stacy Blood 06/04/2025 4:06 PM CDT 06/04/2025 4:07 PM CDT Jonesatriczechariah Fetty VENEER SUPERVISOR HEMATOLOGY ORDERABLES Final Result Performing Organization Address City/[facility] Co de Phone Number [facility] [phone] [facility] [address] [place] [address] * (ABNORMAL) PROTIME-INR (06/04/2025 4:06 PM CDT) INR 1.2(H) [facility] Comment: Reference Range 0.9-1.1 Moderate-intensity Warfarin Therapy 2.0-3.0 Higher-intensity Warfarin Therapy 3.0-4.0 PROTIME 12.1(H) 9.0 - 11.5 sec [facility] Comment: For additional information, please refer to http://education.[employer]/faq/FWG699 (This link is being provided for informational/ educational purposes only.) FASTING:NO FASTING: NO Test Performed at: [facility] [address] [place] [address] Mukesh Stacy Blood 06/04/2025 4:06 PM CDT 06/04/2025 4:07 PM CDT Jonesatrice Fetty VENEER SUPERVISOR HEMATOLOGY ORDERABLES Final Result Performing Organization Address City/[facility] Co de Phone Number [facility] [phone] [facility] [address] [place] [address] * (ABNORMAL) COMPREHENSIVE METABOLIC PANEL (06/04/2025 4:06 PM CDT) GLUCOSE 94 65 - 139 mg/dL [facility] Comment: Non-fasting reference interval BUN 12 7 - 25 mg/dL [facility] CREATININE 0.76 0.60 - 1.00 mg/dL [facility] RR GFR 83 > OR = 60 mL/min/1. 73m2 [facility] RR BUN/CREAT RATIO SEE NOTE: 6 - 22 (calc) [facility] Comment: Not Reported: BUN and Creatinine are within reference range. SODIUM 137 135 - 146 mmol/L [facility] POTASSIUM 3.7 3.5 - 5.3 mmol/L [facility] CHLORIDE 104 98 - 110 mmol/L [facility] CO2 30 20 - 32 mmol/L [facility] CALCIUM 8.9 8.6 - 10.4 mg/dL [facility] RR TOTAL PROTEIN 7.8 6.1 - 8.1 g/dL [facility] ALBUMIN 4.1 3.6 - 5.1 g/dL [facility] GLOBULIN 3.7 1.9 - 3.7 g/dL (calc) [facility] ALBUMIN/GLOBULIN RATIO 1.1 1.0 - 2.5 (calc) [facility] RR BILIRUBIN TOTAL 1.3(H) 0.2 - 1.2 mg/dL [facility] ALKALINE PHOSPHATASE 87 37 - 153 U/L [facility] AST 41(H) 10 - 35 U/L [facility] ALT 14 6 - 29 U/L [facility] Comment: Test Performed at: [facility] RR [address] [place] [address] Mukesh Stacy Blood 06/04/2025 4:06 PM CDT 06/04/2025 4:07 PM CDT Gladis Allen [facility] CHEMISTRY ORDERABLES Final Result [facility] [phone] [facility] [address], [place] [address] from Last 3 Months Insurance [facility] [id number] [facility] Care Teams Supervisor Shrimp Pond Relationship Specialty Start Date End Date Dae Peacock MD [facility] [address] [place] [phone] PCP - General Family Practice 06/12/11
--- OUTSIDE RECORDS SUMMARY | 2025-06-09 10:36 | XMS_ITS | Encounter Summary ---
Author Organization [facility] Address [address] [place] [address] Care Team Providers Care Foaming Machine Operator Name Role Phone Dae Peacock MD Primary Care Provider [phone] Reason for Referral * MRI (Routine) - Pending Review Specialty Diagnoses / Procedures Referred By Contac t Referred To Contact Radiology Diagnoses Elevated AFP Procedures MRI ABDOMEN W WO CONTRAST Gladis Allen FNP [address] [address] Phone: tel: fax: [facility] [place] [address] [place] [address] Phone: tel: fax: Referral ID Status Reason Start Date Expiration Date Visits Requested Visits Authorized [id number] Pending Review [facility] View CTS to Schedule 06/08/2025 07/09/2026 1 1 Reason for Visit * Reason Onset Date Comments Results 06/08/2025 Encounter Details Date Type Department Care Team (Latest Contact Info) Description 06/08/2025 Results Follow-Up [facility]- [place] [address] [place] [address] Gladis Allen FNP [address] [place] [address] CBC WITH DIFFERENTIAL, COMPREHENSIVE METABOLIC PANEL, ALPHA FETOPROTEIN TUMOR MARKER, Additional followed-up results: 9 Social History Tobacco Use Types Packs/Day Years Used Date Smoking Tobacco: Every Day Cigarettes Alcohol Use Standard Drinks/Week Comments No 0 (1 standard drink = 0.6 oz pur e alcohol) Comments Unknown Sex and Gender Information Value Date Recorded Sex Assigned at Not on file Legal Sex Female 11:[address] INTERPRETER Gender Identity Not on file Sexual Orientation Not on file documented as of this encounter Miscellaneous Notes * Telephone Encounter - Renea Shook CMA - 06/08/2025 3:04 PM CDT ----- Message from Gladis Allen sent at 06/08/2025 2:31 PM CDT ----- Would you instruct pt to schedule her US elastography - need this before starting Hepatitis C treatment. All labs otherwise came back. Her AFP, which is a protein made by the liver, returned slightly elevated and because of this I recommend MRCP for further evaluation of her liver to ensure she hasno concerning liver lesions. Place orders for this and inform patient. Thanks. ----- Message ----- From: Panfilo Seymour Incoming [facility] Results Sent: 06/04/2025 6:26 PM CDT To: TIFFANI Chua documented in this encounter Plan of Treatment Upcoming Encounters Date Type Department Care Team (Late st Contact Info) Description 12/03/2025 2:00 PM CDT Office Visit [facility] [place] [address] [place] [address] Gladis Allen FNP [address] [place] [address] Scheduled Orders Name Type Priority Associated Diagnoses Orde r Schedule MRI ABDOMEN W WO CONTRAST Imaging Routine Elevated AFP 1 Occurrences starting 06/08/2025 until 06/08/2026 documented as of this encounter Visit Diagnoses Diagnosis Elevated AFP- Primary Other nonspecific findings on examination of blood documented in this encounter Care Teams Foaming Machine Operator Relationship Specialty Start Date End Date Dae Peacock MD [facility] [place] [address] [place] [address] PCP - General Family Practice 06/12/11 documented as of this encounter
--- OUTSIDE RECORDS SUMMARY | 2025-06-09 10:36 | XMS_ITS | Patient Health Record ---
Author Organization [facility] Address [address] [place] [address] Care Team Providers Care Marketing Copywriter Name Role Phone Kwesi Carmichael Primary Care Provider Unavailabl e Jacky Ritter Unavailable Jorge Cohen Unavailable Unavailable Allergies Allergen (clinical [...] 40 % Miscellaneous 1 application Externally Not-Taking [place] 0.65 % Solution as directed Nasally Not-Taking [...] Tablet Sublingual as directed Sublingual Active Nystatin 116002 UNIT/GM Cream 1 application Externally Twice a [...] Do you drink alcohol? past Section Notes: 07/15/24 Dep - 07/15/24 Tob - 07/15/24 Problems Problem Type SNOMED Code ICD Code Onset Dates Problem Status W/U Status Risk Notes Problem Obesity (174378414) Obesity, unspecified (E66.9) Active confirmed Problem Cirrhosis of liver () Unspecified cirrhosis of liver (K74.60) Active confirmed Problem Cirrhosis of liver () Other cirrhosis of liver (K74.69) Active confirmed Problem Chronic hepatitis C (443552321) Chronic hepatitis C without hepatic coma (B18.2) Active confirmed Problem Viral hepatitis type C (26151201) Hepatitis C virus infection without hepatic coma, unspecified chronicity (B19.20) Active confirmed Problem Body mass index 30.00 to 34.99 (0039321562727 07) BMI 31.0-31.9,adult (Z68.31) Active confirmed Vital Signs Heart Rate 64 /min 10/20/2024 Temperature 98 degrees Fahrenheit 10/20/2024 Blood pressure diastolic 74 mm Hg 10/20/2024 Oximetry 98 % 10/20/2024 Height-cm 160.02 cm 10/20/2024 Weight-kg 80.47 kg 10/20/2024 Height 63 in 10/20/2024 Blood pressure systolic 130 mm Hg 10/20/2024 Weight 177.4 lbs 10/20/2024 BMI 31.42 kg/m2 10/20/2024 Encounters Encounter Location Date Provider Diagnosis [facility] [address] [address] 07/15/2024 Jacky Ritter Chronic hepatitis C without hepatic coma B18.2 ; BMI 31.0-31.9,adult Z68.31 and Depression screen Z13.31 [facility] [address] [address] 10/20/2024 Jacky Ritter Chronic hepatitis C without hepatic coma B18.2 ; Depression screen Z13.31 ; Exercise counseling Z71.82 ; Obesity, unspecified E66.9 ; Encounter for immunization Z23 and Immunization not carried out because of patient refusal Z28.21 [facility] [address] [address] 10/28/2024 Jacky Ritter Chronic hepatitis C without hepatic coma B18.2 [facility] [address] [address] 10/28/2024 Jacky Ritter Chronic hepatitis C without hepatic coma B18.2 Assessments Encounter Date Diagnosis (ICD Code) Assessment Notes Treatment Notes Treatment Clinical Notes Section Notes 07/15/2024 Chronic hepatitis C without hepatic coma (ICD-10 - B18.2) 07/15/2024 BMI 31.0-31.9,adult (ICD-10 - Z68.31) 10/20/2024 Chronic hepatitis C without hepatic coma [...] Information regarding nutritional supplements Contact information for [place] Department of Health and Human Services for additional resources Guide to reading nutrition labels Pharmacologic intervention options Surgical intervention options Mental health related to nutrition Portion distortion education Follow-Up appointment scheduled at check out. Plan Of Treatment No Information Insurance Providers Payer Name Payer Address Payer Phone Subscriber Number Group Number Insured Name Patient Relationship to Insured Coverage Start Date Coverage End Date [place] [address] [address] [place] [address] [id number] Bárbara Mayfield Self - patient is the insured Human Medicare Supplement [address] [address] [place] [address] [id number] Bárbara Mayfield Self - patient is the [...]
[2025-06-09 16:39] LABS: HEP C RNA Viral Load Quant 3330000 IU/mL (NOT DETECTED); HEP C RNA Viral Load Quant 6.52 Log IU/mL (NOT DETECTED)
== END 2025-06-09 12:36 | disposition home health service (06) | DRG 603 ==
LOC: ER 13:18 → MEDSURG 17:15
PROVIDERS: Admitting Provider Internal Medicine; Emergency Provider Emergency Medicine; PCP Nurse Practitioner Adult Health; Visit Provider Student in an Organized Health Care Education/Training Program
DX: L03.115 Cellulitis of right lower limb (principal); K74.60 Unspecified cirrhosis of liver; D69.6 Thrombocytopenia, unspecified; F17.210 Nicotine dependence, cigarettes, uncomplicated; J44.9 Chronic obstructive pulmonary disease, unspecified; F31.9 Bipolar disorder, unspecified; I50.9 Heart failure, unspecified; I11.0 Hypertensive heart disease with heart failure; D73.1 Hypersplenism; Z86.19 Personal history of other infectious and parasitic diseases
CPT/HCPCS: 36415; 80053; 80061; 82607; 82746; 83036; 83540; 83550; 83605; 83735; 84145; 84443; 85025; 85651; 86140; 86705; 86706; 86709; 86803; 87040; 87340; 87522; 93971; 96365; 96372; 96375; 99285; G0378; J0690; J0692; J1650; J2270; J2405; J2470; J3372; J3373; J7050; J9999